=== PATIENT | male | born 1950 | race Caucasian/White ===

== ENCOUNTER → 2016-07-25 | Day surgery (SDC) | payer OTHER ==
[~2016-07-25] VITALS: Ht 167.6 cm; Wt 60.2 kg
[~2016-07-25] MED LIST: ALPR0.25 PO; AMOX250C CHEW; AMOX875T2 PO; AMOXSUS PO; AMPICILLIN-SULBACTAM INJ 3 GM VIAL ONE; AMPICILLIN/SULBAC 3 GM/NS 100 ML IV SCH; DEXA2TAB PO; DEXAMETHASONE SOD PHOS 4 MG/ML VIAL ONE; DO NOT ADM ANY ANTICOAGULANT DRUGS XX PRN; FLUC100T2 PO; HYDR-3534 PO; HYDR-3580 PO; HYDR2TAB PO; INSULIN HUMAN REGULAR 1,000 UNITS/10 ML VIAL SQ PRN; LACTATED RINGER'S 1000 ML INJ 1,000 ML IV SCH; LACTATED RINGER'S 1000 ML IV SCH; METOPROLOL TARTRATE 25 MG TAB PO PRN; MIDAZOLAM HCL 2 MG/2 ML VIAL ONE; MILKSUS PO; MISC-163; MORP15TA73 PO; MOTR200T4 PO; OMEP20TA PO; ONDANSETRON HCL 4 MG/2 ML VIAL IV PUSH ONE; PROPOFOL 200 MG/20 ML AMP IV ONE; SENO8.6T5 PO; SODIUM CHLORID 0.9% 500 ML IV SCH; SODIUM CHLORIDE 0.9% INJ 100 ML ONE; WALKER WHEELS/F1 MIS; WHEEMIS3; fentaNYL CITRATE 250 MCG/5 ML AMP ONE
[2016-07-25 08:37] VITALS: BP 163/83; PULSE 98; RESP 18; TEMP 98.1; O2SAT 99
[2016-07-25 11:59] VITALS: BP 147/76; PULSE 84; RESP 18; TEMP 97.5; O2SAT 96
--- NOTE | 2016-07-25 17:25 | EKG ---
Date Performed: 07/25/2016 Time Performed: 08:56:43 PTAGE: 65 years EKG: Sinus rhythm MARKED LEFT AXIS DEVIATION ABNORMAL ECG NO PREVIOUS TRACING DOCTOR: Carlos Spear Interpretating Date/Time 07/25/2016 17:23:47
--- NOTE | 2016-09-05 23:29 | MP ---
cc: MARSHALL MATTHEW M.D. DATE OF SURGERY: July 25, [address] Marshall Matthew PREOPERATIVE DIAGNOSIS Metastatic squamous cell carcinoma of unknown primary. Mass left lateral neck. POSTOPERATIVE DIAGNOSIS: Metastatic squamous cell carcinoma of unknown primary. Mass left lateral neck. OPERATION PERFORMED 1. Direct laryngoscopy. 2. Fine needle aspiration biopsy of left neck mass x2. INDICATIONS Documented in the history and physical. DESCRIPTION OF OPERATION The patient was taken to OR #6 and placed in the supine position following induction of general anesthesia and intubation. A shoulder roll and a Sarwat head drape were put in place. A McIvor mouth gag was put in place and the oral cavity was examined manually and physically. There was no evidence of any mucosal lesions throughout the oral cavity, floor of mouth or base of tongue. The McIvor mouth gag was removed and the anterior commissure scope was brought into the field. Hypopharynx and larynx were brought into view. Careful inspection of the hypopharynx and larynx showed no evidence of mucosal lesions. The scope was then removed. The left neck mass was then addressed. It was cleaned with alcohol wipes and two separate needle aspiration biopsies were obtained. The first showed numerous small fragments of tissue. The second showed some thin brown fluid. These were both prepared for histological examination. The procedure was terminated. The patient was reversed from anesthesia and taken to recovery in good condition. No complications or blood loss. MD YONG Winters/CORRY /2:19 PM /11:26 PM
== END | disposition home or self-care (01) ==
LOC: HSDC 07:33
PROVIDERS: ATTEND Otolaryngology
DX: C79.89 Secondary malignant neoplasm of other specified sites (principal); R49.0 Dysphonia; R05 Cough; F17.210 Nicotine dependence, cigarettes, uncomplicated; Z01.810 Encounter for preprocedural cardiovascular examination
CPT/HCPCS: 00300; 10021; 31525; 93005; J0295; J1100; J2250; J2405; J3010; J7120

== ENCOUNTER → 2016-08-22 | Day surgery (SDC) | payer OTHER ==
[~2016-08-22] VITALS: Ht 167.6 cm; Wt 53.1 kg
[~2016-08-22] MED LIST changes: -AMPICILLIN/SULBAC 3 GM/NS 100 ML IV SCH; -DEXAMETHASONE SOD PHOS 4 MG/ML VIAL ONE; -DO NOT ADM ANY ANTICOAGULANT DRUGS XX PRN; -HYDR-3534 PO; -INSULIN HUMAN REGULAR 1,000 UNITS/10 ML VIAL SQ PRN; +LABETALOL HCL 100 MG/20 ML VIAL ONE; -LACTATED RINGER'S 1000 ML INJ 1,000 ML IV SCH; +LACTATED RINGER'S 1000 ML INJ 1,000 ML ONE; -LACTATED RINGER'S 1000 ML IV SCH; -METOPROLOL TARTRATE 25 MG TAB PO PRN; +MORPHINE SULFATE 4 MG/ML INJ ONE; -MOTR200T4 PO; +OXYMETAZOLINE HCL 0.05% 15 ML NASAL SPRAY NASAL ONE; -PROPOFOL 200 MG/20 ML AMP IV ONE; -SODIUM CHLORID 0.9% 500 ML IV SCH; -fentaNYL CITRATE 250 MCG/5 ML AMP ONE
[2016-08-22 06:58] VITALS: BP 157/48; PULSE 88; RESP 20; TEMP 97.9; O2SAT 100
[2016-08-22 09:35] VITALS: TEMP 97.8
[2016-08-22 10:00] VITALS: BP 153/77; PULSE 66; RESP 16; O2SAT 99
--- NOTE | 2016-08-24 07:39 | MP ---
cc: MARSHALL LONDON M.D. DATE OF OPERATION August 22, [address] 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 OPERATION PERFORMED 1. Survey biopsies of bilateral nasopharynx in search of primary. 2. Tonsillectomy. 3. Bilateral base of tongue biopsies. 4. Bilateral floor of mouth biopsies. INDICATIONS Marshall Long is a 65-year-old man with biopsy proven squamous cell carcinoma metastases of the left neck. Previous attempts at biopsy of oropharynx had shown no evidence of primary. His oncologist has requested further survey biopsies to try and clarify the site of the primary lesion prior to beginning radiation and chemotherapy treatment. DESCRIPTION OF OPERATION The patient was taken to OR #2 and placed in the supine position. Following induction of general anesthesia and intubation, the nose was packed bilaterally with cotton pledgets saturated in 0.05% Oxymetazoline. These remained in place while a McIvor mouth gag was put in place. The packing was then removed and using nasopharyngeal mirror for visual guidance, biopsies were obtained from the bilateral fossa of Rosenm ller using a Blakesley forceps passed via the nasal cavity. These biopsies were separately labeled and passed off the field for histologic examination. When this was completed, examination of the nasopharynx showed there to be asymmetry of tonsils with the left side larger than the right. Palpation of tonsils showed a thickening of tissue but no discrete mass within the left tonsil. The left tonsil was removed as excisional biopsy using the coblator technique on the right. A biopsy was obtained using Blakesley forceps from the right tonsil tissue. Direct laryngoscope was then used to bring in the view of the hypopharynx and the base of tongue and biopsies were obtained from the bilateral base of tongue. These were also separately labeled and passed off the field for histological examination and finally biopsies were obtained from the bilateral anterior floor of mouth. These were separately labeled and passed off the field as specimens. The McIvor mouth gag was then removed and the procedure was terminated. The patient was reversed from anesthesia and taken to Recovery in good condition. There were no complications. Blood loss was less than 10 mL. MD YONG Winters/BURTON /2:16 PM /7:26 AM
== END | disposition home or self-care (01) ==
LOC: PHSDC 06:23
PROVIDERS: ATTEND Otolaryngology
DX: C77.0 Secondary and unspecified malignant neoplasm of lymph nodes of head, face and neck (principal); C80.1 Malignant (primary) neoplasm, unspecified; J03.90 Acute tonsillitis, unspecified
CPT/HCPCS: 00170; 31535; 42806; 42826; 88304; 88305; J0295; J2250; J2270; J2405; J3010; J7120

== ENCOUNTER 2016-09-28 08:01 | Day surgery (SDC) | payer OTHER ==
[~2016-09-28] VITALS: Ht 165.1 cm; Wt 46.4 kg
[~2016-09-28 08:01] MED LIST changes: -ALPR0.25 PO; -AMOX250C CHEW; -AMOX875T2 PO; -AMOXSUS PO; -AMPICILLIN-SULBACTAM INJ 3 GM VIAL ONE; -FLUC100T2 PO; -HYDR-3580 PO; -LABETALOL HCL 100 MG/20 ML VIAL ONE; -LACTATED RINGER'S 1000 ML INJ 1,000 ML ONE; -MIDAZOLAM HCL 2 MG/2 ML VIAL ONE; -MILKSUS PO; -MISC-163; -MORPHINE SULFATE 4 MG/ML INJ ONE; -OMEP20TA PO; -ONDANSETRON HCL 4 MG/2 ML VIAL IV PUSH ONE; -OXYMETAZOLINE HCL 0.05% 15 ML NASAL SPRAY NASAL ONE; -SENO8.6T5 PO; -SODIUM CHLORIDE 0.9% INJ 100 ML ONE; -WALKER WHEELS/F1 MIS; -WHEEMIS3
[2016-09-28 08:20] VITALS: BP 110/69; PULSE 95; RESP 20; TEMP 97.7; O2SAT 92
[2016-09-28] MEDS ORDERED: ceFAZolin 2 GM PREMIX 50 ML - gastrostomy and jejunostomy initial insertion IV SCH (08:30)
[2016-09-28] MEDS ORDERED: SODIUM CHLORIDE 0.9% 1000 ML IV SCH (08:30)
[2016-09-28] MEDS ORDERED: AMOX250C CHEW (08:32)
[2016-09-28] MEDS ORDERED: OMEP20TA PO (08:32)
[2016-09-28 09:02] LABS: APTT (PATIENT) 25.9 SEC (24.3-30.1); PROTHROMBIN TIME - PATIENT 10.9 SEC (9.8-11.6)
[2016-09-28] MEDS ORDERED: MIDAZOLAM HCL 5 MG/5 ML VIAL ONE (10:10)
[2016-09-28] MEDS ORDERED: fentaNYL CITRATE 250 MCG/5 ML AMP ONE (10:11)
[2016-09-28] MEDS ORDERED: GLUCAGON 1 MG/ML VIAL ONE (10:18)
[2016-09-28 10:50] VITALS: BP 107/59; PULSE 76; RESP 18; TEMP 98.1; O2SAT 97
[2016-09-28] MEDS ORDERED: IOHEXOL 350 MG/ML 50 ML BTL (for RAD DIAG) G-TUBE ONE (10:50)
--- NOTE | 2016-09-28 11:02 | PD.RAD ---
Post Procedure Progress Note Pre Procedure Diagnosis: (1) Mass of left side of neck Post Procedure Diagnosis: (1) Mass of left side of neck Procedure Date: Sep 28, 2016 Supervising Radiologist: Hugo Brandon JR Proceduralist/Assist: Magda Robles, RT(R), Yun Degroot RT(R)() Anesthesia: Conscious Sedation Plan of Activity Patient to Unit: ROPU Patient Condition: Good See PACS Report for procedural detail/treatment Feeding Tube Gastrostomy Placement Colombian: 18 Findings: G tube in good position. Plan T fasteners should fall off in approx 2-3 weeks Jr. Aleksandr,Huog Lindsey MD Sep 28, 2016 11:02
[2016-09-28 11:05] VITALS: BP 108/57; PULSE 75; RESP 18; O2SAT 96
--- NOTE | 2016-09-28 11:23 | RADRPT ---
EXAM DATE/TIME: 09/28/2016 08:43 [facility] COMPARISON: No previous studies available for comparison. INDICATIONS : Patient with history of squamous cell cancer of the neck in need of G-tube placement. MEDICAL HISTORY : Left neck mass, Gout SURGICAL HISTORY : Left ear surgery, Left neck mass biopsy ENCOUNTER: Initial ACUITY: 1 month PAIN SCORE: 0/10 FLUORO TIME: 4.4 minutes IMAGE SERIES: 1 SEDATION TIME: 30 minutes CONTRAST: 5 cc Omnipaque (iohexol) 350 MEDICATION(S): 1.) 2 mg midazolam (Versed) IV 2.) 100 mcg Fentanyl (Sublimaze) IV Prophylactic antibiotics were administered with appropriate pre-procedure timing. Vancomycin within 2 hours of procedure, Ancef (or alternative) within 1 hour of procedure. DEVICE(S): 1.) 18 Fr gastrostomy tube PROCEDURE : 1. Limited abdominal ultrasound. 2. Fluoroscopically guided gastrostomy tube placement. 3. Conscious sedation with continuous EKG and oximetry monitoring. The risks, benefits and alternatives to the procedure were explained and verbal and written consent w as obtained. The site was prepped in sterile fashion. Full sterile technique was used, including ca p, mask, sterile gloves and gown and a large sterile sheet. Hand hygiene and 2% chlorhexidine and/or betadine/alcohol prep was utilized per protocol for cutaneous antisepsis. The skin and subcutaneous tissues were infiltrated with local anesthetic solution. Ultrasound was used to nato the position of the liver. The stomach was insufflated with room air. Th ree percutaneous fasteners were placed to secure the anterior gastric wall. A small incision was made between the fasteners. The stomach was accessed with an 18 gauge needle. A n 0.035 wire was advanced into the small bowel. The tract was dilated. The gastrostomy tube was int roduced through a peel-away sheath. The position was confirmed with an injection of contrast. Conscious sedation was performed with the prescribed dosages and duration as above in the presence of an independent trained radiology nurse to assist in the monitoring of the patient. EKG and oximetry remained stable throughout the procedure. The patient tolerated the procedure well and there were n o complications. The patient was sent to post anesthesia recovery in stable condition. CONCLUSION: Uncomplicated gastrostomy tube placement as above. Hugo Brandon Jr., MD on September 28, 2016 at 11:17 Board Certified Radiologist. This report was verified electronically.
[2016-09-28 11:35] VITALS: BP 120/59; PULSE 66; RESP 16; O2SAT 92
[2016-09-28 12:05] VITALS: BP 119/60; PULSE 69; RESP 18; O2SAT 90
[2016-09-28 13:05] VITALS: BP 124/70; PULSE 72; RESP 18; O2SAT 94
== END 2016-09-28 13:25 | disposition home or self-care (01) ==
LOC: HROP 08:01 → HRIP 08:02 → HROP 13:25
PROVIDERS: ATTEND Internal Medicine
DX: R22.1 Localized swelling, mass and lump, neck (principal); Z85.828 Personal history of other malignant neoplasm of skin
CPT/HCPCS: 49440; 76942; 85610; 85730; 99152; 99153; C1769; C1887; J0690; J1610; J2250; J3010; J7030; Q9967

== ENCOUNTER 2016-10-02 08:33 | Day surgery (SDC) | payer OTHER ==
[~2016-10-02] VITALS: Ht 165.1 cm; Wt 45.9 kg
[~2016-10-02 08:33] MED LIST changes: +AMOX250C CHEW; +OMEP20TA PO
[2016-10-02] MEDS ORDERED: ceFAZolin 2 GM PREMIX 50 ML - gastrostomy and jejunostomy initial insertion IV SCH (10:00)
[2016-10-02] MEDS ORDERED: VANCOMYCIN 1000 MG/NS 250 ML - implanted port/tunneled catheter IV SCH ×2 (10:00)
[2016-10-02] MEDS ORDERED: POVIDONE IODINE 5% (ANTISEPSIS KIT) 4 APPLICATIONS EACH NARE SCH (10:00)
[2016-10-02] MEDS ORDERED: CHLORHEXIDINE GLUCONATE 2 % 1 PACK (2 CLOTHS) TOPICAL SCH (10:00)
[2016-10-02] MEDS ORDERED: fentaNYL CITRATE 250 MCG/5 ML AMP ONE (10:45)
[2016-10-02] MEDS ORDERED: MIDAZOLAM HCL 5 MG/5 ML VIAL ONE (10:45)
[2016-10-02] MEDS ORDERED: LIDOCAINE 1%/EPINEPHrine 1:100,000 SOLN 30 ML VIAL ONE (11:06)
[2016-10-02 12:15] VITALS: BP 128/68; PULSE 90; RESP 18; TEMP 98.4; O2SAT 98
[2016-10-02 12:30] VITALS: BP 131/66; PULSE 85; RESP 18; O2SAT 96
[2016-10-02 13:00] VITALS: BP 130/53; PULSE 86; RESP 16; O2SAT 92
[2016-10-02] MEDS ORDERED: SODIUM CHLORIDE 0.9% FLUSH 5 ML FLUSH IVF PRN (13:00)
--- NOTE | 2016-10-02 13:00 | PD.RAD ---
Post Procedure Progress Note Pre Procedure Diagnosis: (1) Head and neck cancer Post Procedure Diagnosis: (1) Head and neck cancer Procedure Date: Oct 02, 2016 Supervising Radiologist: Abe Jolly Proceduralist/Assist: RT Brannon(R)() Anesthesia: Local, Conscious Sedation Plan of Activity Patient to Unit: ROPU Patient Condition: Good See PACS Report for procedural detail/treatment Central Venous Access Device Procedure 1 Right Internal Jugular Infusaport Placement single lumen German: 8 Abe Jolly MD Oct 02, 2016 13:00
[2016-10-02 13:30] VITALS: BP 125/62; PULSE 86; RESP 16; O2SAT 97
--- NOTE | 2016-10-02 16:25 | RADRPT ---
EXAM DATE/TIME: 10/02/2016 10:59 [facility] COMPARISON: No previous studies available for comparison. INDICATIONS : Patient with a history of head and neck cancer. MEDICAL HISTORY : Head and neck cancer SURGICAL HISTORY : Left tonsillectomy biopsy ENCOUNTER: Subsequent ACUITY: 1 month PAIN SCORE: 0/10 FLUORO TIME: 0.9 minutes IMAGE SERIES: 0 SEDATION TIME: 30 minutes ACCESS: Right internal jugular vein SEDATION: 1.) 3 mg midazolam (Versed) IV 2.) 150 mcg fentanyl (Sublimaze) IV Prophylactic antibiotics were administered with appropriate pre-procedure timing. Vancomycin within 2 hours of procedure, Ancef (or alternative) within 1 hour of procedure. DEVICE: 1. 8 Qatari single lumen Bard Power Port PROCEDURE : 1. Continuous pulse oximetry and EKG monitoring. 2. Intravenous conscious sedation. 3. Ultrasound guidance for venous access. 4. Fluoroscopic guided implantable central venous port placement. The patient was placed supine. The neck was prepped in sterile fashion. Full sterile technique was u sed, including cap, mask, sterile gloves and gown, and a large sterile sheet. Hand hygiene and 2% ch lorhexidine Betadine was utilized per protocol for cutaneous antisepsis with appropriate dry time for site. The skin and subcutaneous tissues were infiltrated with local anesthetic solution. Under direct ultrasound guidance, central venous access was accomplished in the targeted vessel. The ultrasound images depicting access guidance were stored and saved to PACS for permanent record. A s ubcutaneous pocket was created using blunt dissection. The port was introduced to the pocket. The c atheter tubing was fed through a subcutaneous tunnel to the venotomy site. The catheter tubing was c ut to a suitable length and then was introduced through a valved Peel-Away sheath and positioned with catheter tubing tip at the cavo-atrial junction level. The pocket incision was closed with subcutic ular Vicryl suture. Steri-Strips were applied. The port was flushed and locked with heparin solutio n per protocol. Sterile dressing was applied to the site. The patient tolerated the procedure well. Conscious sedation was performed with the prescribed dosages and duration as above in the presence of an independent trained radiology nurse to assist in the monitoring of the patient. EKG and oximetry remained stable throughout the procedure. The patient tolerated the procedure well and there were no complications. The patient was sent to post anesthesia recovery in stable condition. CONCLUSION: Uncomplicated ultrasound and fluoroscopic guided implanted central venous port catheter placement as described in detail above. An 8 Qatari Power port was placed. Abe Jolly MD on October 02, 2016 at 16:22 Board Certified Radiologist. This report was verified electronically.
== END 2016-10-02 14:15 | disposition home or self-care (01) ==
LOC: HROP 08:33 → HRIP 08:37 → HROP 14:15
PROVIDERS: ATTEND Internal Medicine
DX: Z45.2 Encounter for adjustment and management of vascular access device (principal); C76.0 Malignant neoplasm of head, face and neck
CPT/HCPCS: 36561; 76937; 77001; 99152; 99153; C1788; J0690; J1642; J2250; J3010; J3370; J7050

== ENCOUNTER 2016-10-31 16:06 | Inpatient (IN) | payer OTHER, MEDICARE ==
[2016-10-31] VITALS (7 sets, daily range): BP systolic 90–118; BP diastolic 53–58; PULSE 69–86; RESP 16; O2SAT 93–98
[~2016-10-31] VITALS: Ht 170.2 cm; Wt 42.0 kg
[~2016-10-31 16:06] MED LIST changes: -AMOX250C CHEW
--- NOTE | 2016-10-31 16:21 | PD ---
Physical Exam Time Seen by Provider: 16:15 Narrative 66 year old male with history of neck cancer currently being treated with radiation and chemo is sent here by Dr. Guthrie for evaluation of AMS, and possible dehydration. Pt has been unable to eat or drink for a couple days. Does have a PEG tube but family has not started nutrition because the "wants a professional" to do it the first time. states the pt has been hallucinating. Pt has had decreased urinary output. No fever or chills. Data Data Last Documented VS Vital Signs Date Time Temp Pulse Resp B/P Pulse Ox O2 Delivery O2 Flow Rate FiO2 10/31/16 16:42 98 Room Air 10/31/16 16:24 86 16 91/54 Orders Complete Blood Count With Diff (10/31/16 16:32) Comprehensive Metabolic Panel (10/31/16 16:32) Prothrombin Time / Inr (Pt) (10/31/16 16:32) Act Partial Throm Time (Ptt) (10/31/16 16:32) Urinalysis - C+S If Indicated (10/31/16 16:32) Iv Access Insert/Monitor (10/31/16 16:32) Ecg Monitoring (10/31/16 16:32) Oximetry (10/31/16 16:32) Sodium Chlor 0.9% 1000 Ml Inj (Ns 1000 M (10/31/16 16:32) Electrocardiogram (10/31/16 16:32) Lactic Acid (10/31/16 16:32) Ct Brain W/O Iv Contrast(Rout) (10/31/16 ) Sodium Chlor 0.9% 1000 Ml Inj (Ns 1000 M (10/31/16 18:01) Admit Order (Ed Use Only) (10/31/16 18:08) Potassium Chloride Eff (K-Lyte Cl Eff) (10/31/16 18:15) Consult Radiation Oncology (10/31/16 ) Place In Observation (10/31/16 ) Vital Signs (Adult) Q4H (10/31/16 18:12) Activity Oob With Assistance (10/31/16 18:12) Intake + Output PRANAV.QSHIFT (10/31/16 18:12) Diet Npo (10/31/16 Dinner) Sodium Chlor 0.9% 1000 Ml Inj (Ns 1000 M (10/31/16 18:12) Sodium Chloride 0.9% Flush (Ns Flush) (10/31/16 18:15) Sodium Chloride 0.9% Flush (Ns Flush) (10/31/16 21:00) Acetaminophen (Tylenol) (10/31/16 18:15) Ondansetron Inj (Zofran Inj) (10/31/16 18:15) Magnesium Hydroxide Liq (Milk Of Magnesi (10/31/16 18:15) Temazepam (Restoril) (10/31/16 18:15) Basic Metabolic Panel (Bmp) (11/01/16 06:00) Comprehensive Metabolic Panel (11/01/16 06:00) Resp Oxygen Chito C Titrat 1-4 L (10/31/16 ) Pt Request For Service (10/31/16 18:12) Case Management Consult (10/31/16 18:12) Enoxaparin Inj (Lovenox Inj) (10/31/16 18:15) Scd Bilateral/Knee High PRANAV.BID (10/31/16 18:12) Cody Bilateral/Knee High PRANAV.QSHIFT (10/31/16 18:12) Labs Laboratory Tests Test 10/31/16 17:10 White Blood Count 4.5 TH/MM3 Red Blood Count 2.58 MIL/MM3 Hemoglobin 8.9 GM/DL Hematocrit 24.8 % Mean Corpuscular Volume 96.0 FL Mean Corpuscular Hemoglobin 34.3 PG Mean Corpuscular Hemoglobin 35.7 % Concent Red Cell Distribution Width 14.6 % Platelet Count 37 TH/MM3 Mean Platelet Volume 8.0 FL Neutrophils (%) (Auto) 84.8 % Lymphocytes (%) (Auto) 9.2 % Monocytes (%) (Auto) 5.1 % Eosinophils (%) (Auto) 0.3 % Basophils (%) (Auto) 0.6 % Neutrophils # (Auto) 3.8 TH/MM3 Lymphocytes # (Auto) 0.4 TH/MM3 Monocytes # (Auto) 0.2 TH/MM3 Eosinophils # (Auto) 0.0 TH/MM3 Basophils # (Auto) 0.0 TH/MM3 CBC Comment AUTO DIFF Differential Comment AUTO DIFF CONFIRMED Platelet Estimate LOW Platelet Morphology Comment NORMAL Prothrombin Time 11.5 SEC Prothromb Time International 1.0 RATIO Ratio Activated Partial 31.6 SEC Thromboplast Time Sodium Level 130 MEQ/L Potassium Level 3.2 MEQ/L Chloride Level 93 MEQ/L Carbon Dioxide Level 27.3 MEQ/L Anion Gap 10 MEQ/L Blood Urea Nitrogen 19 MG/DL Creatinine 1.05 MG/DL Estimat Glomerular Filtration 70 ML/MIN Rate Random Glucose 109 MG/DL Lactic Acid Level 0.6 mmol/L Calcium Level 8.6 MG/DL Total Bilirubin 0.7 MG/DL Aspartate Amino Transf 9 U/L (AST/SGOT) Alanine Aminotransferase 14 U/L (ALT/SGPT) Alkaline Phosphatase 94 U/L Total Protein 6.6 GM/DL Albumin 2.5 GM/DL [facility] Medical Record Reviewed: Yes Supervised Visit with SHONDA: No Narrative Course 66 year old male presents to ED for evaluation of AMS and possible dehydration. Appears ill. Mildly hypotensive, otherwise VSS. Condition: Stable Maite Erwin Oct 31, 2016 16:21
[2016-10-31] MEDS ORDERED: SODIUM CHLOR 0.9% 1000 ML INJ 1,000 ML IV SCH ×2 (16:32→18:01)
[2016-10-31] MEDS ORDERED: ALPR0.25 PO (17:11)
[2016-10-31] MEDS ORDERED: FLUC100T2 PO (17:11)
[2016-10-31 17:31] LABS: AUTOMATED NEUTROPHIL # 3.8 TH/MM3 (1.8-7.7); BASOPHIL % 0.6 % (0.0-2.0); EOSINOPHIL % 0.3 % (0.0-4.0); HEMATOCRIT 24.8 % (39.0-51.0); LYMPH % 9.2 % (9.0-44.0); LYMPHOCYTE # 0.4 TH/MM3 (1.0-4.8); MEAN CORPUSCULAR HEMOGLOBIN 34.3 PG (27.0-34.0); MEAN CORPUSCULAR HGB CONC 35.7 % (32.0-36.0); MONO % 5.1 % (0.0-8.0); NEUT % 84.8 % (16.0-70.0); PLATELET COUNT 37 TH/MM3 (150-450); RED BLOOD COUNT 2.58 MIL/MM3 (4.50-5.90); RED CELL DISTRIBUTION WIDTH 14.6 % (11.6-17.2); WHITE BLOOD COUNT 4.5 TH/MM3 (4.0-11.0)
[2016-10-31 17:36] LABS: HEMO FLAGS AUTO DIFF
[2016-10-31 17:41] LABS: APTT (PATIENT) 31.6 SEC (24.3-30.1); PROTHROMBIN TIME - PATIENT 11.5 SEC (9.8-11.6)
[2016-10-31 17:50] LABS: ALT (GPT) 14 U/L (12-78); ANION GAP 10 MEQ/L (5-15); AST (GOT) 9 U/L (15-37); BICARBONATE 27.3 MEQ/L (21.0-32.0); BLOOD UREA NITROGEN 19 MG/DL (7-18); CHLORIDE 93 MEQ/L (98-107); GLOMERULAR FILTRATION RATE 70 ML/MIN (>89); POTASSIUM 3.2 MEQ/L (3.5-5.1); SODIUM (NA) 130 MEQ/L (136-145)
[2016-10-31 17:52] LABS: ALKALINE PHOSPHATASE 94 U/L (45-117); TOTAL BILIRUBIN ADULT 0.7 MG/DL (0.2-1.0)
--- NOTE | 2016-10-31 17:56 | RADRPT ---
EXAM DATE/TIME: 10/31/2016 17:20 [facility] COMPARISON: CT SIMULATION, September 07, 2016, 10:55. INDICATIONS : Altered mental status with dehydration ,post fall. RADIATION DOSE: 38.14 CTDIvol (mGy) MEDICAL HISTORY : Malignancy. SURGICAL HISTORY : port placement for chemo ENCOUNTER: Initial ACUITY: 1 day PAIN SCALE: 7/10 LOCATION: cranial TECHNIQUE: Multiple contiguous axial images were obtained of the head. Using automated exposure control and adj ustment of the mA and/or kV according to patient size, radiation dose was kept as low as reasonably a chievable to obtain optimal diagnostic quality images. FINDINGS: CEREBRUM: The ventricles are symmetric in size. No evidence of midline shift. No evidence of acute blood prod ucts. There is a focal hypodensity in the high convexity right frontal region extending to the subco rtical region. A prior CT simulation scan in August 2016 had demonstrated a similar size hypodensi ty. No evidence of mass effect. No extra-axial fluid collections. POSTERIOR FOSSA: The cerebellum and brainstem are intact. The 4th ventricle is midline. The cerebellopontine angle i s unremarkable. EXTRACRANIAL: The visualized portion of the orbits is intact. SKULL: The calvaria is intact. No evidence of skull fracture. CONCLUSION: No acute findings. The patient has had radiation therapy to the brain and there is a stable hypodens ity in the right frontal region. Hugo Goodman MD on October 31, 2016 at 17:51 Board Certified Radiologist. This report was verified electronically.
[2016-10-31] MEDS ORDERED: ACETAMINOPHEN 325 MG TAB PO PRN (18:15)
[2016-10-31] MEDS ORDERED: SODIUM CHLORIDE 0.9% FLUSH 10 ML FLUSH IV FLUSH PRN (18:15)
[2016-10-31] MEDS ORDERED: POTASSIUM CHLORIDE 25 MEQ EFFERVESCENT TAB PO ONE (18:15)
[2016-10-31] MEDS ORDERED: TEMAZEPAM 15 MG CAP PO PRN (18:15)
[2016-10-31] MEDS ORDERED: ONDANSETRON HCL 4 MG/2 ML VIAL IVP PRN (18:15)
[2016-10-31] MEDS ORDERED: ENOXAPARIN SODIUM 40 MG/0.4 ML SYRINGE SQ SCH (18:15)
[2016-10-31] MEDS ORDERED: MAGNESIUM HYDROXIDE SUSP 30 ML CUP PO PRN (18:15)
[2016-10-31 18:16] LABS: SCAN/DIFF AUTO DIFF CONFIRMED
[2016-10-31 18:18] LABS: PLATELET ESTIMATE SMEAR LOW (NORMAL); PLATELET MORPHOLOGY NORMAL (NORMAL)
--- NOTE | 2016-10-31 18:18 | PD ---
HPI Chief Complaint: Altered Mental Status Time Seen by Provider: 18:12 Travel History International Travel<30 days: No Contact w/Intl Traveler<30days: No Traveled to known affect area: No History of Present Illness HPI 66-year-old male that presents to the ED for evaluation of altered mental status. Patient has a chronic history of neck cancer and gets radiation as well as chemotherapy. Patient follows with Dr. Fernandez for medical oncology as well as Dr. daniel for radiation oncology. Patient has been compliant with treatment but continues to smoke. Patient had a PEG tube placed about 3 weeks ago. has not used it because she doesn't feel comfortable using it for the first time. Patient has not been able to eat or drink for the past 2 days. His be more altered than his usual. Per family she is usually very sharp but they have noted a significant decline in his mental status in the past 2 days. No fevers chills or sweats. Patient last received his radiation this morning and was seen by Dr. daniel who recommended that he comes to the ED to get admitted for hydration as well as further evaluation. Patient denies any other symptom. No bowel movement issues. No nausea or vomiting. She denies taking any blood thinners. No allergies to medication. Denies any new pain other than her chronic neck pain. PFSH Past Medical History Cancer: Yes (neck) Cardiovascular Problems: No Diabetes: No Diminished Hearing: No Endocrine: No Genitourinary: No Hepatitis: No Hiatal Hernia: No Immune Disorder: No Musculoskeletal: No Neurologic: No Psychiatric: No Reproductive: No Respiratory: No Immunizations Current: Yes Thyroid Disease: No Past Surgical History Abdominal Surgery: No AICD: No Body Medical Devices: none per pt Cardiac Surgery: No Ear Surgery: Yes (left ear) Endocrine Surgery: No Eye Surgery: No Genitourinary Surgery: No Gynecologic Surgery: No Joint Replacement: No Oral Surgery: No Pacemaker: No Thoracic Surgery: No Other Surgery: Yes (LT THROAT FOR CANCER) Social History Alcohol Use: No Tobacco Use: Yes Substance Use: No Allergies-Medications (Allergen,Severity, Reaction): Coded Allergies: No Known Allergies (Unverified , 10/02/16) Reported Meds & Prescriptions Reported Meds & Active Scripts Active Reported Alprazolam 0.25 Mg Tab 0.25 Mg PO Q4H PRN Fluconazole 100 Mg Tab 100 Mg PO DAILY Omeprazole 20 Mg Tab 20 Mg PO DAILY Morphine Sulfate CR (Morphine Sulfate) 15 Mg Tab 30 Mg PO BID Dexamethasone 2 Mg Tab 2 Mg PO DAILY Hydromorphone (Hydromorphone HCl) 2 Mg Tab 2 Mg PO Q6H PRN Review of Systems Except as stated in HPI: all other systems reviewed are Neg Physical Exam Narrative GENERAL: SKIN: Warm and dry. HEAD: Atraumatic. Normocephalic. EYES: Pupils equal and round. No scleral icterus. No injection or drainage. ENT: No nasal bleeding or discharge. Mucous membranes pink and moist. Tongue is midline. No uvula deviation. NECK: Trachea midline. No JVD. CARDIOVASCULAR: Regular rate and rhythm. No murmurs, S3, S4. RESPIRATORY: No accessory muscle use. Clear to auscultation. Breath sounds equal bilaterally. GASTROINTESTINAL: Abdomen soft, non-tender, nondistended. Hepatic and splenic margins not palpable. Patient has a PEG tube in place with no sign of erythema or infection MUSCULOSKELETAL: Extremities without clubbing, cyanosis, or edema. No obvious deformities. Full range of motion of the upper and lower extremities bilaterally. 2+ pulses bilaterally. NEUROLOGICAL: Awake and alert. No obvious cranial nerve deficits. Motor grossly within normal limits. Five out of 5 muscle strength in the arms and legs. Normal speech. PSYCHIATRIC: Appropriate mood and affect; insight and judgment normal. Data Data Last Documented VS Vital Signs Date Time Temp Pulse Resp B/P Pulse Ox O2 Delivery O2 Flow Rate FiO2 10/31/16 16:42 98 Room Air 10/31/16 16:24 86 16 91/54 Orders Complete Blood Count With Diff (10/31/16 16:32) Comprehensive Metabolic Panel (10/31/16 16:32) Prothrombin Time / Inr (Pt) (10/31/16 16:32) Act Partial Throm Time (Ptt) (10/31/16 16:32) Urinalysis - C+S If Indicated (10/31/16 16:32) Iv Access Insert/Monitor (10/31/16 16:32) Ecg Monitoring (10/31/16 16:32) Oximetry (10/31/16 16:32) Sodium Chlor 0.9% 1000 Ml Inj (Ns 1000 M (10/31/16 16:32) Electrocardiogram (10/31/16 16:32) Lactic Acid (10/31/16 16:32) Ct Brain W/O Iv Contrast(Rout) (10/31/16 ) Sodium Chlor 0.9% 1000 Ml Inj (Ns 1000 M (10/31/16 18:01) Labs Laboratory Tests Test 10/31/16 17:10 White Blood Count 4.5 TH/MM3 Red Blood Count 2.58 MIL/MM3 Hemoglobin 8.9 GM/DL Hematocrit 24.8 % Mean Corpuscular Volume 96.0 FL Mean Corpuscular Hemoglobin 34.3 PG Mean Corpuscular Hemoglobin 35.7 % Concent Red Cell Distribution Width 14.6 % Platelet Count 37 TH/MM3 Mean Platelet Volume 8.0 FL Neutrophils (%) (Auto) 84.8 % Lymphocytes (%) (Auto) 9.2 % Monocytes (%) (Auto) 5.1 % Eosinophils (%) (Auto) 0.3 % Basophils (%) (Auto) 0.6 % Neutrophils # (Auto) 3.8 TH/MM3 Lymphocytes # (Auto) 0.4 TH/MM3 Monocytes # (Auto) 0.2 TH/MM3 Eosinophils # (Auto) 0.0 TH/MM3 Basophils # (Auto) 0.0 TH/MM3 CBC Comment AUTO DIFF Prothrombin Time 11.5 SEC Prothromb Time International 1.0 RATIO Ratio Activated Partial 31.6 SEC Thromboplast Time Sodium Level 130 MEQ/L Potassium Level 3.2 MEQ/L Chloride Level 93 MEQ/L Carbon Dioxide Level 27.3 MEQ/L Anion Gap 10 MEQ/L Blood Urea Nitrogen 19 MG/DL Creatinine 1.05 MG/DL Estimat Glomerular Filtration 70 ML/MIN Rate Random Glucose 109 MG/DL Lactic Acid Level 0.6 mmol/L Calcium Level 8.6 MG/DL Total Bilirubin 0.7 MG/DL Aspartate Amino Transf 9 U/L (AST/SGOT) Alanine Aminotransferase 14 U/L (ALT/SGPT) Alkaline Phosphatase 94 U/L Total Protein 6.6 GM/DL Albumin 2.5 GM/DL [facility] Medical Decision Making Medical Screen Exam Complete: Yes Emergency Medical Condition: Yes Medical Record Reviewed: Yes Interpretation(s) CBC & BMP Diagram 10/31/16 17:[address] 10/31/16 0000 Signed Impressions: Service Date/Time: Monday, October 31, 2016 17:20 - CONCLUSION: No acute findings. The patient has had radiation therapy to the brain and there is a stable hypodensity in the right frontal region. Hugo Goodman MD Differential Diagnosis Dehydration versus anorexia versus cancer versus medication side effect versus infection versus altered mental status versus CVA Narrative Course 66-year-old male that presents to the ED for evaluation of altered mental status. Patient was properly examined and was found to have signs and symptoms consistent appears to be slight altered mental status and dehydration. Patient is a cancer patient. Patient received radiation today and his radiologist oncologist want him to get evaluated for this as well as possible admitted. and patient agree with plan. At this time labs and imaging were ordered to eyes and of acute disease. Labs and imaging showed dehydration but no sign of acute ischemia. At this time I recommend admission. Patient was found to be slightly hypotensive as well as and imaging will low platelet count likely secondary to the chemotherapy. At this time I recommend IV fluids. Admission to medical team. Case was discussed with Dr. Bell who agrees to admission. My attending Dr. Montelongo agrees with plan. Diagnosis Primary Impression: Altered mental status Qualified Code: R41.82 - Altered mental status, unspecified altered mental status type Additional Impressions: Head and neck cancer Dehydration Admitting Information Admitting Physician Requests: Observation Paul Fernandez Oct 31, 2016 18:17
[2016-10-31] MEDS: SODIUM CHLOR 0.9% 1000 ML INJ 1,000 ML IV SCH (20:37)
[2016-10-31] MEDS: SODIUM CHLORIDE 0.9% FLUSH 10 ML FLUSH IV FLUSH SCH (21:00)
[2016-10-31] MEDS ORDERED: ALPRAZolam 0.25 MG TAB PO PRN (22:30)
--- NOTE | 2016-10-31 22:44 | HHI.HP ---
[facility] Jorge Gilbert MD Admission Diagnosis altered mental status, dehydration, inability to eat or drink Diagnoses: (1) Squamous cell carcinoma of head and neck (2) Altered mental status (3) Dehydration (4) Hypokalemia (5) Anemia (6) Hyponatremia (7) Acute renal insufficiency (8) Thrombocytopenia Chief Complaint: my brought me to hospital Travel History International Travel<30 Days: No Contact w/Intl Traveler <30 Da: No Traveled to Known Affected Are: No History of Present Illness Mr. 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 The patient is being treated by Dr. Sparkle Gilbert oncologist and Dr. Dominic Guthrie radiation oncologist. He has no primary care physician. A PEG tube was placed 3 weeks ago but this has not been used despite patients inability to eat or drink for the past few days. History was obtained from both a family friend at the bedside and from the patient. The patient frequently denies symptoms that the family friend reports he has been having. The patient has not been eating well and has not slept for 2 days. Since 10/28/2016, the patient has not been able to eat or drink well at all. He has had some nausea with a few episodes of vomiting according to the family friend. The family friend also reports that he has had some diarrhea but she is unable to tell us if the stools or black or bloody. The patient had impacted stool last week that was treated with a fleets enema ordered by Dr. Guthrie - which produced an unknown amount of stool but did produce some stool. The patient's family believes that he has been having decreased urinary output. They have also noted that he has been having a gurgling in his throat at the time he drinks liquids by mouth. The family reports that the patient has been dyspneic but the patient denies this. last dose chemo 10/24 hydration was 10/26 radiation every day sunday through sunday at 9a.m. Patient himself denies chest pain or shortness of breath. He reports significant pain at the left side of his neck where his cancer is located. . Review of Systems Except as stated in HPI: all other systems reviewed are Neg Past Family Social History Past Medical History Squamous cell carcinoma left neck discovered in June 2016 Likely undiagnosed COPD . Past Surgical History PEG tube Left neck tumor resection - 9 yrs ago . Reported Medications Reported Meds & Active Scripts Active Reported Alprazolam 0.25 Mg Tab 0.25 Mg PO Q4H PRN Fluconazole 100 Mg Tab 100 Mg PO DAILY Omeprazole 20 Mg Tab 20 Mg PO DAILY Morphine Sulfate CR (Morphine Sulfate) 15 Mg Tab 30 Mg PO BID Dexamethasone 2 Mg Tab 2 Mg PO DAILY Hydromorphone (Hydromorphone HCl) 2 Mg Tab 2 Mg PO Q6H PRN . Allergies: Coded Allergies: No Known Allergies (Unverified , 10/02/16) Active Ordered Medications Current Medications Sodium Chloride 1,000 ml @ 1,000 mls/hr Q1H IV Last administered on 10/31/16 17:07; Start 10/31/16 at 16:32; Stop 10/31/16 at 17:31; Status DC Sodium Chloride (NS 1000 ml Inj) 1,000 ml @ 1,000 mls/hr Q1H IV Last administered on 10/31/16 18:15; Start 10/31/16 at 18:01; Stop 10/31/16 at 19:00 ; Status DC Potassium Bicarb/ Potassium Chloride 25 meq 25 meq ONCE ONCE PO Last administered on 10/31/16 18:27; Start 10/31/16 at 18:15; Stop 10/31/16 at 18:16 ; Status DC Sodium Chloride (NS 1000 ml Inj) 1,000 ml @ 100 mls/hr Q10H IV Last administered on 10/31/16 20:37; Start 10/31/16 at 18:12 Sodium Chloride (NS Flush) 2 ml UNSCH PRN IV FLUSH FLUSH AFTER USING IV ACCESS ; Start 10/31/16 at 18:15 Sodium Chloride (NS Flush) 2 ml BID IV FLUSH ; Start 10/31/16 at 21:00 Acetaminophen (Tylenol) 650 mg Q4H PRN PO TEMP > 100.4; Start 10/31/16 at 18:15 Ondansetron HCl (Zofran Inj) 4 mg Q6H PRN IVP NAUSEA OR VOMITING; Start at 18:15 Magnesium Hydroxide (Milk Of Kory Liq) 30 ml Q12H PRN PO CONSTIPATION; Start 10/31/16 at 18:15 Temazepam (Restoril) 15 mg HS PRN PO INSOMNIA Last administered on 10/31/16t 22 :58; Start 10/31/16 at 18:15 Enoxaparin Sodium (Lovenox Inj) 40 mg Q24H SQ ; Start 10/31/16 at 18:15; Stop at 18:36; Status DC Alprazolam (Xanax) 0.25 mg Q4H PRN PO ANXIETY; Start 10/31/16 at 22:30 Dexamethasone (Decadron) 2 mg DAILY PO ; Start 11/01/16 at 09:00 Fluconazole (Diflucan) 100 mg DAILY PO ; Start 11/01/16 at 09:00 Hydromorphone HCl (Dilaudid) 2 mg Q6H PRN PO PAIN Last administered on t 22:58; Start 10/31/16 at 22:30 Morphine Sulfate (Oramorph Sr) 30 mg BID PO ; Start 11/01/16 at 09:00 Pantoprazole Sodium (Protonix) 20 mg DAILY PO ; Start 11/01/16 at 09:00 . Family History mom's family- heart attack cancer - in dad's family dad has lung cancer Social History smoked a whole pack of cigarrettes before coming here smoked since 19 yo or so, about a pack a day not drinking anymore, maybe 5 weeks ago no drug abuse Physical Exam Vital Signs Vital Signs Date Time Temp Pulse Resp B/P Pulse Ox O2 Delivery O2 Flow Rate FiO2 10/31/16 16:42 98 Room Air 10/31/16 16:24 86 16 91/54 93 Room Air Physical Exam GENERAL: This is a cachectic, chronically ill-appearing elderly male patient, in no apparent distress. SKIN: No rashes, ecchymoses or lesions. Cool and dry. HEAD: Atraumatic. Normocephalic. No temporal or scalp tenderness. EYES: No scleral icterus. No injection or drainage. ENT: Nose without bleeding, purulent drainage or septal hematoma. NECK: Trachea midline. No JVD . CARDIOVASCULAR: Regular rate and rhythm without murmurs, gallops, or rubs. RESPIRATORY: Bilateral inspiratory and expiratory rhonchi, respirations unlabored. GASTROINTESTINAL: Abdomen soft, non-tender, nondistended. Bowel sounds hypoactive No guarding. MUSCULOSKELETAL: Extremities without clubbing, cyanosis, or edema. No calf tenderness. NEUROLOGICAL: Awake and alert. Normal speech. . Laboratory Laboratory Tests Test 10/31/16 17:10 White Blood Count 4.5 Red Blood Count 2.58 Hemoglobin 8.9 Hematocrit 24.8 Mean Corpuscular Volume 96.0 Mean Corpuscular Hemoglobin 34.3 Mean Corpuscular Hemoglobin 35.7 Concent Red Cell Distribution Width 14.6 Platelet Count 37 Mean Platelet Volume 8.0 Neutrophils (%) (Auto) 84.8 Lymphocytes (%) (Auto) 9.2 Monocytes (%) (Auto) 5.1 Eosinophils (%) (Auto) 0.3 Basophils (%) (Auto) 0.6 Neutrophils # (Auto) 3.8 Lymphocytes # (Auto) 0.4 Monocytes # (Auto) 0.2 Eosinophils # (Auto) 0.0 Basophils # (Auto) 0.0 CBC Comment AUTO DIFF Differential Comment AUTO DIFF CONFIRMED Platelet Estimate LOW Platelet Morphology Comment NORMAL Prothrombin Time 11.5 Prothromb Time International 1.0 Ratio Activated Partial 31.6 Thromboplast Time Sodium Level 130 Potassium Level 3.2 Chloride Level 93 Carbon Dioxide Level 27.3 Anion Gap 10 Blood Urea Nitrogen 19 Creatinine 1.05 Estimat Glomerular Filtration 70 Rate Random Glucose 109 Lactic Acid Level 0.6 Calcium Level 8.6 Total Bilirubin 0.7 Aspartate Amino Transf 9 (AST/SGOT) Alanine Aminotransferase 14 (ALT/SGPT) Alkaline Phosphatase 94 Total Protein 6.6 Albumin 2.5 Result Diagram: 10/31/16 1710 10/31/16 1710 Imaging Last Impressions Head CT 10/31/16 0000 Signed Impressions: Service Date/Time: Monday, October 31, 2016 17:20 - CONCLUSION: No acute findings. The patient has had radiation therapy to the brain and there is a stable hypodensity in the right frontal region. Hugo Goodman MD Chest X-Ray 10/31/16 0000 Signed Impressions: Service Date/Time: Monday, October 31, 2016 23:04 - CONCLUSION: Faint nodular densities overlying each of the lungs. Noncontrast chest CT is recommended. Somewhat narrowed trachea. Myron Yuan MD Assessment and Plan Problem List: (1) Squamous cell carcinoma of head and neck ICD Code: C76.0 Status: Acute (2) Altered mental status ICD Code: R41.82 Status: Acute (3) Dehydration ICD Code: E86.0 Status: Acute (4) Hypokalemia ICD Code: E87.6 Status: Acute (5) Anemia ICD Code: D64.9 Status: Acute (6) Hyponatremia ICD Code: E87.1 Status: Acute (7) Acute renal insufficiency ICD Code: N28.9 Status: Acute (8) Thrombocytopenia ICD Code: D69.6 Status: Acute (9) Protein calorie malnutrition ICD Code: E46 Status: Chronic Assessment and Plan Mr. 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 The patient is being treated by Dr. Sparkle Gilbert oncologist and Dr. Dominic Guthrie radiation oncologist. He has no primary care physician. A PEG tube was placed 3 weeks ago but this has not been used despite patients inability to eat or drink for the past few days. Squamous cell carcinoma of the left neck with unknown primary - consult medical and radiation oncology - continue home analgesic regimen Altered mental status - Head CT with no acute findings; stable hypodensity in right frontal region noted - improving with fluid hydration Hypokalemia - Potassium 3.2 - replacement ordered and given - Recheck BMP in a.m. and follow potassium level results Mild acute renal insufficiency likely secondary to mild dehydration - BUN 19, creatinine 1.05, estimated GFR 70 - previously bun 15, creatinine 0.83 , estimated GFR 92 on 10/23/2016 - IV fluid hydration with normal saline at 100 cc per hour - Recheck BMP in a.m. and follow trends in renal indices Anemia - suspect secondary to chemotherapy - Hemoglobin 8.9 in hematocrit 24.8; was 10.6 and 29.5 on 10/23/2016 - Recheck CBC in a.m. and follow trends Thrombocytopenia - Platelet count 37,000 - DVT chemoprophylaxis contraindicated - Recheck CBC in a.m. and follow trends Hyponatremia, appears possibly chronic when compared to prior labs though results only available since October 03, 2016 - Sodium 130 - Replace with IV fluid hydration with normal saline at 100 cc per hour - BMP to be repeated in a.m. and will follow results and sodium level Protein calorie malnutrition - Albumin 2.5 - consult research physiologist for assistance with tube feeding recommendations DVT prophylaxis - SCDs Written by Mere Monahan, acting as scribe for Dr. Vazquez on 11/01/16 at 22:44. This note was transcribed by scribe [Mere Monahan]. I, Dr. Jitendra Vazquez personally performed the history, physical exam, and medical decision making; and confirmed the accuracy of the information in the transcribed note. Authenticated by Dr. Jitendra Vazquez on 11/01/16 at 22:44. . Discussed Condition With ER physician, RN, and patient and friend at bedside . Problem Qualifiers (1) Altered mental status: Qualified Code: R41.82 - Altered mental status, unspecified altered mental status type Mere Monahan Oct 31, 2016 22:44 Jitendra Vazquez MD Nov 01, 2016 08:44
[2016-10-31] MEDS: HYDROmorphone HCL 2 MG TAB PO PRN (22:58)
--- NOTE | 2016-10-31 23:12 | RADRPT ---
EXAM DATE/TIME: 10/31/2016 23:04 [facility] COMPARISON: No previous studies available for comparison. INDICATIONS : Congestion. MEDICAL HISTORY : Malignancy SURGICAL HISTORY : Infusaport ENCOUNTER: Initial ACUITY: 1 day PAIN SCORE: 07/25 LOCATION: Bilateral chest FINDINGS: A single view of the chest demonstrates a right IJ Akjhhs-a-Jdjd catheter. The cardiomediastinal con tours are unremarkable. Osseous structures are intact. 1 cm nodule left midlung zone. Questionable 1 .5 cm nodule right upper lobe CONCLUSION: Faint nodular densities overlying each of the lungs. Noncontrast chest CT is recommended. Somewhat na rrowed trachea. Myron Yuan MD on October 31, 2016 at 23:10 Board Certified Radiologist. This report was verified electronically.
--- NOTE | 2016-10-31 23:13 | EKG ---
Date Performed: 10/31/2016 Time Performed: 16:45:55 PTAGE: 66 years EKG: Sinus rhythm POSSIBLE RIGHT VENTRICULAR CONDUCTION DELAY BORDERLINE ECG PREVIOUS TRACING : 07/25/2016 08.56 Compared to prior tracing no significant change DOCTOR: Gabo Jeong Interpretating Date/Time 10/31/2016 23:12:33
[2016-11-01] VITALS (9 sets, daily range): BP systolic 84–119; BP diastolic 49–74; PULSE 58–80; RESP 16–18; TEMP 96.8–98.4; O2SAT 93–100
[2016-11-01] MEDS: SODIUM CHLOR 0.9% 1000 ML INJ 1,000 ML IV SCH ×2 (06:21→16:24)
[2016-11-01 06:26] LABS: ALKALINE PHOSPHATASE 81 U/L (45-117); ALT (GPT) 11 U/L (12-78); ANION GAP 8 MEQ/L (5-15); AST (GOT) 9 U/L (15-37); BICARBONATE 27.9 MEQ/L (21.0-32.0); BLOOD UREA NITROGEN 13 MG/DL (7-18); CHLORIDE 102 MEQ/L (98-107); GLOMERULAR FILTRATION RATE 116 ML/MIN (>89); POTASSIUM 3.5 MEQ/L (3.5-5.1); SODIUM (NA) 138 MEQ/L (136-145); TOTAL BILIRUBIN ADULT 0.4 MG/DL (0.2-1.0)
[2016-11-01] MEDS: SODIUM CHLORIDE 0.9% FLUSH 10 ML FLUSH IV FLUSH SCH ×2 (09:00→21:48)
[2016-11-01] MEDS: PANTOPRAZOLE SOD 20 MG DELAYED RELEASE TAB PO SCH (09:03)
[2016-11-01] MEDS: FLUCONAZOLE 100 MG TAB PO SCH (09:03)
[2016-11-01] MEDS: DEXAMETHASONE 4 MG TAB PO SCH (09:03)
[2016-11-01] MEDS: MORPHINE SULFATE 30 MG CONTROLLED RELEASE TAB PO SCH ×2 (09:03→21:50)
--- NOTE | 2016-11-01 13:13 | HHI.PR ---
Subjective Remarks Follow-up for altered mental status Patient is AAO 2. He is able to give me his full name and location. He wasn' t able to give me the date but he is able to answer all my questions appropriately. Patient has no complaints and asking to go home. When I asked if he was using his PEG he stated that he stated taking ensure does not need to use his PEG tube. Patient denies any pain, shortness of breathing, chest pain or any palpitation. He stated that sometimes he does have confusions at times. At the moment he denies any confusion. Patient stated that he was due for radiation today at 9 AM. Objective Vitals Vital Signs Date Time Temp Pulse Resp B/P Pulse Ox O2 Delivery O2 Flow Rate FiO2 11/01/16 11:35 97.8 681 17 118/66 99 Nasal Cannula 2 11/01/16 10:03 17 11/01/16 10:02 97.8 70 18 119/66 99 Nasal Cannula 2 11/01/16 07:30 18 97 Nasal Cannula 2 11/01/16 07:30 76 18 97 Nasal Cannula 2 11/01/16 07:30 97.8 74 18 111/67 98 Nasal Cannula 2 11/01/16 04:00 70 18 97/56 93 11/01/16 02:04 80 16 93/50 97 Room Air 11/01/16 01:00 68 16 84/49 100 Room Air 10/31/16 23:00 84 16 91/53 95 Room Air 10/31/16 22:00 69 16 98/54 98 Room Air 10/31/16 21:00 72 16 105/56 96 Room Air 10/31/16 20:00 72 16 90/53 98 Room Air 10/31/16 19:00 83 16 118/58 98 Room Air 10/31/16 16:42 98 Room Air 10/31/16 16:24 86 16 91/54 93 Room Air Result Diagram: 10/31/16 1710 11/01/16 0505 Objective Remarks GENERAL: This is a cachectic, chronically ill-appearing elderly male patient, in no apparent distress. SKIN: No rashes, ecchymoses or lesions. Cool and dry. HEAD: Atraumatic. Normocephalic. No temporal or scalp tenderness. EYES: No scleral icterus. No injection or drainage. ENT: Nose without bleeding, purulent drainage or septal hematoma. NECK: Trachea midline. No JVD . CARDIOVASCULAR: Regular rate and rhythm without murmurs, gallops, or rubs. RESPIRATORY: Bilateral inspiratory and expiratory rhonchi, respirations unlabored. GASTROINTESTINAL: Abdomen soft, non-tender, nondistended. Bowel sounds hypoactive No guarding. MUSCULOSKELETAL: Extremities without clubbing, cyanosis, or edema. No calf tenderness. NEUROLOGICAL: Awake and alert. Normal speech. Medications and IVs Current Medications Sodium Chloride 1,000 ml @ 1,000 mls/hr Q1H IV Last administered on 10/31/16 17:07; Start 10/31/16 at 16:32; Stop 10/31/16 at 17:31; Status DC Sodium Chloride (NS 1000 ml Inj) 1,000 ml @ 1,000 mls/hr Q1H IV Last administered on 10/31/16 18:15; Start 10/31/16 at 18:01; Stop 10/31/16 at 19:00 ; Status DC Potassium Bicarb/ Potassium Chloride 25 meq 25 meq ONCE ONCE PO Last administered on 10/31/16 18:27; Start 10/31/16 at 18:15; Stop 10/31/16 at 18:16 ; Status DC Sodium Chloride (NS 1000 ml Inj) 1,000 ml @ 100 mls/hr Q10H IV Last administered on 11/01/16 06:21; Start 10/31/16 at 18:12 Sodium Chloride (NS Flush) 2 ml UNSCH PRN IV FLUSH FLUSH AFTER USING IV ACCESS ; Start 10/31/16 at 18:15 Sodium Chloride (NS Flush) 2 ml BID IV FLUSH ; Start 10/31/16 at 21:00 Acetaminophen (Tylenol) 650 mg Q4H PRN PO TEMP > 100.4; Start 10/31/16 at 18:15 Ondansetron HCl (Zofran Inj) 4 mg Q6H PRN IVP NAUSEA OR VOMITING; Start at 18:15 Magnesium Hydroxide (Milk Of Magnesia Liq) 30 ml Q12H PRN PO CONSTIPATION; Start 10/31/16 at 18:15 Temazepam (Restoril) 15 mg HS PRN PO INSOMNIA Last administered on 10/31/16 22 :58; Start 10/31/16 at 18:15 Enoxaparin Sodium (Lovenox Inj) 40 mg Q24H SQ ; Start 10/31/16 at 18:15; Stop at 18:36; Status DC Alprazolam (Xanax) 0.25 mg Q4H PRN PO ANXIETY; Start 10/31/16 at 22:30 Dexamethasone (Decadron) 2 mg DAILY PO Last administered on 11/01/16 09:03; Start 11/01/16 at 09:00 Fluconazole (Diflucan) 100 mg DAILY PO Last administered on 11/01/16 09:03; Start 11/01/16 at 09:00 Hydromorphone HCl (Dilaudid) 2 mg Q6H PRN PO PAIN Last administered on 22:58; Start 10/31/16 at 22:30 Morphine Sulfate (Oramorph Sr) 30 mg BID PO Last administered on 11/01/16 09: 03; Start 11/01/16 at 09:00 Pantoprazole Sodium (Protonix) 20 mg DAILY PO Last administered on 11/01/16 09 :03; Start 11/01/16 at 09:00 Pneumococcal Polyvalent Vaccine (Pneumovax-23 Inj) 25 mcg ONCE ONCE IM ; Start 11/02/16 at 10:00; Stop 11/02/16 at 10:01 A/P Problem List: (1) Squamous cell carcinoma of head and neck ICD Code: C76.0 Status: Acute (2) Altered mental status ICD Code: R41.82 Status: Acute (3) Dehydration ICD Code: E86.0 Status: Acute (4) Hypokalemia ICD Code: E87.6 Status: Acute (5) Anemia ICD Code: D64.9 Status: Acute (6) Hyponatremia ICD Code: E87.1 Status: Acute (7) Acute renal insufficiency ICD Code: N28.9 Status: Acute (8) Thrombocytopenia ICD Code: D69.6 Status: Acute (9) Protein calorie malnutrition ICD Code: E46 Status: Chronic Assessment and Plan Mr. 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 The patient is being treated by Dr. Sparkle Gilbert oncologist and Dr. Dominic Guthrie radiation oncologist. He has no primary care physician. A PEG tube was placed 3 weeks ago but this has not been used despite patients inability to eat or drink for the past few days. Squamous cell carcinoma of the left neck with unknown primary - Pending recommendations from medical and radiation oncology - continue home analgesic regimen Altered mental status -Resolved quickly. Most likely due to dehydration since patient improved with IV fluids. - Head CT with no acute findings; stable hypodensity in right frontal region noted Hypokalemia -Replenish as needed. Mild acute renal insufficiency likely secondary to mild dehydration - BUN 19, creatinine 1.05, estimated GFR 70 - previously bun 15, creatinine 0.83 , estimated GFR 92 on 10/23/2016 - Resolved with IV fluids. Anemia - suspect secondary to chemotherapy - Hemoglobin 8.9 in hematocrit 24.8; was 10.6 and 29.5 on 10/23/2016 -No signs of active bleeding. Patient's oncologist already consulted. Thrombocytopenia - Platelet count decreased to 37,000 from 142,000. - No sign of bleeding. Continue to monitor. -Patient oncologist already consulted. Hyponatremia, appears possibly chronic when compared to prior labs though results only available since October 03, 2016 - Sodium 130 but is now 138. - Resolved after given IV fluids. Protein calorie malnutrition - Albumin 2.5 - consult cardiopulmonary supervisor for assistance with tube feeding recommendations DVT prophylaxis - SCDs Discharge Planning Patient is no longer altered and is to be discharged home. Pending recommendations from patient's oncologist due to thrombocytopenia and anemia before considering discharge. Problem Qualifiers (1) Altered mental status: Qualified Code: R41.82 - Altered mental status, unspecified altered mental status type Michelle Johnston MD Nov 01, 2016 13:13
[2016-11-01 18:48] LABS: BLOOD, URINE NEG (NEG); COMMENT (UR) CULT NOT INDICATED; CULTURE IF INDICATED CULT NOT INDICATED; GLUCOSE,URINE NEG (NEG); HYALINE CAST, URINE 2 /lpf (RARE); KETONE, URINE 10 mg/dL (NEG); NITRITE,URINE NEG (NEG); URINE COLOR YELLOW (YELLW/STRAW)
--- NOTE | 2016-11-01 18:53 | RADRPT ---
EXAM DATE/TIME: 11/01/2016 18:08 [facility] COMPARISON: CHEST SINGLE AP, October 31, 2016, 23:04. INDICATIONS : Neck cancer. Abnormal chest x-ray. RADIATION DOSE: 3.36 CTDIvol (mGy) MEDICAL HISTORY : Metastatic disease. Throat cancer SURGICAL HISTORY : Port placement ENCOUNTER: Initial ACUITY: 1 day PAIN SCALE: 0/10 LOCATION: Bilateral chest TECHNIQUE: Volumetric scanning of the chest was performed. Using automated exposure control and adjustment of t he mA and/or kV according to patient size, radiation dose was kept as low as reasonably achievable to obtain optimal diagnostic quality images. FINDINGS: LUNGS: There are multiple areas of nodular density throughout the lungs. Within the posterior aspects of the right lung apex this measures 2.6 x 1.6 cm, within the posterior aspects of the posterior segment of the right upper lobe this measures 2.1 x 1.6 cm, within the central aspects of the right upper lobe 1.2 x 0.8 cm, and the only cavitary nodule within the posterior aspect of the left upper lobe measuri ng 13 x 11 mm. A few tiny nodular densities are seen scattered throughout the remaining aspects of th e lungs. Mild chronic interstitial changes seen within the subpleural aspects of both upper lobes. PLEURAE: Small bilateral pleural effusions. MEDIASTINUM: There is a left neck mass measuring 5.9 x 5.0 cm. Tiny mediastinal lymph nodes observed. No bulky olvin nopathy. The heart is normal in size. A tiny pericardial effusion. Coronary artery and aortic atheros clerotic calcifications. AXILLAE: Within normal limits. No lymphadenopathy. MUSCULOSKELETAL: Within normal limits for patient age. MISCELLANEOUS: A right sided Port-A-Cath. A gastrostomy tube. CONCLUSION: 1. Multiple areas of nodularity scattered throughout both lungs. Within the left upper lobe there is a cavitary lesion as well. Differential diagnostic considerations would include metastatic disease ve rsus an infectious process. I tend to favor the former. 2. 5.9 x 5.0 cm left neck mass partially seen. 3. Small bilateral pleural effusions. Hugo Brandon Jr., MD on November 01, 2016 at 18:45 Board Certified Radiologist. This report was verified electronically.
[2016-11-02 00:11] VITALS: BP 103/52; PULSE 82; RESP 18; TEMP 98.5; O2SAT 100
[2016-11-02] MEDS ORDERED: LEVOFLOXACIN 500 MG PREMIX INJ 100 ML IV SCH (01:00)
[2016-11-02] MEDS: SODIUM CHLOR 0.9% 1000 ML INJ 1,000 ML IV SCH (01:09)
[2016-11-02 04:02] VITALS: BP 105/55; PULSE 66; RESP 20; TEMP 97.8; O2SAT 98
[2016-11-02 08:07] VITALS: BP 96/54; PULSE 83; RESP 18; TEMP 96.6; O2SAT 100
[2016-11-02 08:10] LABS: HEMATOCRIT 23.8 % (39.0-51.0); MEAN CELL VOLUME 98.6 FL (80.0-100.0); MEAN CORPUSCULAR HEMOGLOBIN 33.4 PG (27.0-34.0); MEAN CORPUSCULAR HGB CONC 33.9 % (32.0-36.0); PLATELET COUNT 27 TH/MM3 (150-450); RED BLOOD COUNT 2.42 MIL/MM3 (4.50-5.90); RED CELL DISTRIBUTION WIDTH 14.8 % (11.6-17.2); WHITE BLOOD COUNT 3.2 TH/MM3 (4.0-11.0)
[2016-11-02 08:18] LABS: REVIEW FLAG FINAL
[2016-11-02 08:29] LABS: BICARBONATE 24.2 MEQ/L (21.0-32.0); POTASSIUM 3.7 MEQ/L (3.5-5.1)
[2016-11-02] MEDS ORDERED: DEXTROSE 50% IN WATER 50 ML VIAL(D50) IV PUSH PRN (08:30)
[2016-11-02] MEDS ORDERED: GLUCAGON 1 MG/ML VIAL OTHER PRN (08:30)
--- NOTE | 2016-11-02 08:39 | MB ---
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 This is a TX, N2, MX cancer. The patient is being admitted with nausea, vomiting, dehydration, failure to thrive. CHIEF COMPLAINT Nausea, poor oral intake. HISTORY OF PRESENT ILLNESS Mr. 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 He developed left neck mass in June 2016. Biopsy confirmed squamous cell carcinoma with extensive necrosis. The patient is currently getting concurrent chemotherapy and radiation treatments. He is getting weekly carboplatin. The patient was sent to the emergency room with lethargy, failure to thrive/poor oral intake, dehydration, nausea, vomiting and altered mentation. The patient was admitted to the hospital. On admission, his hemoglobin was 8.9 and platelet count was 37,000. IV antiemetics have been given. The patient has been getting IV hydration. He is also on oral steroids. He had a CT of the head which did not show any acute findings. The patient has somewhat improved today with improvement in his alertness level. REVIEW OF SYSTEMS A comprehensive 14-point review of systems was completed and it is negative except as described in the HPI. PAST MEDICAL HISTORY 1. History of squamous cell carcinoma of the head and neck. 2. COPD 3. Tobacco abuse 4. Alcohol abuse 5. Gastroesophageal reflux disease PAST SURGICAL HISTORY 1. PEG placement 2. Left neck tumor biopsy MEDICATIONS Home medications include: 1. Alprazolam 0.25 mg tablet p.o. q4-6h p.r.n. 2. Fluconazole 100 mg tablet p.o. daily 3. Omeprazole 20 mg one tablet p.o. daily 4. Morphine sulfate 30 mg p.o. b.i.d. 5. Dexamethasone 2 mg p.o. daily 6. Dilaudid 2 mg tablet p.o. q6h p.r.n. ALLERGIES NO KNOWN DRUG ALLERGIES. FAMILY HISTORY Reviewed, noncontributory to this admission. SOCIAL HISTORY He has more than 50 pack-years of smoking history and continues to smoke. He has a history of alcohol abuse. No history of drug abuse. PHYSICAL FINDINGS VITAL SIGNS: Blood pressure is 114/68, pulse is in the 70s, temperature is 98, respiratory rate is 18, O2 sats are 97% on room air. GENERAL: A chronically ill-appearing male cachectic in no apparent distress. HEENT: Pupils are equal, round, reactive to light. EOMI. No oral thrush. No oral lesions. NECK: Supple. No JVD, no bruits. No lymphadenopathy. CHEST: Bilateral scattered wheezes. ABDOMEN: Soft, nontender, nondistended. Bowel sounds are decreased. EXTREMITIES: Without any edema, erythema or cyanosis. SKIN: Without any petechiae, lesion or bruises. NEUROLOGIC: No focal deficits. PSYCHIATRIC: Mood and affect is appropriate. LABORATORY DATA WBCs 4.5, hemoglobin 8.9, platelet count 37,000. Sodium is 138, potassium 3.5, chloride 102, CO2 27.9, anion gap is 8, BUN is 13, creatinine is 0.68, GFR is 116, calcium is 7.8, total bilirubin is 0.4, AST is 9, ALT is 11, alk phos is 81, total protein 5.7, albumin is 2.1. IMAGING Reviewed in the EMR, chest x-ray shows multiple areas of nodularity scattered throughout the lung. Within the left upper lung, there is a cavitary lesion. There is concern for an infection. Neck mass is seen which is 5.9 x 5 cm. 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 He is currently undergoing concurrent chemotherapy and radiation treatments. He presents to the emergency department with lethargy, failure to thrive, poor oral intake, nausea, vomiting and dehydration. 1. Nausea and vomiting secondary to chemotherapy. Continue IV Antiemetics. Continue IV hydration. 2. Lethargy. Chest x-ray is concerning for either infectious process or metastatic disease. We will proceed with getting a CT of the chest with contrast. We will start this patient on IV antibiotics, obtain blood cultures. He has been on steroids which will suppress any underlying fevers. 3. Anemia which is secondary to chemotherapy. He is symptomatic with fatigue and lethargy. We will transfuse him one unit of packed red blood cells. 4. Thrombocytopenia secondary to chemotherapy, platelet count is above 30,000. There is no evidence of bleeding. We will Continue to monitor. 5. Poor oral intake, malnutrition with albumin of 2.1 advanced Tube feeds, dietary consult. 6. Squamous cell carcinoma of the head and neck. Further treatment to be given outpatient. Thank you for allowing me to participate in the care of this patient. I will continue to follow this patient along. MD GLENN Rizo/NISHANT /12:04 AM /8:15 AM
[2016-11-02] MEDS: PANTOPRAZOLE SOD 20 MG DELAYED RELEASE TAB PO SCH (09:00)
[2016-11-02] MEDS: FLUCONAZOLE 100 MG TAB PO SCH (09:00)
[2016-11-02] MEDS: MORPHINE SULFATE 30 MG CONTROLLED RELEASE TAB PO SCH ×2 (09:00→21:14)
[2016-11-02] MEDS: DEXAMETHASONE 4 MG TAB PO SCH (09:00)
[2016-11-02] MEDS: D5-1/2 NS + KCL 20 MEQ INJ 1,000 ML IV SCH (09:20)
[2016-11-02] MEDS: SODIUM CHLORIDE 0.9% FLUSH 10 ML FLUSH IV FLUSH SCH ×2 (09:20→21:00)
--- NOTE | 2016-11-02 09:50 | HHI.PR ---
Subjective Remarks Follow-up for AMS, SCC, lung lesions. The patient is currently oriented to place, month, year, and self-pay. He does not recall feeling confused when he came to the hospital, but states his told him he was. He feels well this time and would like to go home. He doesn't feel like he has any problems swallowing. He denies any pain. He denies any chest pain or shortness of breath. He has a feeding tube, but has not started using it yet. Objective Vitals Vital Signs Date Time Temp Pulse Resp B/P Pulse Ox O2 Delivery O2 Flow Rate FiO2 11/02/16 08:07 96.6 83 18 96/54 100 11/02/16 04:02 97.8 66 20 105/55 98 11/02/16 03:16 Nasal Cannula 3.00 11/02/16 00:11 98.5 82 18 103/52 100 11/01/16 23:23 18 11/01/16 19:44 96.8 76 18 101/53 96 11/01/16 17:15 98.4 58 16 100/74 95 11/01/16 17:14 98.0 78 18 114/68 97 11/01/16 11:35 97.8 681 17 118/66 99 Nasal Cannula 2 11/01/16 10:02 97.8 70 18 119/66 99 Nasal Cannula 2 I/O 11/01/16 11/01/16 11/01/16 11/02/16 11/02/16 11/02/16 07:00 15:00 23:00 07:00 15:00 23:00 Intake Total 1340 ml Output Total 600 ml 125 ml Balance -600 ml 1340 ml -125 ml Intake Oral 240 ml IV Total 1100 ml Output Urine Total 600 ml 125 ml Result Diagram: 11/02/16 0702 11/02/16 0702 Imaging Last Impressions Chest CT 11/01/16 0000 Signed Impressions: Service Date/Time: Tuesday, November 01, 2016 18:08 - CONCLUSION: 1. Multiple areas of nodularity scattered throughout both lungs. Within the left upper lobe there is a cavitary lesion as well. Differential diagnostic considerations would include metastatic disease versus an infectious process. I tend to favor the former. 2. 5.9 x 5.0 cm left neck mass partially seen. 3. Small bilateral pleural effusions. Hugo Brandon Jr., MD Head CT 10/31/16 0000 Signed Impressions: Service Date/Time: Monday, October 31, 2016 17:20 - CONCLUSION: No acute findings. The patient has had radiation therapy to the brain and there is a stable hypodensity in the right frontal region. Hugo Goodman MD Chest X-Ray 10/31/16 0000 Signed Impressions: Service Date/Time: Monday, October 31, 2016 23:04 - CONCLUSION: Faint nodular densities overlying each of the lungs. Noncontrast chest CT is recommended. Somewhat narrowed trachea. Myron Yuan MD Objective Remarks GENERAL: Well-developed fair-nourished. In no acute distress. SKIN: Warm and dry. No lesions noted. HEENT: Normocephalic. Pupils equal and round. Mucous membranes pink and moist. Left neck swelling. CARDIOVASCULAR: Regular rate and rhythm. No murmur appreciated. RESPIRATORY: No accessory muscle use. Clear to auscultation. Breath sounds equal bilaterally. GASTROINTESTINAL: Abdomen soft, non-tender, nondistended. Bowel sounds x4. PEG tube in place. MUSCULOSKELETAL: No obvious deformities. No clubbing or cyanosis. No edema. NEUROLOGICAL: Awake and alert. No focal neurological deficits. Moves upper and lower extremities spontaneously. Normal speech. PSYCHIATRIC: Appropriate mood and affect; insight and judgment normal. A/P Problem List: (1) Squamous cell carcinoma of head and neck ICD Code: C76.0 Status: Acute (2) Altered mental status ICD Code: R41.82 Status: Acute (3) Dehydration ICD Code: E86.0 Status: Resolved (4) Hypokalemia ICD Code: E87.6 Status: Resolved (5) Anemia ICD Code: D64.9 Status: Acute (6) Hyponatremia ICD Code: E87.1 Status: Resolved (7) Acute renal insufficiency ICD Code: N28.9 Status: Resolved (8) Thrombocytopenia ICD Code: D69.6 Status: Acute (9) Protein calorie malnutrition ICD Code: E46 Status: Chronic Assessment and Plan Mr. 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 The patient is being treated by Dr. Jorge Gilbert oncologist and Dr. Dominic Guthrie radiation oncologist. He has no primary care physician. A PEG tube was placed 3 weeks ago but this has not been used despite patients inability to eat or drink for the past few days. Squamous cell carcinoma of the left neck with unknown primary - Consulted medical and radiation oncology - continue home analgesic regimen - Speech therapy consulted for swallow evaluation - Maintenance fluid with D5 and hypoglycemia protocol while nothing by mouth pending swallow eval Altered mental status Head CT with no acute findings; stable hypodensity in right frontal region noted - Improved. Most likely due to dehydration since patient improved with IV fluids. Pulmonary lesions Initial chest x-ray with a nodular densities overlying both lungs with chest CT recommended. Chest CT showed multiple areas of nodularity scattered through both lungs with a cavitary lesion in the left upper lobe as well; infection versus metastatic disease in the differential. - Continue on IV Levaquin, ID is consulted - Pulmonary consulted Hypokalemia -Replaced. Continue maintenance IVF with potassium. Mild AICHA to dehydration Creatinine 1.05 at admission, improved to 0.54 with IVF - Resolved with IV fluids. Anemia, normocytic - suspect secondary to chemotherapy. Symptomatic with fatigue. Hemoglobin 8.9 was 10.6 on 10/23/2016. - No signs of active bleeding. - Hemoglobin decreased to 8.1, possibly dilutional with IVF - Patient's oncologist already consulted, ordered transfusion 1 unit PRBC. Thrombocytopenia - Platelet count decreased to 37,27 from 142,000. - No sign of bleeding. Continue to monitor. - Patient's oncologist consulted. Hyponatremia - Sodium 130 improved to 138 with IVF. Moderate protein calorie malnutrition Albumin 2.5. Weight 42 kg. - consulted straight edger for assistance with tube feeding recommendations DVT prophylaxis - SCDs Discharge Planning With hypotension, hypoglycemia, confusion, pulmonary infection, will admit to inpatient for further treatment. Problem Qualifiers (1) Altered mental status: Qualified Code: R41.82 - Altered mental status, unspecified altered mental status type Clinton Guardado Nov 02, 2016 09:50
[2016-11-02] MEDS ORDERED: PNEUMOCOCCAL POLYVALENT INJ 25 MCG/0.5 ML SYR IM ONE (10:00)
--- NOTE | 2016-11-02 11:25 | RADRPT ---
EXAM DATE/TIME: 11/02/2016 00:00 [facility] COMPARISON: No previous studies available for comparison. INDICATIONS : Dysphagia, history of throat cancer with radiation therapy and chemo FLUORO TIME: 0.7 minutes IMAGE COUNT: 0 CONTRAST: Dose as prescribed by speech pathologist. MEDICAL HISTORY : throat ca SURGICAL HISTORY : infusaport ENCOUNTER: Initial ACUITY: 1 week PAIN SCORE: 0/10 LOCATION: Bilateral throat FINDINGS: A modified barium swallow was performed with speech pathology. Patient was given a variety of liquids to swallow. For a full detailed report, see report by the speech pathologist. CONCLUSION: Please refer to speech pathology report for complete discussion. Ambrosio Kuo MD on November 02, 2016 at 11:24 Board Certified Radiologist. This report was verified electronically.
[2016-11-02 13:22] VITALS: BP 91/52; PULSE 74; RESP 18; TEMP 96.6; O2SAT 99
--- NOTE | 2016-11-02 13:29 | MB ---
cc: Oracio COREAS M.D. DATE OF CONSULTATION: 11/02/2016 HISTORY OF PRESENT ILLNESS Mr. Long is a 66-year-old white male with a diagnosis of head and neck cancer diagnosed in June. He presented with a left neck mass squamous cell carcinoma, actually unclear as to the primary. He has been a heavy smoker and drinker all of his adult life, although he says he quit drinking 6 months ago and stopped smoking several weeks ago. He presented yesterday because his was concerned about confusion. He was re-hydrated and says he feels fine today and is asking to go home. His admission chest x-ray revealed some faint nodular densities so a CT was done and he has several nodular densities in the lung with a small cavity and a left mid lung lesion suspicious for either infection or metastatic malignancy. The patient has had some swallowing difficulty. He had a PEG tube placed but has not started using that yet. He denies known reflux with aspiration although that is certainly a possibility. PAST MEDICAL HISTORY Otherwise unremarkable. Not known to have COPD, although that is suspected. He had some type of tumor resected in the neck 9 years ago. He is followed here closely by Dr. Gilbert in oncology and Dr. Guthrie in radiation therapy. He has already begun therapy for this cancer in the neck. ALLERGIES None known. MEDICATIONS Reviewed and recorded in the EMR. REVIEW OF SYSTEMS He denies significant cough. He has had no hemoptysis. No purulent sputum. He has had no chest pain. He denies shortness of breath and uses no inhalers at home. No chronic edema. No pain. PHYSICAL EXAMINATION VITAL SIGNS: 97 degrees, 103/52, respirations 18, pulse is 70, O2 sat 100% on 2-3 liters. HEENT: Sclerae pale, anicteric. NECK: Large mass in the left neck with some scaling, probably due to radiation. CHEST: Chest is actually clear. No congestion or wheezing. HEART: Regular heart rhythm. No harsh murmur. EXTREMITIES: No edema. No clubbing or cyanosis. ASSESSMENT Mr. Long presented yesterday with some confusion according to his . He is actually quite clear today. From a pulmonary standpoint he is actually stable, although I suspect he does have metastatic disease to the chest and is followed carefully by radiation therapy and oncology. That can be followed up as an outpatient. Currently thrombocytopenic, would not be a candidate for a lung biopsy at this point in any event. It is also possible that he has had some intermittent aspiration. I would suggest giving him a course of antibiotics, maybe 10 days of Augmentin and I am sure they will do a follow-up scan within the next several weeks through oncology. If I can be of further assistance, I would be happy to see him back. R. MD ROSSANA Mckeon/KENDELL /1:09 PM /1:20 PM
[2016-11-02] MEDS: HYDROmorphone HCL 2 MG TAB PO PRN (14:34)
[2016-11-02 15:46] VITALS: BP 96/53; PULSE 81; RESP 18; TEMP 98; O2SAT 100
--- NOTE | 2016-11-02 17:11 | HHI.PR ---
Addendum to Inpatient Note Addendum Reason: Additional Documentation Additional Information Briefly discussed case with : likely aspiration pneumonia or mets to lung. Continue Augmentin for now. d/w unable to see patient today will see patient in am. Alyssa Ahumada MD Nov 02, 2016 17:10
[2016-11-02 20:00] VITALS: BP 97/54; PULSE 79; RESP 16; TEMP 96.7; O2SAT 100
[2016-11-02] MEDS: AMOXICILLIN/CLAVULANATE K 875 MG TAB PO SCH (21:14)
--- NOTE | 2016-11-02 22:59 | PD.ONC.PN ---
Subjective Subjective Remarks sitting up and being fed soft food weak no fever/cough/congestion overnight had barium swallow today study today d/w rn Objective Data Date Time Temp Pulse Resp B/P Pulse Ox O2 Delivery O2 Flow Rate FiO2 11/02/16 20:00 96.7 79 16 97/54 100 11/02/16 15:46 98.0 81 18 96/53 100 11/02/16 13:22 96.6 74 18 91/52 99 11/02/16 08:07 96.6 83 18 96/54 100 11/02/16 04:02 97.8 66 20 105/55 98 11/02/16 03:16 Nasal Cannula 3.00 11/02/16 00:11 98.5 82 18 103/52 100 11/01/16 23:23 18 11/02/16 11/02/16 11/02/16 07:00 15:00 23:00 Intake Total 1340 ml 529 ml Output Total 125 ml Balance 1340 ml -125 ml 529 ml Result Diagram: 11/02/16 0702 11/02/16 0702 Laboratory Results Laboratory Tests Test 11/02/16 11/02/16 01:40 07:02 Procalcitonin LESS THAN 0.05 ng/mL White Blood Count 3.2 TH/MM3 Red Blood Count 2.42 MIL/MM3 Hemoglobin 8.1 GM/DL Hematocrit 23.8 % Mean Corpuscular Volume 98.6 FL Mean Corpuscular Hemoglobin 33.4 PG Mean Corpuscular Hemoglobin 33.9 % Concent Red Cell Distribution Width 14.8 % Platelet Count 27 TH/MM3 Mean Platelet Volume 8.5 FL Sodium Level 138 MEQ/L Potassium Level 3.7 MEQ/L Chloride Level 104 MEQ/L Carbon Dioxide Level 24.2 MEQ/L Anion Gap 10 MEQ/L Blood Urea Nitrogen 12 MG/DL Creatinine 0.54 MG/DL Estimat Glomerular Filtration 152 ML/MIN Rate Random Glucose 57 MG/DL Calcium Level 7.8 MG/DL Culture Results Microbiology Date/Time Procedure Status Source Growth 11/02/16 01:35 Aerobic Blood Culture Received Blood Line Pending 11/02/16 01:35 Anaerobic Blood Culture Received Blood Line Pending 11/02/16 01:40 Aerobic Blood Culture Received Blood Line Pending 11/02/16 01:40 Anaerobic Blood Culture Received Blood Line Pending Imaging Studies Last 24 hours Impressions Modified Barium Swallow 11/02/16 0000 Signed Impressions: Service Date/Time: October 00:00 - CONCLUSION: Please refer to speech pathology report for complete discussion. Ambrosio Kuo MD Administered Medications Medications (Trade) Dose Ordered Sig/[place] Route PRN Reason Start Time Stop Time Status Last Admin Dose Admin Temazepam (Restoril) 15 mg HS PRN PO INSOMNIA 10/31/16 18:15 10/31/16 22:58 Dexamethasone (Decadron) 2 mg DAILY PO 11/01/16 09:00 11/01/16 09:03 Fluconazole (Diflucan) 100 mg DAILY PO 11/01/16 09:00 11/01/16 09:03 Hydromorphone HCl (Dilaudid) 2 mg Q6H PRN PO PAIN 10/31/16 22:30 11/02/16 14:34 Morphine Sulfate (Oramorph Sr) 30 mg BID PO 11/01/16 09:00 11/02/16 21:14 Pantoprazole Sodium (Protonix) 20 mg DAILY PO 11/01/16 09:00 11/01/16 09:03 Dextrose 25 ml 25 ml UNSCH PRN IV PUSH HYPOGLYCEMIA-SEE COMMENTS 11/02/16 08:30 11/02/16 08:46 Potassium Chloride/Dextrose/ Sod Cl (D5-1/2 NS + KCl 20 Meq Inj) 1,000 ml @ 50 mls/hr Q20H IV 11/02/16 10:00 11/02/16 09:20 Amoxicillin/ Clavulanate Potassium (Augmentin) 875 mg Q12HR PO 11/02/16 21:00 11/02/16 21:14 Objective Remarks GENERAL: ill apearing, cachectic. SKIN: Warm and dry. NECK: Supple, trachea midline. No JVD or lymphadenopathy. LYMPHATIC: No adenopathy. CARDIOVASCULAR: Regular rate and rhythm without murmurs. RESPIRATORY: Breath sounds equal bilaterally. No accessory muscle use. GASTROINTESTINAL: Abdomen soft, non-tender, nondistended. EXTREMITIES: No cyanosis, or edema. . 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 He is currently undergoing concurrent chemotherapy and radiation treatments. He presents to the emergency department with lethargy, failure to thrive, poor oral intake, nausea, vomiting and dehydration. 1. Nodular lung lesions difficult to tell whether these are metastatic lesions- - patient was being treated with concurrent chemotherapy and radiation for curative intent for his head and neck cancer - will discuss with Dr. Cuevas for possible bronchoscopy and cytology to asses - PET ct scan outpatient - Treat as pneumonia at this time per pulm and ID 2. Nausea and vomiting secondary to chemotherapy. Continue IV Antiemetics. Continue IV hydration. 2. Lethargy. combination of chemotherapy effect and disease//? pneumonia 3. Anemia which is secondary to chemotherapy. symptomatic. Transfuse 1 unit of pRBC. premedicate with Tylenol and Benadryl 4. Thrombocytopenia secondary to chemotherapy. There is no evidence of bleeding. Can be transfused platelets to bring platelet count above 50,00 for bronchoscopy 5. Poor oral intake, malnutrition with albumin of 2.1 advanced barium swallo and speech assessment done..puree diet with thin liquids 6. Squamous cell carcinoma of the head and neck. Further treatment to be given outpatient. Problem Qualifiers (1) Altered mental status: Qualified Code: R41.82 - Altered mental status, unspecified altered mental status type Jorge Gilbert MD Nov 02, 2016 22:59
[2016-11-03] VITALS (9 sets, daily range): BP systolic 105–119; BP diastolic 51–60; PULSE 69–93; RESP 16–18; TEMP 96.1–98.3; O2SAT 95–100
[2016-11-03] MEDS ORDERED: diphenhydrAMINE HCL 25 MG CAP PO SCH ×2 (00:45→03:45)
[2016-11-03] MEDS ORDERED: ACETAMINOPHEN 325 MG TAB PO SCH ×2 (00:45→04:00)
[2016-11-03] MEDS ORDERED: ACETAMINOPHEN 325 MG TAB PO PRN (01:00)
[2016-11-03] MEDS ORDERED: diphenhydrAMINE HCL 25 MG CAP PO PRN (01:00)
[2016-11-03 02:18] LABS: AUTOMATED NEUTROPHIL # 1.9 TH/MM3 (1.8-7.7); BASOPHIL % 0.3 % (0.0-2.0); EOSINOPHIL % 0.6 % (0.0-4.0); HEMATOCRIT 21.7 % (39.0-51.0); LYMPH % 17.8 % (9.0-44.0); LYMPHOCYTE # 0.4 TH/MM3 (1.0-4.8); MEAN CELL VOLUME 97.2 FL (80.0-100.0); MEAN CORPUSCULAR HEMOGLOBIN 33.3 PG (27.0-34.0); MEAN CORPUSCULAR HGB CONC 34.2 % (32.0-36.0); MONO % 4.8 % (0.0-8.0); NEUT % 76.5 % (16.0-70.0); PLATELET COUNT 20 TH/MM3 (150-450); RED BLOOD COUNT 2.24 MIL/MM3 (4.50-5.90); RED CELL DISTRIBUTION WIDTH 14.7 % (11.6-17.2); WHITE BLOOD COUNT 2.5 TH/MM3 (4.0-11.0)
[2016-11-03 02:19] LABS: HEMO FLAGS AUTO DIFF
[2016-11-03 02:47] LABS: PLATELET ESTIMATE SMEAR RARE (NORMAL); PLATELET MORPHOLOGY NORMAL (NORMAL); SCAN/DIFF AUTO DIFF CONFIRMED
[2016-11-03] MEDS: D5-1/2 NS + KCL 20 MEQ INJ 1,000 ML IV SCH (03:42)
[2016-11-03 08:02] LABS: HEMATOCRIT 26.6 % (39.0-51.0)
[2016-11-03 08:04] LABS: REVIEW FLAG FINAL
--- NOTE | 2016-11-03 08:58 | PD.ID.CON ---
History of Present Illness Service ID Consult Requested By Dr.Awais Gilbert Reason for Consult Evaluation and Mment of Possible aspiration pneumonia, cavitation in IC pt Primary Care Physician Jorge Gilbert MD Diagnoses: History of Present Illness Mr. 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 The patient is being treated by Dr. Jorge Gilbert oncologist and Dr. Dominic Guthrie radiation oncologist. A PEG tube was placed 3 weeks ago but this has not been used despite patients inability to eat or drink for the past few days. This was placed as patient has lost weight upto 30 lbs per the healthcare financial analyst who lives with them. Patients also has advanced cancer and is seen at [facility]. Reportedly, patient has not been using the PEG tube. Per discussion with the healthcare financial analyst the patient has been coughing while eating and also has continued to drink heavily and smoke heavily. He has not been seen by a psychiatrist but demonstrates signs of depression and irritability, anxiety. started him on Xanax with not much relief. The patient undergoes chemotherapy using a port in right chest wall. He undergoes radiation therapy with 5 days of the week and undergoes chemotherapy (carboplatin per notes) on every Sunday (last chemotherapy 10/24/16). The patients healthcare financial analyst would like or member of palliative care team help address goals of therapy and provide support to the family of two both of whom have advanced cancer. The patient frequently denies symptoms that the family friend reports he has been having. The patient has not been eating well and has not slept for 2 days. Since 10/28/2016, the patient has not been able to eat or drink well at all. He has had some nausea with a few episodes of vomiting according to the family friend. The family friend also reports that he has had some diarrhea but she is unable to tell us if the stools or black or bloody. The patient had impacted stool last week that was treated with a fleets enema ordered by Dr. Guthrie - which produced an unknown amount of stool but did produce some stool. The patient's family believes that he has been having decreased urinary output. They have also noted that he has been having a gurgling in his throat at the time he drinks liquids by mouth. The family reports that the patient has been dyspneic but the patient denies this. Patient himself denies chest pain or shortness of breath. He reports significant pain at the left side of his neck where his cancer is located. ID is consulted for evaluation and Mment of Review of Systems ROS Limitations: Poor Historian Constitutional: COMPLAINS OF: Fatigue, Weight loss, Change in appetite, DENIES : Diaphoretic episodes, Fever, Weight gain, Chills, Dizziness, Night Sweats Endocrine: DENIES: Heat/cold intolerance, Polydipsia, Polyuria, Polyphagia Eyes: DENIES: Blurred vision, Diplopia, Eye inflammation, Eye pain, Vision loss , Photosensitivity, Double Vision Ears, nose, mouth, throat: COMPLAINS OF: Throat pain, Odynophagia, DENIES: Tinnitus, Hearing loss, Vertigo, Nasal discharge, Oral lesions, Hoarseness, Ear Pain, Running Nose, Epistaxis, Sinus Pain, Toothache Respiratory: COMPLAINS OF: Cough, DENIES: Apneas, Snoring, Wheezing, Hemoptysis, Sputum production, Shortness of breath Cardiovascular: DENIES: Chest pain, Palpitations, Syncope, Dyspnea on Exertion , PND, Lower Extremity Edema, Orthopnea, Claudication Gastrointestinal: COMPLAINS OF: Constipation, Diarrhea, Nausea, Vomiting, Anorexia, DENIES: Abdominal pain, Black stools, Bloody stools, Difficulty Swallowing Genitourinary: DENIES: Sexual dysfunction, Urinary frequency, Urinary incontinence, Urgency, Hematuria, Dysuria, Nocturia, Penile Discharge, Testicular Pain, Testicular Swelling Musculoskeletal: DENIES: Joint pain, Muscle aches, Stiffness, Joint Swelling, Back pain, Neck pain Integumentary: DENIES: Abnormal pigmentation, Nail changes, Pruritus, Rash Hematologic/lymphatic: DENIES: Bruising, Lymphadenopathy Immunologic/allergic: DENIES: Eczema, Urticaria Neurologic: DENIES: Abnormal gait, Headache, Localized weakness, Paresthesias, Seizures, Speech Problems, Tremor, Poor Balance Psychiatric: COMPLAINS OF: Anxiety, Depression, DENIES: Confusion, Mood changes, Hallucinations, Agitation, Suicidal Ideation, Homicidal Ideation, Delusions Except as stated in HPI: all other systems reviewed are Neg Past Family Social History Allergies: Coded Allergies: No Known Allergies (Unverified , 10/02/16) Past Medical History Squamous cell carcinoma left neck discovered in June 2016 Likely undiagnosed COPD Past Surgical History PEG tube Left neck tumor resection - 9 yrs ago Reported Medications Reported Meds & Active Scripts Active Reported Alprazolam 0.25 Mg Tab 0.25 Mg PO Q4H PRN Fluconazole 100 Mg Tab 100 Mg PO DAILY Omeprazole 20 Mg Tab 20 Mg PO DAILY Morphine Sulfate CR (Morphine Sulfate) 15 Mg Tab 30 Mg PO BID Dexamethasone 2 Mg Tab 2 Mg PO DAILY Hydromorphone (Hydromorphone HCl) 2 Mg Tab 2 Mg PO Q6H PRN Active Ordered Medications Current Medications Medications (Trade) Dose Ordered Sig/[place] Route Start Time Stop Time Status Last Admin (NS Flush) 2 ml UNSCH PRN IV FLUSH 10/31/16 18:15 (NS Flush) 2 ml BID IV FLUSH 10/31/16 21:00 (Tylenol) 650 mg Q4H PRN PO 10/31/16 18:15 (Zofran Inj) 4 mg Q6H PRN IVP 10/31/16 18:15 (Milk Of Magnjeannette Liq) 30 ml Q12H PRN PO 10/31/16 18:15 (Restoril) 15 mg HS PRN PO 10/31/16 18:15 10/31/16 22:58 (Xanax) 0.25 mg Q4H PRN PO 10/31/16 22:30 (Decadron) 2 mg DAILY PO 11/01/16 09:00 11/01/16 09:03 (Diflucan) 100 mg DAILY PO 11/01/16 09:00 11/01/16 09:03 (Dilaudid) 2 mg Q6H PRN PO 10/31/16 22:30 11/02/16 14:34 (Oramorph Sr) 30 mg BID PO 11/01/16 09:00 11/02/16 21:14 (Protonix) 20 mg DAILY PO 11/01/16 09:00 11/01/16 09:03 (D50w (Vial) Inj) 25 ml UNSCH PRN IV PUSH 11/02/16 08:30 11/02/16 08:46 Glucagon 1 mg 1 mg UNSCH PRN OTHER 11/02/16 08:30 (D5-1/2 NS + KCl 20 Meq Inj) 1,000 ml @ 50 mls/hr Q20H IV 11/02/16 10:00 11/03/16 03:42 (Augmentin) 875 mg Q12HR PO 11/02/16 21:00 11/02/16 21:14 Family History mom's family- heart attack cancer - in dad's family dad lung cancer Social History smoked a whole pack of cigarettes even before coming to hospital. smoked since 20 yrs or or so, about a pack a day date night caregiver reports patient drinks heavily. Patient denies alcohol. no drug abuse Physical Exam Vital Signs Vital Signs Date Time Temp Pulse Resp B/P Pulse Ox O2 Delivery O2 Flow Rate FiO2 11/03/16 08:43 98 Nasal Cannula 3.00 11/03/16 07:45 98.3 69 18 119/59 100 11/03/16 04:36 96.4 76 16 105/51 100 11/03/16 04:30 96.5 71 16 114/55 99 11/03/16 04:15 96.4 76 16 111/58 100 11/03/16 00:00 96.1 70 16 109/55 99 11/02/16 20:00 96.7 79 16 97/54 100 11/02/16 15:46 98.0 81 18 96/53 100 11/02/16 13:22 96.6 74 18 91/52 99 Physical Exam GENERAL: Thin built cachectic appearing male patient, in no apparent distress. SKIN: No rashes. Bruising noted. HEAD: Atraumatic. Normocephalic. No temporal or scalp tenderness. EYES: Pupils equal round and reactive. Extraocular motions intact. No scleral icterus. No injection or drainage. ENT: Nose without bleeding, purulent drainage or septal hematoma. Throat without erythema, tonsillar hypertrophy or exudate. Uvula midline. Airway patent. NECK: Left side mass with areas of blackening noted ? post radiation. Warmth and tenderness. Patient defers detailed exam. Chest wall with nato on chest for radiation. CARDIOVASCULAR: RRR RESPIRATORY: Clear to auscultation. Breath sounds equal bilaterally. Occ wheezes. GASTROINTESTINAL: Abdomen soft, non-tender, nondistended. PEG tube site ok. MUSCULOSKELETAL: Extremities without clubbing, cyanosis, or edema. No joint tenderness, effusion, or edema noted. No calf tenderness. Negative Homans sign bilaterally. NEUROLOGICAL: Awake and alert. Grossly nonfocal Psych: cooperative, flat affect, anxious. Port site with no e.o infection. Laboratory Laboratory Tests Test 11/03/16 11/03/16 11/03/16 01:20 01:25 07:50 Blood Type O POSITIVE O POSITIVE Antibody Screen NEGATIVE Crossmatch Leukocyte-Reduced Red Blood Cells Blood Bank Comment White Blood Count 2.5 Red Blood Count 2.24 Hemoglobin 7.4 9.0 Hematocrit 21.7 26.6 Mean Corpuscular Volume 97.2 Mean Corpuscular Hemoglobin 33.3 Mean Corpuscular Hemoglobin 34.2 Concent Red Cell Distribution Width 14.7 Platelet Count 20 Mean Platelet Volume 7.6 Neutrophils (%) (Auto) 76.5 Lymphocytes (%) (Auto) 17.8 Monocytes (%) (Auto) 4.8 Eosinophils (%) (Auto) 0.6 Basophils (%) (Auto) 0.3 Neutrophils # (Auto) 1.9 Lymphocytes # (Auto) 0.4 Monocytes # (Auto) 0.1 Eosinophils # (Auto) 0.0 Basophils # (Auto) 0.0 CBC Comment AUTO DIFF Differential Comment AUTO DIFF CONFIRMED Platelet Estimate RARE Platelet Morphology Comment NORMAL Date/Time Procedure Status Source Growth 11/02/16 01:40 Aerobic Blood Culture Received Blood Line Pending 11/02/16 01:40 Anaerobic Blood Culture Received Blood Line Pending Result Diagram: 11/03/16 0750 11/02/16 0702 Imaging Last Impressions Modified Barium Swallow 11/02/16 0000 Signed Impressions: Service Date/Time: October 00:00 - CONCLUSION: Please refer to speech pathology report for complete discussion. Ambrosio Kuo MD Chest CT 11/01/16 0000 Signed Impressions: Service Date/Time: Tuesday, November 01, 2016 18:08 - CONCLUSION: 1. Multiple areas of nodularity scattered throughout both lungs. Within the left upper lobe there is a cavitary lesion as well. Differential diagnostic considerations would include metastatic disease versus an infectious process. I tend to favor the former. 2. 5.9 x 5.0 cm left neck mass partially seen. 3. Small bilateral pleural effusions. Hugo Brandon Jr., MD Head CT 10/31/16 0000 Signed Impressions: Service Date/Time: Monday, October 31, 2016 17:20 - CONCLUSION: No acute findings. The patient has had radiation therapy to the brain and there is a stable hypodensity in the right frontal region. Hugo Goodman MD Chest X-Ray 10/31/16 0000 Signed Impressions: Service Date/Time: Monday, October 31, 2016 23:04 - CONCLUSION: Faint nodular densities overlying each of the lungs. Noncontrast chest CT is recommended. Somewhat narrowed trachea. Myron Yuan MD Assessment and Plan Assessment and Plan Aspiration pneumonia/CAP present on admission. Cavitatory lung lesion DDx: Aspiration PNA chronically, mets related. Aspiration risk Squamous cell carcinoma of left neck with unknown primary (diagnosed in Jun 2016 ) Cachexia, weight loss. Depression, anxiety Recs Continue oral augmentin for now. With normal procalcitonin I am concerned this could be non infectious process such as mets. Discussed with patient options for proceeding Option no 1: Empiric treatment with augmentin, follow up with Pulm and ID in 10 days, repeat imaging at that time. If persistent lung infection bronchoscopy followed by IR guided if bronch negative. Option no 2: Bronchoscopy now (after platelet transfusion per ), if cultures and path inconclusive proceed with IR guided biopsy of peripheral lung lesions. Attempted to contact both Dr.Awais Gilbert and : patient would like to proceed with bronchoscopy followed by IR guided lung biopsy if bronch negative.Will let other MDs decide with patient which route to proceed. D/w Anushka CHAVEZ, Clinton CHAVEZ, . D.w patients healthcare financial analyst Donna. Palliative care consult for goals of therapy and supportive care per family request. Consult Dietary to help with tube feeding goals etc d/w : if patient is discharged over the weekend ok to DC on oral augmentin for 14 days, with follow up outpatient with Dr.Reba Lebron, Pulm and Dr.Awais Gilbert. to cover for me from 11/04/16 to 11/06/16. I will be back 11/07/16. Alyssa Ahumada MD Nov 03, 2016 08:58
[2016-11-03] MEDS: SODIUM CHLORIDE 0.9% FLUSH 10 ML FLUSH IV FLUSH SCH (09:00)
--- NOTE | 2016-11-03 09:46 | PD.ONC.PN ---
Subjective Subjective Remarks Afebrile overnight. Patient eager to know when he can go home. + cough. Denies further nausea and vomiting. Is currently NPO. Objective Data Date Time Temp Pulse Resp B/P Pulse Ox O2 Delivery O2 Flow Rate FiO2 11/03/16 08:43 98 Nasal Cannula 3.00 11/03/16 07:45 98.3 69 18 119/59 100 11/03/16 04:36 96.4 76 16 105/51 100 11/03/16 04:30 96.5 71 16 114/55 99 11/03/16 04:15 96.4 76 16 111/58 100 11/03/16 00:00 96.1 70 16 109/55 99 11/02/16 20:00 96.7 79 16 97/54 100 11/02/16 15:46 98.0 81 18 96/53 100 11/02/16 13:22 96.6 74 18 91/52 99 Result Diagram: 11/03/16 0750 11/02/16 0702 Laboratory Results Laboratory Tests Test 11/03/16 11/03/16 11/03/16 01:20 01:25 07:50 Blood Type O POSITIVE O POSITIVE Antibody Screen NEGATIVE Crossmatch Leukocyte-Reduced Red Blood Cells Blood Bank Comment White Blood Count 2.5 TH/MM3 Red Blood Count 2.24 MIL/MM3 Hemoglobin 7.4 GM/DL 9.0 GM/DL Hematocrit 21.7 % 26.6 % Mean Corpuscular Volume 97.2 FL Mean Corpuscular Hemoglobin 33.3 PG Mean Corpuscular Hemoglobin 34.2 % Concent Red Cell Distribution Width 14.7 % Platelet Count 20 TH/MM3 Mean Platelet Volume 7.6 FL Neutrophils (%) (Auto) 76.5 % Lymphocytes (%) (Auto) 17.8 % Monocytes (%) (Auto) 4.8 % Eosinophils (%) (Auto) 0.6 % Basophils (%) (Auto) 0.3 % Neutrophils # (Auto) 1.9 TH/MM3 Lymphocytes # (Auto) 0.4 TH/MM3 Monocytes # (Auto) 0.1 TH/MM3 Eosinophils # (Auto) 0.0 TH/MM3 Basophils # (Auto) 0.0 TH/MM3 CBC Comment AUTO DIFF Differential Comment AUTO DIFF CONFIRMED Platelet Estimate RARE Platelet Morphology Comment NORMAL Culture Results Microbiology Date/Time Procedure Status Source Growth 11/02/16 01:35 Aerobic Blood Culture Received Blood Line Pending 11/02/16 01:35 Anaerobic Blood Culture Received Blood Line Pending 11/02/16 01:40 Aerobic Blood Culture Received Blood Line Pending 11/02/16 01:40 Anaerobic Blood Culture Received Blood Line Pending Administered Medications Medications (Trade) Dose Ordered Sig/[place] Route PRN Reason Start Time Stop Time Status Last Admin Dose Admin Temazepam (Restoril) 15 mg HS PRN PO INSOMNIA 10/31/16 18:15 10/31/16 22:58 Dexamethasone (Decadron) 2 mg DAILY PO 11/01/16 09:00 11/01/16 09:03 Fluconazole (Diflucan) 100 mg DAILY PO 11/01/16 09:00 11/01/16 09:03 Hydromorphone HCl (Dilaudid) 2 mg Q6H PRN PO PAIN 10/31/16 22:30 11/02/16 14:34 Morphine Sulfate (Oramorph Sr) 30 mg BID PO 11/01/16 09:00 11/02/16 21:14 Pantoprazole Sodium (Protonix) 20 mg DAILY PO 11/01/16 09:00 11/01/16 09:03 Dextrose 25 ml 25 ml UNSCH PRN IV PUSH HYPOGLYCEMIA-SEE COMMENTS 11/02/16 08:30 11/02/16 08:46 Potassium Chloride/Dextrose/ Sod Cl (D5-1/2 NS + KCl 20 Meq Inj) 1,000 ml @ 50 mls/hr Q20H IV 11/02/16 10:00 11/03/16 03:42 Amoxicillin/ Clavulanate Potassium (Augmentin) 875 mg Q12HR PO 11/02/16 21:00 11/02/16 21:14 Objective Remarks GENERAL: Chronically ill appearing middle aged male, sitting up in bed in [facility]. SKIN: Warm and dry. HEAD: Normocephalic. EYES: No injection or drainage. NECK: Supple, trachea midline. CARDIOVASCULAR: Regular rate and rhythm RESPIRATORY: Breath sounds equal bilaterally. No accessory muscle use. GASTROINTESTINAL: Abdomen soft, non-tender, nondistended. EXTREMITIES: No cyanosis NEUROLOGICAL: awake and alert, normal speech. Assessment/Plan Problem List: (1) lung lesions Status: Acute Plan: --difficult to tell whether these are metastatic lesions-- patient was being treated with concurrent chemotherapy and radiation for curative intent for his head and neck cancer - will discuss with Dr. Cuevas for possible bronchoscopy and cytology to asses - PET ct scan outpatient - Treat as pneumonia at this time per pulm and ID (2) Nausea & vomiting Status: Acute Plan: --secondary to chemotherapy. --improved (3) Thrombocytopenia Status: Acute Plan: --secondary to chemotherapy. --no evidence of bleeding. --Can be transfused platelets to bring platelet count above 50,00 for bronchoscopy (4) Protein calorie malnutrition Status: Chronic Plan: --digital sales director consulted and patient started on tube feeds --patient NPO digital sales director recommends: Recommend pureed diet with supplements during the day. Recommend nocturnal TF (7pm-7am) of Jevity 1.5 with goal rate of 50ml/hr. (5) Squamous cell carcinoma of head and neck Status: Chronic Plan: --was undergoing chemo/radiation --further treatment to be given outpatient. (6) Anemia due to antineoplastic chemotherapy Status: Acute Plan: --transfuse to keep hgb>7 Assessment 56-year-old male with a diagnosis of squamous cell carcinoma of the neck with unknown primary. He is currently undergoing concurrent chemotherapy and radiation treatments. He presented to the emergency department with lethargy, failure to thrive, poor oral intake, nausea, vomiting and dehydration. Plan 1. monitor CBC 2. continue IVF 3. start tube feeds 4. patient is ok to go home when cleared by other specialties. Attending Statement The exam, history, and the medical decision-making described in the above note were completed with the assistance of the mid-level provider. I reviewed and agree with the findings presented. I attest that I had a [id number] encounter with the patient on the same day, and personally performed and documented my assessment and findings in the medical record. Amalia Gomez Nov 03, 2016 09:46 Jorge Gilbert MD Nov 03, 2016 23:05 Amalia Gomez Nov 03, 2016 09:46
[2016-11-03] MEDS: DEXAMETHASONE 4 MG TAB PO SCH (09:53)
[2016-11-03] MEDS: PANTOPRAZOLE SOD 20 MG DELAYED RELEASE TAB PO SCH (09:54)
[2016-11-03] MEDS: MORPHINE SULFATE 30 MG CONTROLLED RELEASE TAB PO SCH (09:54)
[2016-11-03] MEDS: FLUCONAZOLE 100 MG TAB PO SCH (09:54)
--- NOTE | 2016-11-03 10:47 | PD.CONS ---
Consult Service Palliative Care . Consult Requested By Dr. Carlos Ahumada . Primary Care Physician Jorge Gilbert MD . Reason for Consultation a. To assist with evaluation and management of symptoms including: weakness , dysphagia. b. To assist medical decision maker(s) with: better understanding of current medical conditions; weighing benefits/burdens of medical treatment options; making medical treatment decisions. . HPI History of Present Illness Mr. 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 He developed a left neck mass in June 2016, biopsy confirmed squamous cell carcinoma with extensive necrosis. Has been getting concurrent radiation and chemotherapy (carboplatin) . Patient had a PEG tube placed approximate 3 weeks ago notes indicate he has not been using his PEG tube for artificial nutrition. Patient presented to [facility] emergency department on 10/31/[address] Guthrie for evaluation of altered mental status, dehydration, decreased urine output. Notes indicate he was unable to eat or drink for a few days, has not been using PEG tube. He was reportedly hallucinating. * VS - pulse 86, resp 16, B/P 91/54, oxygen sat 98% room air. * WBC 4.5, hemoglobin 8.9, hematocrit 24.8, platelet count 37, neutrophils 84.8% * PT 11.5, INR 1.0, PTT 31.6 * sodium 130, potassium 3.2, chloride 93, carbon monoxide 27.3, BUN 19, creatinine 1.05, GFR 70, glucose 109 * lactic acid 0.6 * total bilirubin 0.7, AST 9, ALT 14, alkaline phosphatase 94 * total protein 6.6, albumin 2.5 * CT head no acute findings, prior radiation to the brain, stable hypodensity in the right frontal region. * Chest x-ray faint nodular densities overlying each of the lungs Patient was admitted with altered mental status, dehydration, inability to eat or drink. Additional test results since admission include: * 11/01/16 CT chest multiple areas of nodularity scattered throughout both lungs, left upper lobe with cavitary lesion differential diagnoses metastatic lesion versus infectious process, 5.9 x 5.0 cm left neck mass partially seen, small bilateral pleural effusions. * 11/02/16 - Modified barium swallow - recommendation for pured diet with thin liquids, patient unable to masticate soft food secondary to lack of dentition. Medical oncology, Dr. Gilbert was consulted. Thrombocytopenia secondary to chemotherapy. Tube feedings started for malnutrition. Pulmonology, Dr. Cuevas was consulted for evaluation of lesion on the lung, suspect metastatic disease and lung. Initially unable to consider lung biopsy given thrombocytopenia. Dr. Barbara Ahumada, infectious disease was also consulted for management of possible aspiration pneumonia/cavitary lesion in lung. It appears like to proceed with bronchoscopy and biopsy. Will need platelet transfusion for consideration of biopsy. Palliative care is consulted for further clarification of treatment goals, supportive care and family request. . 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 He has been unable to work, losing weight and fatigued since then. . Review of Systems Constitutional: COMPLAINS OF: Fatigue, Weight loss, Change in appetite ( decreased), Generalized weakness Respiratory: COMPLAINS OF: Cough, Sputum production Gastrointestinal: COMPLAINS OF: Nausea, Vomiting, Difficulty Swallowing, Anorexia Musculoskeletal: COMPLAINS OF: Neck pain (intermittent, sharp left neck pain, relief with PRN pain meds. ) Hematologic/Lymphatics: COMPLAINS OF: Bruising Neurologic: COMPLAINS OF: Speech Problems Psychiatric: COMPLAINS OF: Hallucinations (resolved) Past Family Social History Coded Allergies: No Known Allergies (Unverified , 10/02/16) Past Medical History Squamous cell carcinoma left neck discovered in June 2016 Likely undiagnosed COPD . Past Surgical History PEG tube Left neck tumor resection - 9 yrs ago . Reported Medications Reported Medications Reported Meds & Active Scripts Active Reported Alprazolam 0.25 Mg Tab 0.25 Mg PO Q4H PRN Fluconazole 100 Mg Tab 100 Mg PO DAILY Omeprazole 20 Mg Tab 20 Mg PO DAILY Morphine Sulfate CR (Morphine Sulfate) 15 Mg Tab 30 Mg PO BID Dexamethasone 2 Mg Tab 2 Mg PO DAILY Hydromorphone (Hydromorphone HCl) 2 Mg Tab 2 Mg PO Q6H PRN . Current Medications Medications (Trade) Dose Ordered Sig/[place] Route Start Time Stop Time Status Last Admin (NS Flush) 2 ml UNSCH PRN IV FLUSH 10/31/16 18:15 (NS Flush) 2 ml BID IV FLUSH 10/31/16 21:00 (Tylenol) 650 mg Q4H PRN PO 10/31/16 18:15 (Zofran Inj) 4 mg Q6H PRN IVP 10/31/16 18:15 (Milk Of Magnesia Liq) 30 ml Q12H PRN PO 10/31/16 18:15 (Restoril) 15 mg HS PRN PO 10/31/16 18:15 10/31/16 22:58 (Xanax) 0.25 mg Q4H PRN PO 10/31/16 22:30 (Decadron) 2 mg DAILY PO 11/01/16 09:00 11/03/16 09:53 (Diflucan) 100 mg DAILY PO 11/01/16 09:00 11/03/16 09:54 (Dilaudid) 2 mg Q6H PRN PO 10/31/16 22:30 11/02/16 14:34 (Oramorph Sr) 30 mg BID PO 11/01/16 09:00 11/03/16 09:54 (Protonix) 20 mg DAILY PO 11/01/16 09:00 11/03/16 09:54 (D50w (Vial) Inj) 25 ml UNSCH PRN IV PUSH 11/02/16 08:30 11/02/16 08:46 Glucagon 1 mg 1 mg UNSCH PRN OTHER 11/02/16 08:30 (D5-1/2 NS + KCl 20 Meq Inj) 1,000 ml @ 50 mls/hr Q20H IV 11/02/16 10:00 11/03/16 03:42 (Augmentin) 875 mg Q12HR PO 11/02/16 21:00 11/02/16 21:14 . Family History Mom's family- heart attack cancer - in dad's family dad has lung cancer . Substance Use Tobacco: Alcohol: Prescription med abuse: Illicits: Psychosocial History Born and raised in [place]. He has lived in [place] for 38 years. He has been to [place] for 26 years. No children. 4 brothers live in [place]. No experience. 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 Lives in [place]. . Spiritual/Cultural Factors Baptist religious . Living Will: Never completed Health Care Surrogate: Never completed Durable Power of Can Striper: Never completed Health Care Surrogate(s): Patient is currently incapacitated to make his own health care decisions. He does not have written advance directives. Indicates should he lose capacity he would want his Prabha Long to serve as healthcare proxy decision maker. . Ethical and Legal Issues Patient is currently incapacitated to make his own health care decisions. He does not have written advance directives. Indicates should he lose capacity he would want his Prabha Long to serve as healthcare proxy decision maker. . Physical Exam Vital Signs Date Time Temp Pulse Resp B/P Pulse Ox O2 Delivery O2 Flow Rate FiO2 11/03/16 08:43 98 Nasal Cannula 3.00 11/03/16 07:45 98.3 69 18 119/59 100 11/03/16 04:36 96.4 76 16 105/51 100 11/03/16 04:30 96.5 71 16 114/55 99 11/03/16 04:15 96.4 76 16 111/58 100 11/03/16 00:00 96.1 70 16 109/55 99 11/02/16 20:00 96.7 79 16 97/54 100 11/02/16 15:46 98.0 81 18 96/53 100 11/02/16 13:22 96.6 74 18 91/52 99 11/02/16 11/03/16 19:00 07:00 Intake Total 1326 ml Output Total 125 ml 800 ml Balance -125 ml 526 ml Intake Oral 120 ml IV Total 876 ml Packed Cells 330 ml Output Urine Total 125 ml 800 ml # Bowel Movements 0 Exam CONSTITUTIONAL/GENERAL: This is an thin, cachectic, frail appearing man, in no apparent distress. TUBES/LINES/DRAINS: Oxygen NC, right port, PIV, SCDs. SKIN: No jaundice, rashes, or lesions. Ecchymoses on upper extremities. No wounds seen anteriorly. Skin temperature appropriate. Not diaphoretic. HEAD: Atraumatic. Normocephalic. EYES: Pupils equal and round and reactive. ENT: Hearing grossly normal. No teeth, does not wear his dentures. Nose without bleeding or purulent drainage. Left neck with large, firm mass, warm, radiation skin changes noted. NECK: Trachea midline. CARDIOVASCULAR: Right chest port. Regular rate and rhythm without murmurs, gallops, or rubs. No JVD. Peripheral pulses symmetric. RESPIRATORY/CHEST: Symmetric, unlabored respirations. Clear to auscultation. Occasional wheeze. GASTROINTESTINAL: PEG tube clamped. Abdomen soft, non-tender, nondistended. Bowel sounds present. GENITOURINARY: Without palpable bladder distension. MUSCULOSKELETAL: Extremities without clubbing, cyanosis, or edema. No joint tenderness or effusion noted. No calf tenderness. No mottling or clubbing. LYMPHATICS: Large left neck mass. NEUROLOGICAL: Awake and alert. ambulated in herrera with PT. Follows commands. Cognitively sharp. Moves all extremities. PSYCHIATRIC: Cooperative, denies anxiety/depression. no hallucinations or other psychotic thought process. . Diagnostic Tests Laboratory Laboratory Tests Test 10/31/16 11/01/16 11/01/16 11/02/16 17:10 05:05 15:40 01:40 White Blood Count 4.5 TH/MM3 (4.0-11.0) Red Blood Count 2.58 MIL/MM3 (4.50-5.90) Hemoglobin 8.9 GM/DL (13.0-17.0) Hematocrit 24.8 % (39.0-51.0) Mean Corpuscular Volume 96.0 FL (80.0-100.0) Mean Corpuscular Hemoglobin 34.3 PG (27.0-34.0) Mean Corpuscular Hemoglobin 35.7 % Concent (32.0-36.0) Red Cell Distribution Width 14.6 % (11.6-17.2) Platelet Count 37 TH/MM3 (150-450) Mean Platelet Volume 8.0 FL (7.0-11.0) Neutrophils (%) (Auto) 84.8 % (16.0-70.0) Lymphocytes (%) (Auto) 9.2 % (9.0-44.0) Monocytes (%) (Auto) 5.1 % (0.0-8.0) Eosinophils (%) (Auto) 0.3 % (0.0-4.0) Basophils (%) (Auto) 0.6 % (0.0-2.0) Neutrophils # (Auto) 3.8 TH/MM3 (1.8-7.7) Lymphocytes # (Auto) 0.4 TH/MM3 (1.0-4.8) Monocytes # (Auto) 0.2 TH/MM3 (0-0.9) Eosinophils # (Auto) 0.0 TH/MM3 (0-0.4) Basophils # (Auto) 0.0 TH/MM3 (0-0.2) CBC Comment AUTO DIFF Differential Comment AUTO DIFF CONFIRMED Platelet Estimate LOW (NORMAL) Platelet Morphology Comment NORMAL (NORMAL) Prothrombin Time 11.5 SEC (9.8-11.6) Prothromb Time International 1.0 RATIO Ratio Activated Partial 31.6 SEC Thromboplast Time (24.3-30.1) Sodium Level 130 MEQ/L 138 MEQ/L (136-145) (136-145) Potassium Level 3.2 MEQ/L 3.5 MEQ/L (3.5-5.1) (3.5-5.1) Chloride Level 93 MEQ/L 102 MEQ/L (98-107) (98-107) Carbon Dioxide Level 27.3 MEQ/L 27.9 MEQ/L (21.0-32.0) (21.0-32.0) Anion Gap 10 MEQ/L (5-15) 8 MEQ/L (5-15) Blood Urea Nitrogen 19 MG/DL (7-18) 13 MG/DL (7-18) Creatinine 1.05 MG/DL 0.68 MG/DL (0.60-1.30) (0.60-1.30) Estimat Glomerular Filtration 70 ML/MIN (>89) 116 ML/MIN Rate (>89) Random Glucose 109 MG/DL 70 MG/DL (74-106) (74-106) Lactic Acid Level 0.6 mmol/L (0.4-2.0) Calcium Level 8.6 MG/DL 7.8 MG/DL (8.5-10.1) (8.5-10.1) Total Bilirubin 0.7 MG/DL 0.4 MG/DL (0.2-1.0) (0.2-1.0) Aspartate Amino Transf 9 U/L (15-37) 9 U/L (15-37) (AST/SGOT) Alanine Aminotransferase 14 U/L (12-78) 11 U/L (12-78) (ALT/SGPT) Alkaline Phosphatase 94 U/L (45-117) 81 U/L (45-117) Total Protein 6.6 GM/DL 5.7 GM/DL (6.4-8.2) (6.4-8.2) Albumin 2.5 GM/DL 2.1 GM/DL (3.4-5.0) (3.4-5.0) Urine Color YELLOW (YELLW/STRAW) Urine Turbidity CLEAR (CLEAR) Urine pH 6.0 (5.0-8.5) Urine Specific [place] 1.012 (1.002-1.035) Urine Protein TRACE mg/dL (NEG-TRACE) Urine Glucose (UA) NEG mg/dL (NEG) Urine Ketones 10 mg/dL (NEG) Urine Occult Blood NEG (NEG) Urine Nitrite NEG (NEG) Urine Bilirubin NEG (NEG) Urine Urobilinogen LESS THAN 2.0 MG/DL (LESS THAN 2.0) Urine Leukocyte Esterase NEG (NEG) Urine RBC LESS THAN 1 /hpf (0-3) Urine WBC 2 /hpf (0-5) Urine Hyaline Casts 2 /lpf (RARE) Microscopic Urinalysis Comment CULT NOT INDICATED Procalcitonin LESS THAN 0.05 ng/mL (0.00-0.50) Test 11/02/16 11/03/16 11/03/16 11/03/16 07:02 01:20 01:25 07:50 White Blood Count 3.2 TH/MM3 2.5 TH/MM3 (4.0-11.0) (4.0-11.0) Red Blood Count 2.42 MIL/MM3 2.24 MIL/MM3 (4.50-5.90) (4.50-5.90) Hemoglobin 8.1 GM/DL 7.4 GM/DL 9.0 GM/DL (13.0-17.0) (13.0-17.0) (13.0-17.0) Hematocrit 23.8 % 21.7 % 26.6 % (39.0-51.0) (39.0-51.0) (39.0-51.0) Mean Corpuscular Volume 98.6 FL 97.2 FL (80.0-100.0) (80.0-100.0) Mean Corpuscular Hemoglobin 33.4 PG 33.3 PG (27.0-34.0) (27.0-34.0) Mean Corpuscular Hemoglobin 33.9 % 34.2 % Concent (32.0-36.0) (32.0-36.0) Red Cell Distribution Width 14.8 % 14.7 % (11.6-17.2) (11.6-17.2) Platelet Count 27 TH/MM3 20 TH/MM3 (150-450) (150-450) Mean Platelet Volume 8.5 FL 7.6 FL (7.0-11.0) (7.0-11.0) Sodium Level 138 MEQ/L (136-145) Potassium Level 3.7 MEQ/L (3.5-5.1) Chloride Level 104 MEQ/L (98-107) Carbon Dioxide Level 24.2 MEQ/L (21.0-32.0) Anion Gap 10 MEQ/L (5-15) Blood Urea Nitrogen 12 MG/DL (7-18) Creatinine 0.54 MG/DL (0.60-1.30) Estimat Glomerular Filtration 152 ML/MIN Rate (>89) Random Glucose 57 MG/DL (74-106) Calcium Level 7.8 MG/DL (8.5-10.1) Blood Type O POSITIVE O POSITIVE Antibody Screen NEGATIVE Crossmatch Leukocyte-Reduced Red Blood Cells Blood Bank Comment Neutrophils (%) (Auto) 76.5 % (16.0-70.0) Lymphocytes (%) (Auto) 17.8 % (9.0-44.0) Monocytes (%) (Auto) 4.8 % (0.0-8.0) Eosinophils (%) (Auto) 0.6 % (0.0-4.0) Basophils (%) (Auto) 0.3 % (0.0-2.0) Neutrophils # (Auto) 1.9 TH/MM3 (1.8-7.7) Lymphocytes # (Auto) 0.4 TH/MM3 (1.0-4.8) Monocytes # (Auto) 0.1 TH/MM3 (0-0.9) Eosinophils # (Auto) 0.0 TH/MM3 (0-0.4) Basophils # (Auto) 0.0 TH/MM3 (0-0.2) CBC Comment AUTO DIFF Differential Comment AUTO DIFF CONFIRMED Platelet Estimate RARE (NORMAL) Platelet Morphology Comment NORMAL (NORMAL) Result Diagram: 11/03/16 0750 11/02/16 0702 Microbiology Microbiology Date/Time Procedure Status Source Growth 11/02/16 01:35 Aerobic Blood Culture Received Blood Line Pending 11/02/16 01:35 Anaerobic Blood Culture Received Blood Line Pending 11/02/16 01:40 Aerobic Blood Culture Received Blood Line Pending 11/02/16 01:40 Anaerobic Blood Culture Received Blood Line Pending . Imaging Last Impressions Modified Barium Swallow 11/02/16 0000 Signed Impressions: Service Date/Time: October 00:00 - CONCLUSION: Please refer to speech pathology report for complete discussion. Ambrosio Kuo MD Chest CT 11/01/16 0000 Signed Impressions: Service Date/Time: Tuesday, November 01, 2016 18:08 - CONCLUSION: 1. Multiple areas of nodularity scattered throughout both lungs. Within the left upper lobe there is a cavitary lesion as well. Differential diagnostic considerations would include metastatic disease versus an infectious process. I tend to favor the former. 2. 5.9 x 5.0 cm left neck mass partially seen. 3. Small bilateral pleural effusions. Hugo Brandon Jr., MD Head CT 10/31/16 0000 Signed Impressions: Service Date/Time: Monday, October 31, 2016 17:20 - CONCLUSION: No acute findings. The patient has had radiation therapy to the brain and there is a stable hypodensity in the right frontal region. Hugo Goodman MD Chest X-Ray 10/31/16 0000 Signed Impressions: Service Date/Time: Monday, October 31, 2016 23:04 - CONCLUSION: Faint nodular densities overlying each of the lungs. Noncontrast chest CT is recommended. Somewhat narrowed trachea. Myron Yuan MD . Patient/Family Conference Present at Family Conference: Met with patient at bedside. Later spoke with senior logistics manager Donna Bonner, reviewed conversation with patient. She will speak to provide update. . Family Conference Time (mins): 45 Family Conference Location: Bedside Issues Discussed: * Palliative care role, purpose, approach * Additional medical, psychosocial, and spiritual history * Patients general health, functional status, and cognitive changes in the months leading up to the current hospitalization * Patient/family understanding of the current medical problems * Patient/family understanding of prognosis * Patients goals of care as best understood from advance directives and/or conversations and/or values * Current medical treatment options and benefits/burdens of those options * Likely scenarios comparing ongoing aggressive care with a transition to comfort measures only * Questions answered to the best of my ability * Palliative care contact information provided Assessment and Plan Disease Oriented Problem List: (1) Thrombocytopenia Comment: secondary to chemo, no active bleeding. (2) Protein calorie malnutrition (3) Dehydration (4) Squamous cell carcinoma of head and neck (5) Anemia (6) Nausea & vomiting (7) Cavitary lesion of lung Symptom Scale: (1) Pain 0-10 Scale: 0 Comment: intermittent left neck, sharp pains, relieved with current meds. . (2) Weakness 0-10 Scale: Unable to quantify (3) Dyspnea 0-10 Scale: 0 (4) Decreased appetite 0-10 Scale: Unable to quantify Comment: dietary consulted for PEG tube recommendations. . Pertinent Non-Medical Issues Psychosocial: . No children. Spiritual: [employer] religious. Legal:Patient is currently incapacitated to make his own health care decisions. He does not have written advance directives. Indicates should he lose capacity he would want his Prabha Long to serve as healthcare proxy decision maker. Ethical issues impacting care: no known concerns at this time. . Important Contacts * Prabha Long, spouse: [phone] Prognosis Will need to await biopsy results and speak with oncology for further prognostication. . Code Status: No Code ([place] do not resuscitate order signed by patient, original on chart, scanned into EMR.) Plan * Patient is currently incapacitated to make his own health care decisions. He does not have written advance directives. Indicates should he lose capacity he would want his Prabha Long to serve as healthcare proxy decision maker. * NO CODE [place] do not resuscitate order signed by patient, original placed on chart to go home with patient, sent to HIM to be scanned into EMR. * Palliative care met to further clarify treatment goals. Patient desires to proceed with bronchoscopy/ biopsy to determine whether or not cavitary lesion of lung is malignant versus infectious. He elects NO CODE and understands this would be void during procedure. * SYMPTOMS: Pain: intermittent, sharp pain in left neck, relieved with meds. On Oramorph 30mg PO every 12 hours. Dilaudid 2mg PO every 6 hours PRN BTP. He feels current meds are adequately controlling pain. Weakness: due to cancer, malnutrition and radiation and chemotherapy. No new medication recommendations at this time. * Palliative care number provided. * Palliative care will continue to follow throughout hospital course to assist with symptom management and clarification of goals as needed. . Thank you for the opportunity to participate in the care of Mr. Long. Attestation To help prompt me to consider important information that might be impacting today's encounter and assessment, information from prior notes written by myself or my colleagues may have been "brought forward" into today's note. My signature on this note, however, is an attestation that I personally performed the exam, history, and/or decision-making noted today, and, unless otherwise indicated, the interactions with patient, family, and staff as well as the review of records all occurred today. I also attest that the listed assessment and stated plan reflect my best clinical judgment today based on the combination of historical information, prior notes, and today's exam/ interactions. When time spent is documented, it refers only to time spent today by the signer, or if indicated, combined time spent today by collaborating physician/nurse practitioner. CHRISTIAN SUÁREZ Nov 03, 2016 10:47
--- NOTE | 2016-11-03 10:51 | HHI.PR ---
Subjective Remarks Follow-up for neck cancer and lung lesions. The patient feels well currently. He reports some slight pain in his throat. He denies any problems swallowing or throat numbness. He denies any cough or shortness of breath. He wants to have bronchoscopy done so that he can go home. Objective Vitals Vital Signs Date Time Temp Pulse Resp B/P Pulse Ox O2 Delivery O2 Flow Rate FiO2 11/03/16 08:43 98 Nasal Cannula 3.00 11/03/16 07:45 98.3 69 18 119/59 100 11/03/16 04:36 96.4 76 16 105/51 100 11/03/16 04:30 96.5 71 16 114/55 99 11/03/16 04:15 96.4 76 16 111/58 100 11/03/16 00:00 96.1 70 16 109/55 99 11/02/16 20:00 96.7 79 16 97/54 100 11/02/16 15:46 98.0 81 18 96/53 100 11/02/16 13:22 96.6 74 18 91/52 99 I/O 11/02/16 11/02/16 11/02/16 11/03/16 11/03/16 11/03/16 07:00 15:00 23:00 07:00 15:00 23:00 Intake Total 1340 ml 649 ml 677 ml Output Total 125 ml 350 ml 450 ml Balance 1340 ml -125 ml 299 ml 227 ml Intake Oral 240 ml 120 ml IV Total 1100 ml 529 ml 347 ml Packed Cells 330 ml Output Urine Total 125 ml 350 ml 450 ml # Bowel Movements 0 0 Result Diagram: 11/03/16 0750 11/02/16 0702 Imaging Last Impressions Modified Barium Swallow 11/02/16 0000 Signed Impressions: Service Date/Time: October 00:00 - CONCLUSION: Please refer to speech pathology report for complete discussion. Ambrosio Kuo MD Chest CT 11/01/16 0000 Signed Impressions: Service Date/Time: Tuesday, November 01, 2016 18:08 - CONCLUSION: 1. Multiple areas of nodularity scattered throughout both lungs. Within the left upper lobe there is a cavitary lesion as well. Differential diagnostic considerations would include metastatic disease versus an infectious process. I tend to favor the former. 2. 5.9 x 5.0 cm left neck mass partially seen. 3. Small bilateral pleural effusions. Hugo Brandon Jr., MD Head CT 10/31/16 0000 Signed Impressions: Service Date/Time: Monday, October 31, 2016 17:20 - CONCLUSION: No acute findings. The patient has had radiation therapy to the brain and there is a stable hypodensity in the right frontal region. Hugo Goodman MD Chest X-Ray 10/31/16 0000 Signed Impressions: Service Date/Time: Monday, October 31, 2016 23:04 - CONCLUSION: Faint nodular densities overlying each of the lungs. Noncontrast chest CT is recommended. Somewhat narrowed trachea. Myron Yuan MD Objective Remarks GENERAL: Well-developed fair-nourished. In no acute distress. SKIN: Warm and dry. No lesions noted. HEENT: Normocephalic. Pupils equal and round. Mucous membranes pink and moist. Left neck swelling. CARDIOVASCULAR: Regular rate and rhythm. No murmur appreciated. RESPIRATORY: No accessory muscle use. Clear to auscultation. Breath sounds equal bilaterally. GASTROINTESTINAL: Abdomen soft, non-tender, nondistended. Bowel sounds x4. PEG tube in place. MUSCULOSKELETAL: No obvious deformities. No clubbing or cyanosis. No edema. NEUROLOGICAL: Awake and alert. No focal neurological deficits. Moves upper and lower extremities spontaneously. Normal speech. PSYCHIATRIC: Appropriate mood and affect; insight and judgment normal. 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 The patient is being treated by Dr. Jorge Gilbert oncologist and Dr. Dominic Guthrie radiation oncologist. He has no primary care physician. A PEG tube was placed 3 weeks ago but this has not been used despite patients inability to eat or drink for the past few days. Squamous cell carcinoma of the left neck with unknown primary - Consulted medical and radiation oncology - continue home analgesic regimen - Speech therapy consulted for swallow evaluation - Maintenance fluid with D5 and hypoglycemia protocol while nothing by mouth pending swallow eval Altered mental status Head CT with no acute findings; stable hypodensity in right frontal region noted - Improved. Most likely due to dehydration since patient improved with IV fluids. Pulmonary lesions Initial chest x-ray with a nodular densities overlying both lungs with chest CT recommended. Chest CT showed multiple areas of nodularity scattered through both lungs with a cavitary lesion in the left upper lobe as well; infection versus metastatic disease in the differential. - Continue on Augmentin, ID is consulted - Pulmonary consulted, ID and onc would prefer bronchoscopy, NPO for now Hypokalemia -Replaced. Continue maintenance IVF with potassium. Mild AICHA to dehydration Creatinine 1.05 at admission, improved to 0.54 with IVF - Resolved with IV fluids. Anemia, normocytic - suspect secondary to chemotherapy. Symptomatic with fatigue. Hemoglobin 8.9 was 10.6 on 10/23/2016. - No signs of active bleeding. - Hemoglobin decreased to 8.1, possibly dilutional with IVF - Patient's oncologist already consulted, ordered transfusion 1 unit PRBC. - Hgb improved after transfusion Thrombocytopenia - Platelet count decreased to 20 from 142,000. Likely due to XRT. - No sign of bleeding. Continue to monitor. - Patient's oncologist consulted. - Will transfuse platelets if patient goes for bronchoscopy. Hyponatremia - Sodium 130 improved to 138 with IVF. Moderate protein calorie malnutrition Albumin 2.5. Weight 42 kg. - consulted stage director for assistance with tube feeding recommendations DVT prophylaxis - SCDs Problem Qualifiers (1) Altered mental status: Qualified Code: R41.82 - Altered mental status, unspecified altered mental status type Clinton Guardado Nov 03, 2016 10:51
[2016-11-03] MEDS: AMOXICILLIN/CLAVULANATE K 875 MG TAB PO SCH (13:59)
[2016-11-03] MEDS ORDERED: AMOX875T2 PO (15:07)
--- NOTE | 2016-11-03 15:18 | HHI.FF ---
Face to Face Verification Diagnosis: (1) Squamous cell carcinoma of head and neck (2) Cavitary lesion of lung (3) lung lesions (4) Anemia due to antineoplastic chemotherapy Physical Therapy Order: Evaluate and Treat Home Health Nursing Order: Medical education Signs/symptoms of disease process Medication education-adverse effect Nursing assessment with vital signs Instructions: Tube feeding administration I have seen patient Josue Long on 11/03/16. My clinical findings support the need for the requested home health care services because: Med compliance is questionable Limited ability to care for self Need for psychosocial assistance Infection w/ risk of complications Injectable med education/admin I certify that my clinical findings support that this patient is homebound because: Need for psychosocial assistance Clinton Guardado Nov 03, 2016 15:18
--- NOTE | 2016-11-03 15:23 | HHI.DS ---
Discharge Summary Admission Date Nov 02, 2016 at 09:41 Discharge Date: Nov 03, 2016 Admitting Diagnosis altered mental status, dehydration, inability to eat or drink (1) Squamous cell carcinoma of head and neck ICD Code: C76.0 Diagnosis: Principal (2) Altered mental status ICD Code: R41.82 Diagnosis: Principal (3) Dehydration ICD Code: E86.0 Diagnosis: Principal (4) Hypokalemia ICD Code: E87.6 Diagnosis: Secondary (5) Anemia ICD Code: D64.9 Diagnosis: Secondary (6) Hyponatremia ICD Code: E87.1 Diagnosis: Secondary (7) Acute renal insufficiency ICD Code: N28.9 Diagnosis: Secondary (8) Thrombocytopenia ICD Code: D69.6 Diagnosis: Secondary (9) Protein calorie malnutrition ICD Code: E46 Diagnosis: Secondary Procedures None Brief History - From Admission Mr. 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 The patient is being treated by Dr. Sparkle Gilbert oncologist and Dr. Dominic Guthrie radiation oncologist. He has no primary care physician. A PEG tube was placed 3 weeks ago but this has not been used despite patients inability to eat or drink for the past few days. History was obtained from both a family friend at the bedside and from the patient. The patient frequently denies symptoms that the family friend reports he has been having. The patient has not been eating well and has not slept for 2 days. Since 10/28/2016, the patient has not been able to eat or drink well at all. He has had some nausea with a few episodes of vomiting according to the family friend. The family friend also reports that he has had some diarrhea but she is unable to tell us if the stools or black or bloody. The patient had impacted stool last week that was treated with a fleets enema ordered by Dr. Guthrie - which produced an unknown amount of stool but did produce some stool. The patient's family believes that he has been having decreased urinary output. They have also noted that he has been having a gurgling in his throat at the time he drinks liquids by mouth. The family reports that the patient has been dyspneic but the patient denies this. last dose chemo 10/24 hydration was 10/26 radiation every day sunday through sunday at 9a.m. Patient himself denies chest pain or shortness of breath. He reports significant pain at the left side of his neck where his cancer is located. . CBC/BMP: 11/03/16 0750 11/02/16 0702 Significant Findings Laboratory Tests Test 10/31/16 11/01/16 11/01/16 11/02/16 17:10 05:05 15:40 07:02 Red Blood Count 2.58 MIL/MM3 2.42 MIL/MM3 (4.50-5.90) (4.50-5.90) Hemoglobin 8.9 GM/DL 8.1 GM/DL (13.0-17.0) (13.0-17.0) Hematocrit 24.8 % 23.8 % (39.0-51.0) (39.0-51.0) Mean Corpuscular Hemoglobin 34.3 PG (27.0-34.0) Platelet Count 37 TH/MM3 27 TH/MM3 (150-450) (150-450) Neutrophils (%) (Auto) 84.8 % (16.0-70.0) Lymphocytes # (Auto) 0.4 TH/MM3 (1.0-4.8) Platelet Estimate LOW (NORMAL) Activated Partial 31.6 SEC Thromboplast Time (24.3-30.1) Sodium Level 130 MEQ/L (136-145) Potassium Level 3.2 MEQ/L (3.5-5.1) Chloride Level 93 MEQ/L (98-107) Blood Urea Nitrogen 19 MG/DL (7-18) Estimat Glomerular Filtration 70 ML/MIN (>89) Rate Random Glucose 109 MG/DL 70 MG/DL 57 MG/DL (74-106) (74-106) (74-106) Aspartate Amino Transf 9 U/L (15-37) 9 U/L (15-37) (AST/SGOT) Albumin 2.5 GM/DL 2.1 GM/DL (3.4-5.0) (3.4-5.0) Calcium Level 7.8 MG/DL 7.8 MG/DL (8.5-10.1) (8.5-10.1) Alanine Aminotransferase 11 U/L (12-78) (ALT/SGPT) Total Protein 5.7 GM/DL (6.4-8.2) Urine Ketones 10 mg/dL (NEG) White Blood Count 3.2 TH/MM3 (4.0-11.0) Creatinine 0.54 MG/DL (0.60-1.30) Test 11/03/16 11/03/16 01:25 07:50 White Blood Count 2.5 TH/MM3 (4.0-11.0) Red Blood Count 2.24 MIL/MM3 (4.50-5.90) Hemoglobin 7.4 GM/DL 9.0 GM/DL (13.0-17.0) (13.0-17.0) Hematocrit 21.7 % 26.6 % (39.0-51.0) (39.0-51.0) Platelet Count 20 TH/MM3 (150-450) Neutrophils (%) (Auto) 76.5 % (16.0-70.0) Lymphocytes # (Auto) 0.4 TH/MM3 (1.0-4.8) Platelet Estimate RARE (NORMAL) Imaging Last Impressions Modified Barium Swallow 11/02/16 0000 Signed Impressions: Service Date/Time: October 00:00 - CONCLUSION: Please refer to speech pathology report for complete discussion. Ambrosio Kuo MD Chest CT 11/01/16 0000 Signed Impressions: Service Date/Time: Tuesday, November 01, 2016 18:08 - CONCLUSION: 1. Multiple areas of nodularity scattered throughout both lungs. Within the left upper lobe there is a cavitary lesion as well. Differential diagnostic considerations would include metastatic disease versus an infectious process. I tend to favor the former. 2. 5.9 x 5.0 cm left neck mass partially seen. 3. Small bilateral pleural effusions. Hugo Brandon Jr., MD Head CT 10/31/16 0000 Signed Impressions: Service Date/Time: Monday, October 31, 2016 17:20 - CONCLUSION: No acute findings. The patient has had radiation therapy to the brain and there is a stable hypodensity in the right frontal region. Hugo Goodman MD Chest X-Ray 10/31/16 0000 Signed Impressions: Service Date/Time: Monday, October 31, 2016 23:04 - CONCLUSION: Faint nodular densities overlying each of the lungs. Noncontrast chest CT is recommended. Somewhat narrowed trachea. Myron Yuan MD PE at Discharge GENERAL: Well-developed fair-nourished. In no acute distress. SKIN: Warm and dry. No lesions noted. HEENT: Normocephalic. Pupils equal and round. Mucous membranes pink and moist. Left neck swelling. CARDIOVASCULAR: Regular rate and rhythm. No murmur appreciated. RESPIRATORY: No accessory muscle use. Clear to auscultation. Breath sounds equal bilaterally. GASTROINTESTINAL: Abdomen soft, non-tender, nondistended. Bowel sounds x4. PEG tube in place. MUSCULOSKELETAL: No obvious deformities. No clubbing or cyanosis. No edema. NEUROLOGICAL: Awake and alert. No focal neurological deficits. Moves upper and lower extremities spontaneously. Normal speech. PSYCHIATRIC: Appropriate mood and affect; insight and judgment normal. Pt update on day of discharge Discussed with ID and hematology who contacted pulmonology. Pulmonology wants to hold off on bronchoscopy at this time and complete course of antibiotics and have follow-up imaging done as outpatient. Discussed with the patient who is agreeable for this plan and wants to go home today. Discussed with case management to arrange for home health for tube feedings. Hospital Course Mr. 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 The patient is being treated by Dr. Jorge Gilbert oncologist and Dr. Dominic Guthrie radiation oncologist. He has no primary care physician. A PEG tube was placed 3 weeks ago but this has not been used despite patients inability to eat or drink for the past few days. Squamous cell carcinoma of the left neck with unknown primary - Consulted medical and radiation oncology - continue home analgesic regimen - Evaluated by speech therapy with modified barium swallow, cleared for pured diet. Altered mental status Head CT with no acute findings; stable hypodensity in right frontal region noted - Improved. Most likely due to dehydration since patient improved with IV fluids. Pulmonary lesions Initial chest x-ray with a nodular densities overlying both lungs with chest CT recommended. Chest CT showed multiple areas of nodularity scattered through both lungs with a cavitary lesion in the left upper lobe as well; infection versus metastatic disease in the differential. - Continue on Augmentin, ID is consulted - Pulmonary consulted, reportedly recommends continuing antibiotics and follow- up chest imaging as outpatient. ID and hematology on board with the plan. - Results of imaging and plan discussed with the patient. Anemia, normocytic - suspect secondary to chemotherapy. Symptomatic with fatigue. Hemoglobin decreased to 7.4 was 10.6 on 10/23/2016. - No signs of active bleeding. - Patient's oncologist consulted, ordered transfusion 1 unit PRBC. - Hgb improved after transfusion Thrombocytopenia - Platelet count decreased to 20 from 142,000. Likely due to XRT. - No sign of bleeding. Continue to monitor. - Patient's oncologist consulted. Severe protein calorie malnutrition Albumin 2.5. Weight 42 kg. BMI 14. - consulted immigration guard for assistance with tube feeding recommendations - Case management to arrange for tube feeding at home Pt Condition on Discharge: Stable Discharge Disposition: Disch w/ Home Health Serv Discharge Time: > 30 minutes Discharge Instructions DIET: Follow Instructions for: On Tube Feeding, Pureed Diet Speech Therapy-Diet Recommends: Pureed, [place] Thickened Liquids Additional Diet Instructions: Jevity 1.5 at 60 miles per hour Activities you can perform: Regular-No Restrictions Follow up Referrals: Infectious Disease - 10 Days with Elmira Lebron MD Oncology - 1 Week with Jorge Gilbert MD Pulmonology - 10 Days with Oracio Cuevas MD New Medications: Amoxicillin-Clavulanate (Amoxicillin-Clavulanate) 875-125 mg Tab 875 MG PO Q12HR Infection #12 TAB Continued Medications: Alprazolam (Alprazolam) 0.25 Mg Tab 0.25 MG PO Q4H PRN ANXIETY Ref 0 TAB Dexamethasone (Dexamethasone) 2 Mg Tab 2 MG PO DAILY #30 Ref 0 TAB Fluconazole (Fluconazole) 100 Mg Tab 100 MG PO DAILY Infection Ref 0 TAB Hydromorphone (Hydromorphone) 2 Mg Tab 2 MG PO Q6H PRN PAIN Ref 0 TAB Morphine Sulfate CR (Morphine Sulfate CR) 15 Mg Tab 30 MG PO BID Omeprazole (Omeprazole) 20 Mg Tab 20 MG PO DAILY #30 Ref 0 TAB Additional Information Discussed with Dr. Spangler. Clinton Guardado Nov 03, 2016 15:23
--- NOTE | 2016-11-08 09:52 | MD ---
cc: Oracio COREAS ADMISSION DATE: 11/02/2016 DISCHARGE DATE: 11/03/2016 BRIEF HISTORY AND HOSPITAL COURSE Mr. Long is a 66-year-old white male recently diagnosed with head and neck squamous cell cancer, primary not clear, who presented with confusion. He has been a heavy smoker and also a heavy drinker most of his adult life, but has quit both of those within the last year. He presented with confusion that cleared completely during the hospital stay. As part of his evaluation a chest x-ray revealed some new abnormalities and a CT scan was done which confirmed the presence of multiple areas of irregular nodular densities with one slightly cavitary lesion in the left upper lobe. The patient has had some swallowing difficulty. The question was whether or not he was aspirating, whether or not he developed metastatic disease. Lab was remarkable for a low platelet counts in the 20,000 range. The patient is clinically stable. No respiratory difficulty and therefore being considered for discharge. I spoke to both Infectious Disease and oncology. It is not clear based on the CT scan alone whether or not he has an infection but is certainly suspicious for that and possibly aspiration. After thoroughly reviewing the options with Mr. Long we are going to send him home on Augmentin for the next 14 days and then I will see him back in the office and will do a follow-up scan. If these areas are clearing this is probably an infection, probably aspiration. He does have a PEG tube in place. However, if the nodularity is not improving he certainly could have metastatic disease and will have to consider some type of a biopsy, but hopefully his platelet counts would be better at that point as well. Dr. Gilbert is in agreement with this plan as is Dr. Ahumada and the patient understands that he must see Dr. Gilbert and I back in follow-up over the next several weeks for further review. MD ROSSANA Wei/GRAHAM /2:51 PM /9:42 AM
== END 2016-11-03 16:37 | disposition home health service (06) | DRG 682 ==
LOC: NEPC 16:06 → NEDA 18:13 → NEDH 22:51 → NEPHCDU 11-01 11:54 → OBSVTOIN 11-02 09:41
PROVIDERS: ADMIT Family Medicine; ATTEND Family Medicine
PROC: 30233N1 Transfusion of Nonautologous Red Blood Cells into Peripheral Vein, Percutaneous Approach (ICD-10-PCS; principal; 2016-11-02)
DX: N17.9 Acute kidney failure, unspecified (principal); J69.0 Pneumonitis due to inhalation of food and vomit; R41.82 Altered mental status, unspecified; C78.02 Secondary malignant neoplasm of left lung; C78.01 Secondary malignant neoplasm of right lung; C79.89 Secondary malignant neoplasm of other specified sites; D69.59 Other secondary thrombocytopenia; R62.7 Adult failure to thrive; E44.0 Moderate protein-calorie malnutrition; Z68.1 Body mass index [BMI] 19.9 or less, adult; E87.1 Hypo-osmolality and hyponatremia; E86.0 Dehydration; C80.1 Malignant (primary) neoplasm, unspecified; J44.9 Chronic obstructive pulmonary disease, unspecified; D64.81 Anemia due to antineoplastic chemotherapy; Z93.1 Gastrostomy status; E87.6 Hypokalemia; F17.200 Nicotine dependence, unspecified, uncomplicated; G89.29 Other chronic pain; M54.2 Cervicalgia; R19.7 Diarrhea, unspecified; T45.1X5A Adverse effect of antineoplastic and immunosuppressive drugs, initial encounter; R13.10 Dysphagia, unspecified; F32.9 Major depressive disorder, single episode, unspecified; F41.9 Anxiety disorder, unspecified; Z80.1 Family history of malignant neoplasm of trachea, bronchus and lung; Z82.49 Family history of ischemic heart disease and other diseases of the circulatory system; Z51.5 Encounter for palliative care; Z66 Do not resuscitate; Y84.2 Radiological procedure and radiotherapy as the cause of abnormal reaction of the patient, or of later complication, without mention of misadventure at the time of the procedure
CPT/HCPCS: 36430; 70450; 71010; 71250; 74230; 80048; 80053; 81001; 82948; 83605; 84145; 85014; 85018; 85025; 85027; 85610; 85730; 86850; 86900; 86901; 86920; 87040; 93005; 96360; G0378; G8987-GP; G8988-GP; G8996-GN; G8997-GN; G8998-GN; J1642; J1956; J3480; J7030; J8540; P9016

== ENCOUNTER 2016-11-21 12:07 | Inpatient (IN) | payer OTHER ==
[~2016-11-21] VITALS: Ht 162.6 cm; Wt 44.2 kg
[2016-11-21] VITALS (7 sets, daily range): BP systolic 87–110; BP diastolic 45–56; PULSE 84–97; RESP 14–23; TEMP 96.6–97.6; O2SAT 94–100
[~2016-11-21 12:07] MED LIST changes: +ALPR0.25 PO; +AMOX875T2 PO; +FLUC100T2 PO
--- NOTE | 2016-11-21 12:14 | PD ---
Physical Exam Time Seen by Provider: 12:09 Narrative 66yo M presents w/ fusion operator c/o fall at home yesterday. Officer Lieutenant found him on floor at home. Currently on radiation on chemo for thyroid cancer. Denies anticoagulants. Says he's been acting "loopy." Wound to top of head and is only known injury. Denies vomiting. VS reviewed. Patient seen in triage. Awaiting bed placement. [facility] Supervised Visit with SHONDA: Hannah Chau November 21, 2016 12:14
[2016-11-21] MEDS ORDERED: SODIUM CHLOR 0.9% 1000 ML INJ 1,000 ML IV ONE ×2 (12:27→17:00)
--- NOTE | 2016-11-21 12:35 | PD ---
HPI Chief Complaint: Fall Time Seen by Provider: 12:35 Travel History International Travel<30 days: No Contact w/Intl Traveler<30days: No Traveled to known affect area: No History of Present Illness HPI Patient is a 66-year-old male brought in by caregiver for evaluation after fall that he sustained yesterday. Fall was unwitnessed, patient was found on the floor with a head contusion. Caregiver denies any behavioral changes. Patient is currently being treated for thyroid cancer undergoing chemotherapy and radiation. Patient denies any complaints today but had a headache yesterday and reported neck pain. Per caregivers report patient was not on the floor for very long and when she found him he was on his knees. Patient is very much against being in the hospital and caregiver feels as if he may be denying complaints because of this. Caregiver reports that patient's blood pressure normally runs low. Past medical history significant for thyroid cancer, GERD. Patient is on several pain medications. He is followed by Dr. daniel his oncologist. He also has an appointment with Dr. Jasvir Cuevas on . PFSH Past Medical History Asthma: No Blood Disorders: No Heart Rhythm Problems: No Cancer: Yes (NECK CANCER, HX OF THROAT CANCER) Cardiovascular Problems: No High Cholesterol: No Chemotherapy: Yes Chest Pain: No Congestive Heart Failure: No COPD: No Diabetes: No Diminished Hearing: No Endocrine: No GERD: Yes Genitourinary: No Hepatitis: No Hiatal Hernia: No Immune Disorder: No Musculoskeletal: No Neurologic: No Psychiatric: No Reproductive: No Respiratory: No Immunizations Current: Yes Radiation Therapy: Yes Sleep Apnea: No Thyroid Disease: No ?: Not Past Surgical History Abdominal Surgery: No AICD: No Body Medical Devices: none per pt Cardiac Surgery: No Ear Surgery: Yes (left ear) Endocrine Surgery: No Eye Surgery: No Genitourinary Surgery: No Gynecologic Surgery: No Joint Replacement: No Oral Surgery: No Pacemaker: No Thoracic Surgery: No Other Surgery: Yes (LT THROAT FOR CANCER) Social History Alcohol Use: No Tobacco Use: Yes Substance Use: No Allergies-Medications (Allergen,Severity, Reaction): Coded Allergies: No Known Allergies (Unverified , 10/02/16) Reported Meds & Prescriptions Reported Meds & Active Scripts Active Reported Hydrocodone-Acetaminophen 7.5-325 mg Tab 1 Tab PO Q4H PRN Senokot (Sennosides) 8.6 Mg Tab 8.6 Mg PO DAILY Alprazolam 0.25 Mg Tab 0.25 Mg PO Q4H PRN Omeprazole 20 Mg Tab 20 Mg PO DAILY Morphine Sulfate CR (Morphine Sulfate) 15 Mg Tab 60 Mg PO BID Hydromorphone (Hydromorphone HCl) 2 Mg Tab 2 Mg PO Q6H PRN Review of Systems Except as stated in HPI: all other systems reviewed are Neg General / Constitutional: No: Fever, Chills HENT: Positive: Headaches, Neck Pain Cardiovascular: No: Chest Pain or Discomfort Gastrointestinal: Positive: Loss of Appetite, No: Nausea, Vomiting, Abdominal Pain Genitourinary: No: Dysuria Musculoskeletal: No: Myalgias Neurologic: Positive: Weakness, Syncope (uncertain), Headache, No: Change in Mentation, Slurred Speech Physical Exam Narrative GENERAL: Cachectic male. Appears older than stated age. SKIN: Focused skin assessment warm/dry. Abrasion to anterior scalp HEAD: Atraumatic. Normocephalic. EYES: Pupils equal and round. No scleral icterus. No injection or drainage. ENT: No nasal bleeding or discharge. Mucous membranes pink and moist. NECK: Trachea midline. No JVD. CARDIOVASCULAR: Regular rate and rhythm. No murmur appreciated. RESPIRATORY: No accessory muscle use. Diminished in bases with coarse breath sounds. GASTROINTESTINAL: Abdomen soft, non-tender, nondistended. Hepatic and splenic margins not palpable. Feeding tube in place. Positive bowel sounds. MUSCULOSKELETAL: No obvious deformities. No clubbing. No cyanosis. No edema. NEUROLOGICAL: Awake and alert. No obvious cranial nerve deficits. Motor grossly within normal limits. Normal speech. PSYCHIATRIC: Appropriate mood and flat affect; insight and judgment normal. Data Data Last Documented VS Vital Signs Date Time Temp Pulse Resp B/P Pulse Ox O2 Delivery O2 Flow Rate FiO2 11/21/16 16:28 84 22 98/48 96 Nasal Cannula 2 11/21/16 13:57 85 11/21/16 12:11 97.6 Orders Electrocardiogram (11/21/16 12:27) Complete Blood Count With Diff (11/21/16 12:27) Comprehensive Metabolic Panel (11/21/16 12:27) Prothrombin Time / Inr (Pt) (11/21/16 12:27) Act Partial Throm Time (Ptt) (11/21/16 12:27) Lactic Acid Sepsis Protocol (11/21/16 12:27) Magnesium (Mg) (11/21/16 12:27) Ckmb (Isoenzyme) Profile (11/21/16 12:) Troponin I (11/21/16 12:) Urinalysis - C+S If Indicated (11/21/16 12:27) Blood Culture (11/21/16 12:27) Chest, Single Ap (11/21/16 12:) Blood Glucose (11/21/16 12:) Ecg Monitoring (11/21/16 12:) Iv Access Insert/Monitor (11/21/16 12:) Oximetry (11/21/16 12:) Oxygen Administration (11/21/16 12:) Ct Brain W/O Iv Contrast(Rout) (11/21/16 12:27) Sodium Chlor 0.9% 1000 Ml Inj (Ns 1000 M (11/21/16 12:27) Ct Cerv Spine W/O Contrast (11/21/16 ) Ct Thorax/ Chest W Iv Contrast (11/21/16 ) Ct Abd/Pel W Iv Contrast(Rout) (11/21/16 ) Magnesium Sulfate 1 Gm Premix (Magnesium (11/21/16 14:30) Vancomycin Inj (Vancomycin Inj) (11/21/16 14:52) Piperacil-Tazo 4.5 Gm Premix (Zosyn 4.5 (11/21/16 14:52) Urine Culture (11/21/16 14:42) Iohexol 350 Inj (Omnipaque 350 Inj) (11/21/16 15:37) Admit Order (Ed Use Only) (11/21/16 16:50) Labs Laboratory Tests Test 11/21/16 11/21/16 13:20 14:42 White Blood Count 35.2 TH/MM3 Red Blood Count 2.66 MIL/MM3 Hemoglobin 8.5 GM/DL Hematocrit 25.0 % Mean Corpuscular Volume 93.9 FL Mean Corpuscular Hemoglobin 31.8 PG Mean Corpuscular Hemoglobin 33.9 % Concent Red Cell Distribution Width 27.6 % Platelet Count 228 TH/MM3 Mean Platelet Volume 7.6 FL Neutrophils (%) (Auto) 85.6 % Lymphocytes (%) (Auto) 3.9 % Monocytes (%) (Auto) 10.0 % Eosinophils (%) (Auto) 0.2 % Basophils (%) (Auto) 0.3 % Neutrophils # (Auto) 30.1 TH/MM3 Lymphocytes # (Auto) 1.4 TH/MM3 Monocytes # (Auto) 3.5 TH/MM3 Eosinophils # (Auto) 0.1 TH/MM3 Basophils # (Auto) 0.1 TH/MM3 CBC Comment AUTO DIFF Differential Total Cells 100 Counted Neutrophils % (Manual) 44 % Band Neutrophils % 40 % Lymphocytes % 3 % Monocytes % 5 % Basophils % 1 % Neutrophils # (Manual) 32.0 TH/MM3 Metamyelocytes 2 % Myelocytes 5 % Nucleated Red Blood Cells 1 /100 WBC Differential Comment FINAL DIFF MANUAL Toxic Granulation 2+ Platelet Estimate NORMAL Platelet Morphology Comment NORMAL Sodium Level 134 MEQ/L Potassium Level 3.9 MEQ/L Chloride Level 96 MEQ/L Carbon Dioxide Level 32.4 MEQ/L Anion Gap 6 MEQ/L Blood Urea Nitrogen 15 MG/DL Creatinine 0.74 MG/DL Estimat Glomerular Filtration 106 ML/MIN Rate Random Glucose 83 MG/DL Lactic Acid Level 1.3 mmol/L Calcium Level 9.2 MG/DL Magnesium Level 1.4 MG/DL Total Bilirubin 0.3 MG/DL Aspartate Amino Transf 21 U/L (AST/SGOT) Alanine Aminotransferase 14 U/L (ALT/SGPT) Alkaline Phosphatase 136 U/L Total Creatine Kinase 43 U/L Troponin I LESS THAN 0.02 NG/ML Total Protein 6.2 GM/DL Albumin 2.3 GM/DL Urine Color YELLOW Urine Turbidity CLEAR Urine pH 7.0 Urine Specific [place] 1.019 Urine Protein 30 mg/dL Urine Glucose (UA) NEG mg/dL Urine Ketones NEG mg/dL Urine Occult Blood NEG Urine Nitrite NEG Urine Bilirubin NEG Urine Urobilinogen 2.0 MG/DL Urine Leukocyte Esterase NEG Urine RBC 19 /hpf Urine WBC 4 /hpf Urine Bacteria RARE /hpf Urine Hyaline Casts 3 /lpf Urine Mucus FEW /lpf Microscopic Urinalysis Comment CATH-CULTURE IND MDM Medical Decision Making Medical Screen Exam Complete: Yes Emergency Medical Condition: Yes Interpretation(s) Vital Signs Date Time Temp Pulse Resp B/P Pulse Ox O2 Delivery O2 Flow Rate FiO2 11/21/16 12:11 97.6 97 14 89/55 95 Differential Diagnosis Electrolyte abnormality versus cardiac arrhythmia versus UTI versus sepsis versus syncope hypotension versus medication side effects versus hemorrhage versus other Narrative Course Patient is a 66-year-old male brought in by caregiver for evaluation after fall yesterday. Patient has an abrasion to his anterior scalp, he appears chronically ill. Patient's BP is low and per caregivers report this is normal for him likely secondary to narcotic pain medications however infectious etiology cannot be excluded. Patient does not want to be in the hospital and is denying any complaints at this time. Labs and imaging ordered and pending. IV access established, patient placed on telemetry monitoring and continuous pulse oximetry. Caregivers at bedside. CBC with a white count of 35.2 with a left shift of 85.6, 40% bands Patient started on Zosyn and vancomycin empirically. Chemistry sodium 134, carbon dioxide 32.4, mag 1.4, troponin less than 0.02. Lactic acid 1.3 Patient was unable to urinate, a 14 [place] coud catheter was placed, approximately 100 cc of urine was drained. UA sent. Patient's O2 sats on room air within the upper 80s, patient is on O2 at 2 L with sats in the mid 90s. CT scan of the chest, abdomen, pelvis ordered and pending. CT scan of the chest shows a cavitary lesion that is 11 mm in size in the left upper lobe, there is scattered parenchymal densities in the right upper, middle , and lower lobes. Infection versus neoplasm? CT scan of the abdomen and pelvis shows a low density lesion in the small bowel in the left mid abdomen, could represent a new mass. Urinalysis with 19 red blood cells, rare bacteria, mucus, reflex culture pending. Sepsis Criteria SIRS Criteria (2 or more): Heart rate over 90, WBC > 46623, < 4000 or > 10% bands Sepsis Criteria (SIRS+source): Infect source susp/known Severe Sepsis (+one): Hypotension Criteria Outcome: Meets severe sepsis criteria Diagnosis Primary Impression: Sepsis Qualified Code: A41.9 - Sepsis, due to unspecified organism Additional Impression: Cavitary lesion of lung Admitting Information Admitting Physician Requests: Admit Condition: Chantal Scott November 21, 2016 12:35
[2016-11-21] MEDS ORDERED: SENO8.6T5 PO (13:02)
[2016-11-21] MEDS ORDERED: HYDR-3580 PO (13:02)
--- NOTE | 2016-11-21 13:13 | RADRPT ---
EXAM DATE/TIME: 11/21/2016 12:51 [facility] COMPARISON: CT BRAIN W/O CONTRAST, October 31, 2016, 17:20. INDICATIONS : Fell at home yesterday change in mental status the last three weeks. RADIATION DOSE: 56.37 CTDIvol (mGy) MEDICAL HISTORY : Neck cancer SURGICAL HISTORY : Gastric tube ENCOUNTER: Initial ACUITY: 1 day PAIN SCALE: 0/10 LOCATION: cranial TECHNIQUE: Multiple contiguous axial images were obtained of the head. Using automated exposure control and adj ustment of the mA and/or kV according to patient size, radiation dose was kept as low as reasonably a chievable to obtain optimal diagnostic quality images. FINDINGS: CEREBRUM: Stable low density region in the right frontoparietal lobe. The ventricles are normal for age. No ev idence of midline shift, mass lesion, hemorrhage or acute infarction. No extra-axial fluid collectio ns are seen. POSTERIOR FOSSA: The cerebellum and brainstem are intact. The 4th ventricle is midline. The cerebellopontine angle i s unremarkable. EXTRACRANIAL: The visualized portion of the orbits is intact. SKULL: The calvaria is intact. No evidence of skull fracture. CONCLUSION: 1. Stable low-density region in the right frontoparietal lobe. 2. No significant change. 3. No hemorrhage. Raza Valdovinos MD on November 21, 2016 at 13:08 Board Certified Radiologist. This report was verified electronically.
--- NOTE | 2016-11-21 13:27 | RADRPT ---
EXAM DATE/TIME: 11/21/2016 13:00 [facility] COMPARISON: CHEST SINGLE AP, October 31, 2016, 23:04. INDICATIONS : Weakness, short of breath. MEDICAL HISTORY : Carcinoma, esophageal. SURGICAL HISTORY : Infusaport placement ENCOUNTER: Initial ACUITY: 1 day PAIN SCORE: 0/10 LOCATION: Bilateral chest FINDINGS: Single AP view of the chest. Right-sided [id number] remains in place. Nodular density is in the up per lungs bilaterally are unchanged. No evidence of pulmonary consolidation. No pleural effusion or p neumothorax. CONCLUSION: Bilateral upper lung nodular densities grossly unchanged. Reg Perez MD on November 21, 2016 at 13:18 Board Certified Radiologist. This report was verified electronically.
[2016-11-21 13:45] LABS: AUTOMATED NEUTROPHIL # 30.1 TH/MM3 (1.8-7.7); BASOPHIL # 0.1 TH/MM3 (0-0.2); BASOPHIL % 0.3 % (0.0-2.0); EOSINOPHIL # 0.1 TH/MM3 (0-0.4); EOSINOPHIL % 0.2 % (0.0-4.0); LYMPH % 3.9 % (9.0-44.0); LYMPHOCYTE # 1.4 TH/MM3 (1.0-4.8); MEAN CELL VOLUME 93.9 FL (80.0-100.0); MEAN CORPUSCULAR HEMOGLOBIN 31.8 PG (27.0-34.0); MEAN CORPUSCULAR HGB CONC 33.9 % (32.0-36.0); NEUT % 85.6 % (16.0-70.0); PLATELET COUNT 228 TH/MM3 (150-450); RED BLOOD COUNT 2.66 MIL/MM3 (4.50-5.90); RED CELL DISTRIBUTION WIDTH 27.6 % (11.6-17.2); WHITE BLOOD COUNT 35.2 TH/MM3 (4.0-11.0)
--- NOTE | 2016-11-21 13:47 | RADRPT ---
EXAM DATE/TIME: 11/21/2016 12:53 [facility] COMPARISON: No previous studies available for comparison. INDICATIONS : Fell yesterday change in mental status for the last three weeks RADIATION DOSE: 30.05 CTDIvol (mGy) MEDICAL HISTORY : Neck canceer SURGICAL HISTORY : Gastric tube ENCOUNTER: Initial ACUITY: 1 day PAIN SCALE: 0/10 LOCATION: neck TECHNIQUE: Volumetric scanning of the cervical spine was performed. Multiplanar reconstructions in the sagittal, coronal and oblique axial planes were performed. Using automated exposure control and adjustment o f the mA and/or kV according to patient size, radiation dose was kept as low as reasonably achievable to obtain optimal diagnostic quality images. FINDINGS: VERTEBRAE: Normal vertebral body height. ALIGNMENT: Minimal retrolisthesis C3 on C4 and minimal anterolisthesis C4 on C5. Prominent degenerative disc dis ease at C3-4, C5-6 and C6-7 levels. C2-C3: The bony spinal canal is normal in size. No evidence of disc bulge or herniation. The neural forami na are bilaterally patent. C3-C4: Broad-based protrusion abuts the thecal sac without canal stenosis. Moderate bilateral neural frontal narrowing greater on the left. C4-C5: Mild generalized posterior disc osteophyte complex. Hypertrophic facet of the left. Moderate narrowin g of the left neuroforamen and mild right-sided neural foraminal narrowing. No canal stenosis. C5-C6: Mild broad-based protrusion and moderate bilateral neural foraminal narrowing. No canal stenosis. Th e neural foramina are bilaterally patent. C6-C7: The bony spinal canal is normal in size. No evidence of disc bulge or herniation. The neural forami na are bilaterally patent. C7-T1: The bony spinal canal is normal in size. No evidence of disc bulge or herniation. The neural forami na are bilaterally patent. CONCLUSION: 1. Large cystic and solid mass in the left neck could be parotid in origin. 2. Multilevel degenerative changes and degenerative subluxations as described above. 3. No fracture. Raza Valdovinos MD on November 21, 2016 at 13:41 Board Certified Radiologist. This report was verified electronically.
[2016-11-21 13:48] LABS: HEMO FLAGS AUTO DIFF
[2016-11-21 14:11] LABS: ALT (GPT) 14 U/L (12-78); ANION GAP 6 MEQ/L (5-15); AST (GOT) 21 U/L (15-37); BICARBONATE 32.4 MEQ/L (21.0-32.0); BLOOD UREA NITROGEN 15 MG/DL (7-18); CHLORIDE 96 MEQ/L (98-107); GLOMERULAR FILTRATION RATE 106 ML/MIN (>89); MAGNESIUM 1.4 MG/DL (1.5-2.5); POTASSIUM 3.9 MEQ/L (3.5-5.1); SODIUM (NA) 134 MEQ/L (136-145)
[2016-11-21 14:14] LABS: ALKALINE PHOSPHATASE 136 U/L (45-117); TOTAL BILIRUBIN ADULT 0.3 MG/DL (0.2-1.0)
[2016-11-21 14:15] LABS: CREATINE KINASE 43 U/L (39-308)
[2016-11-21 14:16] LABS: BANDS 40 % (0-6); BASOPHILS 1 % (0-2); CORRECTED NUCLEATED RBC 1 /100 WBC (0-0); METAMYELOCYTES 2 % (0-1); MYELOCYTES 5 % (0-0); PLATELET ESTIMATE SMEAR NORMAL (NORMAL); PLATELET MORPHOLOGY NORMAL (NORMAL); POLYS (SEG NEUTROPHILS) 44 % (16-70); SCAN/DIFF FINAL DIFF MANUAL; TOXIC GRANULATION 2+ (NORMAL); WBC DIFF SAMPLE 100
[2016-11-21] MEDS ORDERED: MAGNESIUM SULFATE 1 GM PREMIX 100 ML IV ONE (14:30)
[2016-11-21] MEDS ORDERED: PIPERACIL-TAZO 4.5 GM PREMIX 100 ML IV STA (14:52)
[2016-11-21] MEDS ORDERED: VANCOMYCIN INJ 1,000 MG in SODIUM CHLOR 0.9% 250 ML INJ 250 ML IV STA (14:52)
[2016-11-21 15:09] LABS: BACTERIA, URINE RARE /hpf; BLOOD, URINE NEG (NEG); GLUCOSE,URINE NEG (NEG); HYALINE CAST, URINE 3 /lpf (RARE); KETONE, URINE NEG (NEG); MUCUS URINE FEW /lpf (OCC); NITRITE,URINE NEG (NEG); URINE COLOR YELLOW (YELLW/STRAW)
[2016-11-21 15:13] LABS: COMMENT (UR) CATH-CULTURE IND; CULTURE IF INDICATED CATH CULTURE IND
[2016-11-21] MEDS ORDERED: IOHEXOL 350 MG/ML 10 ML VIAL (for RAD DIAG) IV ONE (15:37)
--- NOTE | 2016-11-21 16:09 | RADRPT ---
EXAM DATE/TIME: 11/21/2016 15:24 [facility] COMPARISON: No previous studies available for comparison. INDICATIONS : Fever; abdomen pain. IV CONTRAST: 95 cc Omnipaque 350 (iohexol) IV ; Cumulative dose for multiple exams. ORAL CONTRAST: No oral contrast ingested. RADIATION DOSE: 5.6 CTDIvol (mGy) ; Combined studies - Thorax/Abdomen/Pelvis MEDICAL HISTORY : Carcinoma, thyroid. Gastroesophageal reflux disease. SURGICAL HISTORY : None. ENCOUNTER: Initial ACUITY: 1 day PAIN SCALE: 5/10 LOCATION: Bilateral abdomen TECHNIQUE: Volumetric scanning of the abdomen and pelvis was performed. Using automated exposure control and ad justment of the mA and/or kV according to patient size, radiation dose was kept as low as reasonably achievable to obtain optimal diagnostic quality images. FINDINGS: LOWER LUNGS: The visualized lower lungs are clear. LIVER: Homogeneous density without lesion. There is no dilation of the biliary tree. No calcified gallston es. SPLEEN: Normal size without lesion. PANCREAS: Within normal limits. KIDNEYS: Normal in size and shape. There is no mass, stone or hydronephrosis. Left renal cyst. ADRENAL GLANDS: Within normal limits. VASCULAR: There is no aortic aneurysm. Diffuse atherosclerotic changes. BOWEL/MESENTERY: The stomach and colon demonstrate no acute abnormality. There is a low-density intraluminal lesion in the small bowel the left midabdomen as marked on images. Percutaneous gastrostomy tube. There is no free intraperitoneal air or fluid. ABDOMINAL WALL: Within normal limits. RETROPERITONEUM: There is no lymphadenopathy. BLADDER: No wall thickening or mass. Ruano catheter. There is minimal air, likely iatrogenic. REPRODUCTIVE: Within normal limits. INGUINAL: There is no lymphadenopathy or hernia. MUSCULOSKELETAL: Within normal limits for patient age. CONCLUSION: 1. Percutaneous gastrostomy tube. 2. Left sided renal cyst. 3. Intraluminal low density lesion in the small bowel in the left midabdomen could be a small mass. Raza Valdovinos MD on November 21, 2016 at 16:02 Board Certified Radiologist. This report was verified electronically.
--- NOTE | 2016-11-21 16:13 | RADRPT ---
EXAM DATE/TIME: 11/21/2016 15:24 [facility] COMPARISON: CT THORAX W/O CONTRAST, November 01, 2016, 18:08. INDICATIONS : Fever; chest pain. IV CONTRAST: 95 cc Omnipaque 350 (iohexol) IV ; Cumulative dose for multiple exams. RADIATION DOSE: 5.6 CTDIvol (mGy) ; Combined studies - Thorax/Abdomen/Pelvis MEDICAL HISTORY : Carcinoma, thyroid. Gastroesophageal reflux disease. SURGICAL HISTORY : None. ENCOUNTER: Initial ACUITY: 1 day PAIN SCALE: 4/10 LOCATION: Bilateral chest TECHNIQUE: Volumetric scanning of the chest was performed. Using automated exposure control and adjustment of t he mA and/or kV according to patient size, radiation dose was kept as low as reasonably achievable to obtain optimal diagnostic quality images. FINDINGS: LUNGS: There is paraseptal emphysema. Scattered parenchymal densities are seen within the posterior right up per lobe and right upper lobe laterally. Cavitary lesion in the left upper lobe measures 11 mm. A few other scattered parenchymal densities are seen within the lower lobes. Some small scattered nodular densities are seen in the right middle lobe. PLEURA: There is no pleural thickening or pleural effusion. MEDIASTINUM: The heart and great vessels demonstrate no acute abnormality. There is no mediastinal or hilar lymph adenopathy. AXILLAE: Within normal limits. No lymphadenopathy. SKELETAL: Within normal limits for patient age. MISCELLANEOUS: The visualized upper abdominal organs demonstrate no acute abnormality. Right-sided [id number] cat heter with tip in the cavoatrial junction. Left neck mass not well-seen. CONCLUSION: 1. 11 mm cavitary lesion left upper lobe. 2. Scattered parenchymal densities throughout the right upper lobe, right middle and to lesser degree the lower lobes, could be infectious or neoplastic. 3. Left neck mass not well seen. 1. Raza Valdovinos MD on November 21, 2016 at 16:07 Board Certified Radiologist. This report was verified electronically.
--- NOTE | 2016-11-21 18:13 | HHI.HP ---
HPI Service [facility] Primary Care Physician No Primary Care Physician Admission Diagnosis lung mass, sepsis Diagnoses: Chief Complaint: Status post fall, generalized weakness Travel History International Travel<30 Days: No Contact w/Intl Traveler <30 Da: No Traveled to Known Affected Are: No Sepsis Criteria SIRS Criteria (2 or more): Heart rate over 90, WBC > 76476, < 4000 or > 10% bands Sepsis Criteria (SIRS+source): Infect source susp/known Severe Sepsis (+one): Hypotension Criteria Outcome: Meets SIRS criteria, Meets sepsis criteria, Meets severe sepsis criteria History of Present Illness Patient is a 66-year-old old with primary medical history of 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 As per records, fall was unwitnessed, patient was found on the floor with a head contusion. Patient is currently being treated for thyroid cancer undergoing chemotherapy and radiation. Patient seen and examined. Requesting to go home. Poor historian but states that he remembered he had a fall yesterday denies any pain or discomfort. Denies SOB/ dyspnea. Denies chest pain, palpitations, headaches, dizziness. Denies fevers, chills, n/ v/d. Denies hematuria, dysuria. Patient states he has urged urinate since the Ruano catheter has been placed. Discussed with patient importance of staying at the hospital for further treatment. Patient was recently hospitalized 10/31/16, for altered mental status, dehydration, hypokalemia. He was discharged 11/03/16. He has been following with his oncologist Dr. Guthrie and he is also due to be seen by Dr. Cuevas. Review of Systems ROS Limitations: Poor Historian Except as stated in HPI: all other systems reviewed are Neg Past Family Social History Past Medical History Squamous cell carcinoma left neck discovered in June 2016 Undiagnosed COPD Past Surgical History PEG tube Left neck tumor resection - 9 yrs ago Reported Medications Reported Meds & Active Scripts Active Reported Hydrocodone-Acetaminophen 7.5-325 mg Tab 1 Tab PO Q4H PRN Senokot (Sennosides) 8.6 Mg Tab 8.6 Mg PO DAILY Alprazolam 0.25 Mg Tab 0.25 Mg PO Q4H PRN Omeprazole 20 Mg Tab 20 Mg PO DAILY Morphine Sulfate CR (Morphine Sulfate) 15 Mg Tab 60 Mg PO BID Hydromorphone (Hydromorphone HCl) 2 Mg Tab 2 Mg PO Q6H PRN Allergies: Coded Allergies: No Known Allergies (Unverified , 10/02/16) Active Ordered Medications Current Medications Medications (Trade) Dose Ordered Sig/[place] Route Start Time Stop Time Status Last Admin (NS 1000 ml Inj) 1,000 ml @ 999 mls/hr BOLUS ONCE IV 11/21/16 17:00 11/21/16 18:00 11/21/16 17:07 Family History mom's family- heart attack cancer - in dad's family dad has lung cance Social History Patient lives with his . Reports occasional alcohol use Denies illicit drug use Current smoker, smokes since he is 19 years old, about a pack a day Physical Exam Vital Signs Vital Signs Date Time Temp Pulse Resp B/P Pulse Ox O2 Delivery O2 Flow Rate FiO2 11/21/16 16:28 84 22 98/48 96 Nasal Cannula 2 11/21/16 15:38 90 18 92/54 98 Nasal Cannula 2 11/21/16 15:00 86 20 87/45 98 Nasal Cannula 2 11/21/16 14:45 88 20 103/51 94 Nasal Cannula 2 11/21/16 13:57 93 Nasal Cannula 2 85 11/21/16 12:11 97.6 97 14 89/55 95 Physical Exam GENERAL: This is a thin -appearing, older than stated age, mildly ill appearing SKIN: Warm and dry. Temporal area with abrasion. HEAD: Normocephalic. EYES: Pupils equal round and reactive. No scleral icterus. No injection or drainage. ENT: Nose without bleeding. Throat without erythema. Uvula midline. Airway patent. NECK: Trachea midline. Neck area with erythema/discoloration. Notable mass left neck area. CARDIOVASCULAR: Regular rate and rhythm without murmurs, gallops, or rubs. RESPIRATORY: Diminished bases No wheezes, rales, or rhonchi. GASTROINTESTINAL: Abdomen soft, non-tender, nondistended. PEG in place. : Ruano catheter draining clear, frances urine MUSCULOSKELETAL: Extremities without clubbing, cyanosis, or edema. NEUROLOGICAL: Awake and alert. Oriented to self, place. Moves all extremities weakly. Speech is hoarse. Laboratory Laboratory Tests Test 11/21/16 11/21/16 13:20 14:42 White Blood Count 35.2 Red Blood Count 2.66 Hemoglobin 8.5 Hematocrit 25.0 Mean Corpuscular Volume 93.9 Mean Corpuscular Hemoglobin 31.8 Mean Corpuscular Hemoglobin 33.9 Concent Red Cell Distribution Width 27.6 Platelet Count 228 Mean Platelet Volume 7.6 Neutrophils (%) (Auto) 85.6 Lymphocytes (%) (Auto) 3.9 Monocytes (%) (Auto) 10.0 Eosinophils (%) (Auto) 0.2 Basophils (%) (Auto) 0.3 Neutrophils # (Auto) 30.1 Lymphocytes # (Auto) 1.4 Monocytes # (Auto) 3.5 Eosinophils # (Auto) 0.1 Basophils # (Auto) 0.1 CBC Comment AUTO DIFF Differential Total Cells 100 Counted Neutrophils % (Manual) 44 Band Neutrophils % 40 Lymphocytes % 3 Monocytes % 5 Basophils % 1 Neutrophils # (Manual) 32.0 Metamyelocytes 2 Myelocytes 5 Nucleated Red Blood Cells 1 Differential Comment FINAL DIFF MANUAL Toxic Granulation 2+ Platelet Estimate NORMAL Platelet Morphology Comment NORMAL Sodium Level 134 Potassium Level 3.9 Chloride Level 96 Carbon Dioxide Level 32.4 Anion Gap 6 Blood Urea Nitrogen 15 Creatinine 0.74 Estimat Glomerular Filtration 106 Rate Random Glucose 83 Lactic Acid Level 1.3 Calcium Level 9.2 Magnesium Level 1.4 Total Bilirubin 0.3 Aspartate Amino Transf 21 (AST/SGOT) Alanine Aminotransferase 14 (ALT/SGPT) Alkaline Phosphatase 136 Total Creatine Kinase 43 Troponin I LESS THAN 0.02 Total Protein 6.2 Albumin 2.3 Urine Color YELLOW Urine Turbidity CLEAR Urine pH 7.0 Urine Specific [place] 1.019 Urine Protein 30 Urine Glucose (UA) NEG Urine Ketones NEG Urine Occult Blood NEG Urine Nitrite NEG Urine Bilirubin NEG Urine Urobilinogen 2.0 Urine Leukocyte Esterase NEG Urine RBC 19 Urine WBC 4 Urine Bacteria RARE Urine Hyaline Casts 3 Urine Mucus FEW Microscopic Urinalysis Comment CATH-CULTURE IND Date/Time Procedure Status Source Growth 11/21/16 14:42 Urine Culture Received Urine Catheterized Urine Pending 11/21/16 13:20 Aerobic Blood Culture Received Blood Peripheral Pending 11/21/16 13:20 Anaerobic Blood Culture Received Blood Peripheral Pending Result Diagram: 11/21/16 1320 11/21/16 1320 Imaging Last Impressions Head CT 11/21/16 1227 Signed Impressions: Service Date/Time: Monday, November 21, 2016 12:51 - CONCLUSION: 1. Stable low-density region in the right frontoparietal lobe. 2. No significant change. 3. No hemorrhage. Raza Valdovinos MD Chest X-Ray 11/21/167 Signed Impressions: Service Date/Time: Monday, November 21, 2016 13:00 - CONCLUSION: Bilateral upper lung nodular densities grossly unchanged. Reg Perez MD Chest CT 11/21/16 0000 Signed Impressions: Service Date/Time: Monday, November 21, 2016 15:24 - CONCLUSION: 1. 11 mm cavitary lesion left upper lobe. 2. Scattered parenchymal densities throughout the right upper lobe, right middle and to lesser degree the lower lobes, could be infectious or neoplastic. 3. Left neck mass not well seen. 1. Raza Valdovinos MD Cervical Spine CT 11/21/16 0000 Signed Impressions: Service Date/Time: Monday, November 21, 2016 12:53 - CONCLUSION: 1. Large cystic and solid mass in the left neck could be parotid in origin. 2. Multilevel degenerative changes and degenerative subluxations as described above. 3. No fracture. Raza Valdovinos MD Abdomen/Pelvis CT 11/21/16 0000 Signed Impressions: Service Date/Time: Monday, November 21, 2016 15:24 - CONCLUSION: 1. Percutaneous gastrostomy tube. 2. Left sided renal cyst. 3. Intraluminal low density lesion in the small bowel in the left midabdomen could be a small mass. 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 As per records, fall was unwitnessed, patient was found on the floor with a head contusion. Patient is currently being treated for thyroid cancer undergoing chemotherapy and radiation. Severe sepsis - hypotensive,HR> 90, WBC 35.2 Pulmonary lesions Infectious versus neoplastic - cavitary lesion, suspect Mycobacterium, lung abscess, septic emboli vs malignancy - Chest x-ray showed bilateral upper lung nodular densities grossly unchanged - CT of the chest showed 1. 11 mm cavitary lesion left upper lobe. 2. Scattered parenchymal densities throughout the right upper lobe, right middle and to a lesser degree the lower lobes, could be infectious or neoplastic. 3. Left neck mass not well seen. - CT of the cervical spine showed 1. Large cystic and solid mass in the left neck could be parotid in origin. 2. Multilevel degenerative changes and degenerative subluxations as described above. 3. No fracture. - Patient was given IV vancomycin and Zosyn in the ED. Will start IV antibiotics. - Previously discharged on Augmentin secondary to lung lesions that was found , questionable infectious versus neoplastic. - Consult ID input appreciated - Consult pulmonology input appreciated - Follow up Blood cultures - Follow-up CBC, CMP tomorrow Squamous cell carcinoma of the left neck with unknown primary - Consult oncology. Patient is undergoing radiation chemotherapy. - continue home analgesic regimen Anemia, normocytic normochromic - Maybe secondary to chemotherapy - Hemoglobin 8.5 in hematocrit 25 - Recheck CBC in a.m. and follow trends Hypomagnesemia - Replace magnesium - Check mag levels tomorrow Generalized weakness, status post fall - Physical therapy/ occupational therapy eval and treat DVT prop SCDs Written by Zac Escobar, acting as scribe for Dr. Langley on 11/21/16 at 18:11. This note was transcribed by [email or web address] []. I, Dr. Raza Langley personally performed the history, physical exam, and medical decision making; and confirmed the accuracy of the information in the transcribed note. Authenticated by Dr. Raza Langley on 11/21/16 at 18:21. Code Status Full code Discussed Condition With Patient, nursing, ED attending Physician Certification 2 Midnight Certification Type: Admission for Inpatient Services Order for Inpatient Services The services are ordered in accordance with Medicare regulations or non- Medicare payer requirements, as applicable. In the case of services not specified as inpatient-only, they are appropriately provided as inpatient services in accordance with the 2-midnight benchmark. Estimated LOS (days): 2 days is the estimated time the patient will need to remain in the hospital, assuming treatment plan goals are met and no additional complications. Post-Hospital Plan: Home Health Problem Qualifiers (1) Sepsis: Qualified Code: A41.9 - Sepsis, due to unspecified organism Zac Lock November 21, 2016 18:13 Raza Langley MD November 21, 2016 21:13
[2016-11-21] MEDS ORDERED: ONDANSETRON HCL 4 MG/2 ML VIAL IVP PRN (18:30)
[2016-11-21] MEDS ORDERED: ACETAMINOPHEN 325 MG TAB PO PRN (18:30)
[2016-11-21] MEDS ORDERED: NALOXONE HCL 0.4 MG/ML AMP IV PRN (18:30)
[2016-11-21] MEDS ORDERED: MAGNESIUM HYDROXIDE SUSP 30 ML CUP PO PRN (18:30)
[2016-11-21] MEDS: SODIUM CHLORIDE 0.9% FLUSH 10 ML FLUSH IV FLUSH SCH (20:05)
[2016-11-21] MEDS ORDERED: HYDROmorphone HCL 2 MG TAB PO PRN (21:30)
[2016-11-21] MEDS ORDERED: ALPRAZolam 0.25 MG TAB PO PRN (21:30)
[2016-11-22] VITALS: BP 96/54; PULSE 82; RESP 18; TEMP 97.7; O2SAT 96
[2016-11-22 04:00] VITALS: BP 98/54; PULSE 80; RESP 18; TEMP 97.2; O2SAT 98
--- NOTE | 2016-11-22 06:11 | EKG ---
Date Performed: 11/21/2016 Time Performed: 13:33:23 PTAGE: 66 years EKG: Sinus rhythm LOW QRS VOLTAGE IN EXTREMITY LEADS SEPTAL Q WAVES ABNORMAL ECG PREVIOUS TRACING : 10/31/2016 16.45 Compared to prior tracing no significant change DOCTOR: Du Rivas Interpretating Date/Time 11/22/2016 06:09:28
[2016-11-22 06:59] LABS: AUTOMATED NEUTROPHIL # 24.7 TH/MM3 (1.8-7.7); BASOPHIL # 0.1 TH/MM3 (0-0.2); BASOPHIL % 0.2 % (0.0-2.0); EOSINOPHIL % 0.1 % (0.0-4.0); HEMATOCRIT 25.2 % (39.0-51.0); LYMPH % 2.4 % (9.0-44.0); LYMPHOCYTE # 0.7 TH/MM3 (1.0-4.8); MEAN CELL VOLUME 95.7 FL (80.0-100.0); MEAN CORPUSCULAR HEMOGLOBIN 31.4 PG (27.0-34.0); MEAN CORPUSCULAR HGB CONC 32.8 % (32.0-36.0); MONO % 8.4 % (0.0-8.0); NEUT % 88.9 % (16.0-70.0); PLATELET COUNT 178 TH/MM3 (150-450); RED BLOOD COUNT 2.63 MIL/MM3 (4.50-5.90); RED CELL DISTRIBUTION WIDTH 27.8 % (11.6-17.2); WHITE BLOOD COUNT 27.8 TH/MM3 (4.0-11.0)
[2016-11-22 07:01] LABS: HEMO FLAGS AUTO DIFF
[2016-11-22 07:08] LABS: APTT (PATIENT) 31.7 SEC (24.3-30.1); PROTHROMBIN TIME - PATIENT 11.3 SEC (9.8-11.6)
[2016-11-22 07:10] LABS: BICARBONATE 30.7 MEQ/L (21.0-32.0); MAGNESIUM 1.5 MG/DL (1.5-2.5); POTASSIUM 3.9 MEQ/L (3.5-5.1)
[2016-11-22 08:00] VITALS: BP 108/53; PULSE 77; RESP 16; TEMP 97; O2SAT 99
[2016-11-22] MEDS: PANTOPRAZOLE SOD 20 MG DELAYED RELEASE TAB PO SCH (08:29)
[2016-11-22] MEDS: SENNOSIDES 8.6 MG TAB PO SCH (08:30)
[2016-11-22] MEDS: SODIUM CHLORIDE 0.9% FLUSH 10 ML FLUSH IV FLUSH SCH ×2 (08:30→21:18)
[2016-11-22] MEDS: MORPHINE SULFATE 60 MG CONTROLLED RELEASE TAB PO SCH ×2 (08:30→21:18)
[2016-11-22] MEDS ORDERED: NON-FORMULARY DRUG (Omeprazole 20 MG) PO SCH (09:00)
[2016-11-22 09:28] LABS: BANDS 37 % (0-6); METAMYELOCYTES 3 % (0-1); MYELOCYTES 7 % (0-0); NEUTROPHIL # MANUAL DIFF 25.3 TH/MM3 (1.8-7.7); PLATELET ESTIMATE SMEAR NORMAL (NORMAL); PLATELET MORPHOLOGY NORMAL (NORMAL); POLYS (SEG NEUTROPHILS) 42 % (16-70); PROMYELOCYTES 2 % (0-0); SCAN/DIFF FINAL DIFF MANUAL; WBC DIFF SAMPLE 100
[2016-11-22 09:42] LABS: OVALOCYTES 1+ (NORMAL)
[2016-11-22 12:00] VITALS: BP 100/56; PULSE 81; RESP 16; TEMP 97.8; O2SAT 94
[2016-11-22] MEDS: PIPERACIL-TAZO 3.375 GM PREMIX 50 ML IV SCH ×2 (12:47→18:18)
--- NOTE | 2016-11-22 12:53 | HHI.PR ---
Subjective Remarks Follow-up sepsis 11/22/16-patient seen and examined, currently afebrile in no acute event overnight. States he would like to be discharged home Objective Vitals Vital Signs Date Time Temp Pulse Resp B/P Pulse Ox O2 Delivery O2 Flow Rate FiO2 11/22/16 12:00 97.8 81 16 100/56 94 11/22/16 09:30 18 11/22/16 08:00 97.0 77 16 108/53 99 11/22/16 04:00 97.2 80 18 98/54 98 11/22/16 00:00 97.7 82 18 96/54 96 11/21/16 20:00 96.6 84 18 110/56 98 11/21/16 19:18 88 23 95/54 100 Nasal Cannula 2.5 11/21/16 16:28 84 22 98/48 96 Nasal Cannula 2 11/21/16 15:38 90 18 92/54 98 Nasal Cannula 2 11/21/16 15:00 86 20 87/45 98 Nasal Cannula 2 11/21/16 14:45 88 20 103/51 94 Nasal Cannula 2 11/21/16 13:57 93 Nasal Cannula 2 85 I/O 11/21/16 11/21/16 11/21/16 11/22/16 11/22/16 11/22/16 07:00 15:00 23:00 07:00 15:00 23:00 Intake Total 120 ml 60 ml Output Total 575 ml 500 ml Balance -455 ml -440 ml Intake Oral 120 ml 60 ml Output Urine Total 575 ml 500 ml # Voids 0 # Bowel Movements 0 0 Result Diagram: 11/22/16 0625 11/22/16 0625 Imaging Last Impressions Head CT 11/21/167 Signed Impressions: Service Date/Time: Monday, November 21, 2016 12:51 - CONCLUSION: 1. Stable low-density region in the right frontoparietal lobe. 2. No significant change. 3. No hemorrhage. Raza Valdovinos MD Chest X-Ray 11/21/167 Signed Impressions: Service Date/Time: Monday, November 21, 2016 13:00 - CONCLUSION: Bilateral upper lung nodular densities grossly unchanged. Reg Perez MD Chest CT 11/21/16 0000 Signed Impressions: Service Date/Time: Monday, November 21, 2016 15:24 - CONCLUSION: 1. 11 mm cavitary lesion left upper lobe. 2. Scattered parenchymal densities throughout the right upper lobe, right middle and to lesser degree the lower lobes, could be infectious or neoplastic. 3. Left neck mass not well seen. 1. Raza Valdovinos MD Cervical Spine CT 11/21/16 Signed Impressions: Service Date/Time: Monday, November 21, 2016 12:53 - CONCLUSION: 1. Large cystic and solid mass in the left neck could be parotid in origin. 2. Multilevel degenerative changes and degenerative subluxations as described above. 3. No fracture. Raza Valdovinos MD Abdomen/Pelvis CT 11/21/16 Signed Impressions: Service Date/Time: Monday, November 21, 2016 15:24 - CONCLUSION: 1. Percutaneous gastrostomy tube. 2. Left sided renal cyst. 3. Intraluminal low density lesion in the small bowel in the left midabdomen could be a small mass. Raza Valdovinos MD Objective Remarks GENERAL: NAD SKIN: Warm and dry. HEAD: Normocephalic. EYES: No scleral icterus. No injection or drainage. NECK: Supple, trachea midline. No JVD or lymphadenopathy. CARDIOVASCULAR: Regular rate and rhythm without murmurs, gallops, or rubs. RESPIRATORY: Breath sounds equal bilaterally. No accessory muscle use. GASTROINTESTINAL: Abdomen soft, non-tender, nondistended. PEG tube in place MUSCULOSKELETAL: No cyanosis, or edema. BACK: Nontender without obvious deformity. No CVA tenderness. A/P Problem List: (1) Cavitary lesion of lung ICD Code: J98.4 Status: Acute (2) Sepsis ICD Code: A41.9 Status: Acute (3) Squamous cell carcinoma of head and neck ICD Code: C76.0 Status: Chronic (4) Weakness ICD Code: R53.1 Status: Acute Assessment and Plan 66-year-old man with Severe sepsis - hypotensive,HR> 90, WBC 35.2 Pulmonary lesions Infectious versus neoplastic - cavitary lesion, suspect Mycobacterium, lung abscess, septic emboli vs malignancy - Continue IV vancomycin and Zosyn - Consult ID input appreciated - Consult pulmonology input appreciated - Follow up Blood cultures Squamous cell carcinoma of the left neck with unknown primary - Consult oncology. Patient is undergoing radiation chemotherapy. - continue home analgesic regimen Anemia, normocytic normochromic - Maybe secondary to chemotherapy - Hemoglobin 8.5 in hematocrit 25 Hypomagnesemia-resolved status post replacement Generalized weakness, status post fall - Physical therapy/ occupational therapy eval and treat DVT prop SCDs Problem Qualifiers (1) Sepsis: Qualified Code: A41.9 - Sepsis, due to unspecified organism Raza Langley MD November 22, 2016 12:53
[2016-11-22 16:00] VITALS: BP 99/55; PULSE 77; RESP 16; TEMP 97.3; O2SAT 93
--- NOTE | 2016-11-22 16:05 | PD.ID.CON ---
History of Present Illness Service Infectious disease Consult Requested By Dr. Langley Reason for Consult Evaluation and management of cavity lung lesion, aspiration pneumonia in an immunocompromised patient. Primary Care Physician No Primary Care Physician Diagnoses: History of Present Illness Mr. 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 The patient is being treated by Dr. Jorge Gilbert oncologist and Dr. Dominic Guthrie radiation oncologist. Patients also has advanced cancer and is seen at [facility]. The patient undergoes chemotherapy using a port in right chest wall. He undergoes radiation therapy with 5 days of the week and undergoes chemotherapy (carboplatin per notes) on every Sunday (last chemotherapy 10/24/16). The patient frequently denies symptoms and wishes to go home today. As per records, fall was unwitnessed, patient was found on the floor with a head contusion. Poor historian but states that he remembered he had a fall yesterday denies any pain or discomfort. Denies SOB/ dyspnea. Denies chest pain, palpitations, headaches, dizziness. Denies fevers, chills, n/v/d. Denies hematuria, dysuria. Patient states he has urged urinate since the Ruano catheter has been placed. Discussed with patient importance of staying at the hospital for further treatment. Patient himself denies chest pain or shortness of breath. He reports pain at the left side of his neck where his cancer is located. ID is consulted for evaluation and Mment of cavities, lung lesion, aspiration pneumonia in an immunocompromised patient. Review of Systems ROS Limitations: Poor Historian Past Family Social History Allergies: Coded Allergies: No Known Allergies (Unverified , 10/02/16) Past Medical History Squamous cell carcinoma left neck discovered in June 2016 Likely undiagnosed COPD Past Surgical History PEG tube Left neck tumor resection - 9 yrs ago Reported Medications Reported Meds & Active Scripts Active Reported Hydrocodone-Acetaminophen 7.5-325 mg Tab 1 Tab PO Q4H PRN Senokot (Sennosides) 8.6 Mg Tab 8.6 Mg PO DAILY Alprazolam 0.25 Mg Tab 0.25 Mg PO Q4H PRN Omeprazole 20 Mg Tab 20 Mg PO DAILY Morphine Sulfate CR (Morphine Sulfate) 15 Mg Tab 60 Mg PO BID Hydromorphone (Hydromorphone HCl) 2 Mg Tab 2 Mg PO Q6H PRN Active Ordered Medications Current Medications Medications (Trade) Dose Ordered Sig/[place] Route Start Time Stop Time Status Last Admin (NS Flush) 2 ml BID IV FLUSH 11/21/16 21:00 11/22/16 08:30 (Tylenol) 650 mg Q4H PRN PO 11/21/16 18:30 (Zofran Inj) 4 mg Q6H PRN IVP 11/21/16 18:30 (Milk Of Magnesia Liq) 30 ml Q12H PRN PO 11/21/16 18:30 (Narcan Inj) 0.4 mg UNSCH PRN IV 11/21/16 18:30 (Xanax) 0.25 mg Q4H PRN PO 11/21/16 21:30 ([place] 7.5-325 Mg) 1 tab Q4H PRN PO 11/21/16 21:30 (Dilaudid) 2 mg Q6H PRN PO 11/21/16 21:30 (Senokot) 8.6 mg DAILY PO 11/22/16 09:00 11/22/16 08:30 (Oramorph Sr) 60 mg BID PO 11/22/16 09:00 11/22/16 08:30 Pantoprazole Sodium 20 mg 20 mg DAILY PO 11/22/16 09:00 11/22/16 08:29 (Zosyn 3.375 Gm Premix) 50 ml @ 100 mls/hr Q6H IV 11/22/16 13:00 11/22/16 18:18 Family History Reviewed mom's family- heart attack cancer - in dad's family dad lung cancer Social History smoked a whole pack of cigarettes even before coming to hospital. smoked since 20 yrs or or so, about a pack a day resident caregiver reports patient drinks heavily. Patient denies alcohol. no drug abuse Physical Exam Vital Signs Vital Signs Date Time Temp Pulse Resp B/P Pulse Ox O2 Delivery O2 Flow Rate FiO2 11/22/16 12:00 97.8 81 16 100/56 94 11/22/16 09:30 18 11/22/16 08:00 97.0 77 16 108/53 99 11/22/16 04:00 97.2 80 18 98/54 98 11/22/16 00:00 97.7 82 18 96/54 96 11/21/16 20:00 96.6 84 18 110/56 98 11/21/16 19:18 88 23 95/54 100 Nasal Cannula 2.5 11/21/16 16:28 84 22 98/48 96 Nasal Cannula 2 Physical Exam GENERAL: Thin built, poorly nourished patient, in no apparent distress. SKIN: No rashes, ecchymoses or lesions. Cool and dry. HEAD: Atraumatic. Normocephalic. No temporal or scalp tenderness. EYES: Pupils equal round and reactive. Extraocular motions intact. No scleral icterus. No injection or drainage. ENT: Nose without bleeding, purulent drainage or septal hematoma. Throat without erythema, tonsillar hypertrophy or exudate. Uvula midline. Airway patent. NECK: Trachea midline. Left side of the neck with chronic swelling. No signs of acute infection. CARDIOVASCULAR: Regular rate and rhythm without murmurs, gallops, or rubs. RESPIRATORY: Clear to auscultation. Breath sounds equal bilaterally. No wheezes , rales, or rhonchi. GASTROINTESTINAL: Abdomen soft, non-tender, nondistended. PEG tube site okay. MUSCULOSKELETAL: Extremities without clubbing, cyanosis, or edema. No joint tenderness, effusion, or edema noted. No calf tenderness. Negative Homans sign bilaterally. NEUROLOGICAL: Awake and alert. Mostly nonfocal. Psych cooperative IV line sites with no evidence of infection. Laboratory Laboratory Tests Test 11/22/16 06:25 White Blood Count 27.8 Red Blood Count 2.63 Hemoglobin 8.3 Hematocrit 25.2 Mean Corpuscular Volume 95.7 Mean Corpuscular Hemoglobin 31.4 Mean Corpuscular Hemoglobin 32.8 Concent Red Cell Distribution Width 27.8 Platelet Count 178 Mean Platelet Volume 7.7 Neutrophils (%) (Auto) 88.9 Lymphocytes (%) (Auto) 2.4 Monocytes (%) (Auto) 8.4 Eosinophils (%) (Auto) 0.1 Basophils (%) (Auto) 0.2 Neutrophils # (Auto) 24.7 Lymphocytes # (Auto) 0.7 Monocytes # (Auto) 2.3 Eosinophils # (Auto) 0.0 Basophils # (Auto) 0.1 CBC Comment AUTO DIFF Differential Total Cells 100 Counted Neutrophils % (Manual) 42 Band Neutrophils % 37 Lymphocytes % 2 Monocytes % 7 Neutrophils # (Manual) 25.3 Metamyelocytes 3 Myelocytes 7 Promyelocytes 2 Differential Comment FINAL DIFF MANUAL Platelet Estimate NORMAL Platelet Morphology Comment NORMAL Ovalocytes 1+ Prothrombin Time 11.3 Prothromb Time International 1.0 Ratio Activated Partial 31.7 Thromboplast Time Sodium Level 137 Potassium Level 3.9 Chloride Level 103 Carbon Dioxide Level 30.7 Anion Gap 3 Blood Urea Nitrogen 10 Creatinine 0.48 Estimat Glomerular Filtration 174 Rate Random Glucose 71 Calcium Level 8.6 Magnesium Level 1.5 Date/Time Procedure Status Source Growth 11/21/16 14:42 Urine Culture - Preliminary Resulted Urine Catheterized Urine NO GROWTH IN 24 HOURS. 11/21/16 13:20 Aerobic Blood Culture - Preliminary Resulted Blood Peripheral NO GROWTH IN 1 DAY 11/21/16 13:20 Anaerobic Blood Culture - Preliminary Resulted Blood Peripheral NO GROWTH IN 1 DAY Result Diagram: 11/22/16 0625 11/22/16 0625 Imaging Last Impressions Head CT 11/21/161226 Signed Impressions: Service Date/Time: Monday, November 21, 2016 12:51 - CONCLUSION: 1. Stable low-density region in the right frontoparietal lobe. 2. No significant change. 3. No hemorrhage. Raza Valdovinos MD Chest X-Ray 11/21/161226 Signed Impressions: Service Date/Time: Monday, November 21, 2016 13:00 - CONCLUSION: Bilateral upper lung nodular densities grossly unchanged. Reg Perez MD Chest CT 11/21/16 0000 Signed Impressions: Service Date/Time: Monday, November 21, 2016 15:24 - CONCLUSION: 1. 11 mm cavitary lesion left upper lobe. 2. Scattered parenchymal densities throughout the right upper lobe, right middle and to lesser degree the lower lobes, could be infectious or neoplastic. 3. Left neck mass not well seen. 1. Raza Valdovinos MD Cervical Spine CT 11/21/16 0000 Signed Impressions: Service Date/Time: Monday, November 21, 2016 12:53 - CONCLUSION: 1. Large cystic and solid mass in the left neck could be parotid in origin. 2. Multilevel degenerative changes and degenerative subluxations as described above. 3. No fracture. Raza Valdovinos MD Abdomen/Pelvis CT 11/21/16 0000 Signed Impressions: Service Date/Time: Monday, November 21, 2016 15:24 - CONCLUSION: 1. Percutaneous gastrostomy tube. 2. Left sided renal cyst. 3. Intraluminal low density lesion in the small bowel in the left midabdomen could be a small mass. Raza Valdovinos MD Assessment and Plan Assessment and Plan Sepsis present on admission Aspiration pneumonia in the setting of head and neck cancer. Cavity in the lung differential diagnosis metastases with secondary bacterial pneumonia. Head and neck cancer Undergoes chemotherapy using a port Immune compromised Undergoes radiation therapy High-grade leukocytosis: Zosyn only started today after initial first dose. Will assess response to see if any change in regimen needed. Recommendations Continue Zosyn IV case discussed with Danilo SHEPHERD Follow cultures Follow clinically This appears to be secondary infection of the pre-existing cavity which could be either metastases or from recurrent aspiration. Alyssa Ahumada MD November 22, 2016 16:05
[2016-11-22 20:00] VITALS: BP 95/52; PULSE 77; RESP 18; TEMP 97.9; O2SAT 98
[2016-11-23] VITALS: BP 109/52; PULSE 81; RESP 18; TEMP 97.4; O2SAT 97
[2016-11-23] MEDS: PIPERACIL-TAZO 3.375 GM PREMIX 50 ML IV SCH ×4 (00:17→20:15)
[2016-11-23 07:02] LABS: AUTOMATED NEUTROPHIL # 16.9 TH/MM3 (1.8-7.7); BASOPHIL % 0.3 % (0.0-2.0); EOSINOPHIL % 0.1 % (0.0-4.0); HEMATOCRIT 27.4 % (39.0-51.0); LYMPH % 3.6 % (9.0-44.0); LYMPHOCYTE # 0.7 TH/MM3 (1.0-4.8); MEAN CELL VOLUME 95.9 FL (80.0-100.0); MEAN CORPUSCULAR HEMOGLOBIN 31.3 PG (27.0-34.0); MEAN CORPUSCULAR HGB CONC 32.6 % (32.0-36.0); MONO % 7.1 % (0.0-8.0); NEUT % 88.9 % (16.0-70.0); PLATELET COUNT 162 TH/MM3 (150-450); RED BLOOD COUNT 2.86 MIL/MM3 (4.50-5.90); RED CELL DISTRIBUTION WIDTH 28.4 % (11.6-17.2)
[2016-11-23 07:15] LABS: HEMO FLAGS AUTO DIFF
[2016-11-23 08:00] VITALS: BP 111/55; PULSE 81; RESP 16; TEMP 96.8; O2SAT 98
[2016-11-23] MEDS: SODIUM CHLORIDE 0.9% FLUSH 10 ML FLUSH IV FLUSH SCH ×2 (08:46→20:15)
[2016-11-23] MEDS: MORPHINE SULFATE 60 MG CONTROLLED RELEASE TAB PO SCH ×2 (08:46→20:15)
[2016-11-23] MEDS: PANTOPRAZOLE SOD 20 MG DELAYED RELEASE TAB PO SCH (08:46)
[2016-11-23] MEDS: SENNOSIDES 8.6 MG TAB PO SCH (08:46)
[2016-11-23] MEDS: SODIUM CHLOR 0.9% 1000 ML INJ 1,000 ML IV SCH ×2 (09:00→20:14)
--- NOTE | 2016-11-23 09:08 | MB ---
cc: MATTEO GANNON DATE OF CONSULTATION: 11/22/2016 DATE OF : 1950 REASON FOR CONSULTATION Patient with a history of head and neck cancer, who is currently undergoing concurrent chemotherapy and radiation, who had a fall and was sent to the emergency room. CHIEF COMPLAINT Weakness. HISTORY OF PRESENT ILLNESS Mr. Long is a 66-year-old male who has a diagnosis of squamous cell carcinoma of the left neck. This is a [id number] squamous cell carcinoma which was diagnosed in June of 2016. He was found to have a mass deep to the left sternocleidomastoid muscle and lateral to the left carotid space which was 4.3 x 2.9 x 4.3 cm. He also had local adenopathy. These were PET active lesions. The patient has been treated with concurrent chemotherapy and radiation treatments. Unfortunately, he has not been able to receive his chemotherapy treatments due to declining performance status and also persistent thrombocytopenia. The patient has severe dysphagia. He has a PEG tube in place but he has been noncompliant with using his PEG tube for feeds. He has been trying to eat by mouth as much as possible, this has been difficult since he is dysphagic. He has also continued to smoke and drink alcohol during his chemotherapy. He now states that he has stopped engaging in these activities. The patient was sent to the emergency department after he had a fall and was found on the floor with a head contusion. In the emergency room he has undergone head imaging which did not show any acute intracranial process. The patient has been running low blood pressures which could have been partly responsible for his presyncopal episode and fall. His oral intake has been somewhat minimal and he has not been using his PEG tube for feeds. He denies any headaches, no blurry vision. No chest pain. No dyspnea and no abdominal pain and diarrhea. No lower extremity edema or pain. He is awake and alert and is not in any pain. He is able to ambulate around his bed and use the restroom. He is quite cachectic and weak. His ECOG performance status is 1 to 2. REVIEW OF SYSTEMS A comprehensive 14-point review of systems was completed which is negative except as described in the HPI. PAST MEDICAL HISTORY 1. Locally advanced head and neck cancer. 2. History of tobacco abuse. 3. History of alcohol abuse. 4. History of COPD. PAST SURGICAL HISTORY 1. PEG tube placement. 2. Left neck tumor dissection. 3. History of biopsy of the head and neck tumor. MEDICATION Medications were reviewed in the EMR. ALLERGIES NO KNOWN DRUG ALLERGIES. FAMILY HISTORY Family history significant for coronary artery disease. His father had lung cancer. SOCIAL HISTORY He lives with his . He has a caretaker grounds at home. He continues to drink alcohol through his chemotherapy treatments. He also admits to smoking cigarettes. He has greater than 50 pack-years of smoking history. PHYSICAL EXAMINATION VITAL SIGNS: Blood pressure is 95/54, pulse is in the 80s, temperature is 96.6, respiratory rate is 23, O2 sats are 100% on 2 liters nasal cannula. GENERAL: Cachectic, weak male in no apparent distress. HEENT: Pupils are equal, round, reactive to light. EOMI. No oral thrush. No oral lesions. NECK: Neck is supple. No JVD, no bruits. No lymphadenopathy. CHEST: Chest is clear to auscultation bilaterally. CARDIAC: S1-S2, regular rate and rhythm. ABDOMEN: Soft, nontender, nondistended. Bowel sounds are present. EXTREMITIES: Without any edema, erythema or cyanosis. SKIN: Without any petechiae, lesion or bruises. NEURO: No focal deficits. PSYCHIATRIC: Mood and affect is appropriate. LABORATORY DATA WBCs 27.8, hemoglobin is 8.3, platelet count is 178. Serum chemistries show sodium 137, potassium 3.9, chloride 103, CO2 30.7, BUN is 10, creatinine is 0.48, GFR is 174, lactic acid is 1.3, calcium is 8.6, magnesium 1.5, albumin is 2.3. IMAGING STUDIES All imaging was reviewed in the EMR. He has had a chest x-ray which shows bilateral upper lung nodular densities which are stable. CT of the head did not show any acute intracranial abnormality. CT of the abdomen and pelvis shows nonspecific intraluminal low density lesion in the small bowel. Cervical spine CT shows a large cystic and solid mass which was visualized in the left neck. There is multilevel degenerative disease. CT of the chest shows a 11 mm cavitary mass in the left upper lobe. There is scattered parenchymal densities throughout the right upper lobe, right middle and to a lesser degree lower lobes. ASSESSMENT/PLAN This is a 66-year-old male who has a diagnosis of locally advanced squamous cell carcinoma of the head and neck, who is currently undergoing concurrent chemotherapy and radiation treatments. He presents to the emergency room with presyncope and a fall. 1. Presyncope and fall. This is likely related to hypotension, dehydration secondary to poor oral intake. He has not been using his PEG tube on a regular basis for enteral feeds. His oral intake is poor because of dysphagia. He also appears to be intravascularly depleted. We will hold off his blood pressure medications. We will give him IV fluids, normal saline at 75 cc/hour. We will consult dietitian. Will resume his tube feeds. His albumin is quite low. We will also consider starting this patient on TPN but will hold off on this and make an attempt to advance his enteral feeds through the PEG tube. 2. Leukocytosis, likely reactive. There is 11-mm cavitary lesion in the left upper lobe, this could be infectious. There is a possibility of metastatic disease as well but this is less likely. Appreciate infectious disease recommendations. We will consider a PET scan outpatient. We will also consider pulmonary consult for bronchoscopy. 3. Anemia with a hemoglobin of 8.3. We will continue to monitor. Will transfuse packed red blood cells for hemoglobin of 7.5 or less. Thank you for allowing me to participate in the care of this patient. I will continue to follow this patient along. MD GLENN Rizo/KENDELL /1:18 AM /8:45 AM
--- NOTE | 2016-11-23 09:26 | PD.ONC.PN ---
Subjective Subjective Remarks Afebrile overnight. Pt resting in bed with RN, visitor present. He denies SOB, chest pain. He is asking to go home. Objective Data Date Time Temp Pulse Resp B/P Pulse Ox O2 Delivery O2 Flow Rate FiO2 11/23/16 08:00 96.8 81 16 111/55 98 11/23/16 00:00 97.4 81 18 109/52 97 11/22/16 20:00 97.9 77 18 95/52 98 11/22/16 16:00 97.3 77 16 99/55 93 11/22/16 12:00 97.8 81 16 100/56 94 11/22/16 09:30 18 11/23/16 11/23/16 11/23/16 06:59 14:59 22:59 Intake Total 220 ml Output Total 1 ml Balance 219 ml Result Diagram: 11/23/16 0605 11/22/16 0625 Laboratory Results Laboratory Tests Test 11/23/16 06:05 White Blood Count 19.0 TH/MM3 Red Blood Count 2.86 MIL/MM3 Hemoglobin 8.9 GM/DL Hematocrit 27.4 % Mean Corpuscular Volume 95.9 FL Mean Corpuscular Hemoglobin 31.3 PG Mean Corpuscular Hemoglobin 32.6 % Concent Red Cell Distribution Width 28.4 % Platelet Count 162 TH/MM3 Mean Platelet Volume 7.6 FL Neutrophils (%) (Auto) 88.9 % Lymphocytes (%) (Auto) 3.6 % Monocytes (%) (Auto) 7.1 % Eosinophils (%) (Auto) 0.1 % Basophils (%) (Auto) 0.3 % Neutrophils # (Auto) 16.9 TH/MM3 Lymphocytes # (Auto) 0.7 TH/MM3 Monocytes # (Auto) 1.3 TH/MM3 Eosinophils # (Auto) 0.0 TH/MM3 Basophils # (Auto) 0.0 TH/MM3 CBC Comment AUTO DIFF Culture Results Microbiology Date/Time Procedure Status Source Growth 11/21/16 13:20 Aerobic Blood Culture - Preliminary Resulted Blood Peripheral NO GROWTH IN 1 DAY 11/21/16 13:20 Anaerobic Blood Culture - Preliminary Resulted Blood Peripheral NO GROWTH IN 1 DAY 11/21/16 13:20 Aerobic Blood Culture - Preliminary Resulted Blood Peripheral NO GROWTH IN 1 DAY 11/21/16 13:20 Anaerobic Blood Culture - Preliminary Resulted Blood Peripheral NO GROWTH IN 1 DAY 11/21/16 14:42 Urine Culture - Final Complete Urine Catheterized Urine NO GROWTH IN 48 HOURS. Administered Medications Medications (Trade) Dose Ordered Sig/[place] Route PRN Reason Start Time Stop Time Status Last Admin Dose Admin Sodium Chloride (NS Flush) 2 ml BID IV FLUSH 11/21/16 21:00 11/23/16 08:46 Sennosides (Senokot) 8.6 mg DAILY PO 11/22/16 09:00 11/23/16 08:46 Morphine Sulfate (Oramorph Sr) 60 mg BID PO 11/22/16 09:00 11/23/16 08:46 Pantoprazole Sodium 20 mg 20 mg DAILY PO 11/22/16 09:00 11/23/16 08:46 Piperacillin Sod/ Tazobactam Sod (Zosyn 3.375 Gm Premix) 50 ml @ 100 mls/hr Q6H IV 11/22/16 13:00 11/23/16 06:03 Objective Remarks GENERAL: Thin, cachetic older male, lying in bed in no distress. SKIN: Warm and dry. HEAD: Normocephalic. EYES: No scleral icterus. NECK: Supple, trachea midline. XRT skin changes noted. CARDIOVASCULAR: Regular rate and rhythm without murmurs. RESPIRATORY: Breath sounds equal bilaterally. No accessory muscle use. GASTROINTESTINAL: Abdomen soft, non-tender, nondistended. EXTREMITIES: No edema. NEUROLOGICAL: Alert. Normal speech. Follows commands. 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 -- Getting XRT to neck by Dr Guthrie. Hx/Workup: The patient originally developed a left neck mass June 2016. Biopsy confirmed squamous cell carcinoma with extensive necrosis. A CT scan on June 21, 2016 showed a mass in the left sternocleidomastoid muscle and lateral to the left parotid space measuring 1.3 x 2.9 x0.3 cm. The patient had a PET scan that did not identify the primary. He has been getting concurrent chemotherapy and radiation. (2) Weakness Status: Acute Plan: -- Start IV fluids -- Start tube feedings -- The pt has a PEG tube, however he frequently gets confused and unhooks the tube feeding when it is infusing at home. He is able to take in solids and liquids but has poor appetite. Assessment 66 y/o male with history of squamous cell carcinoma of the neck who is currently getting concurrent chemotherapy and radiation who fell at home, likely due to poor po intake and dehydration. Plan 1. Start IVF 2. Start Tube Feedings. 3. Will discuss with our dietitian Marly if he would be a candidate for bolus feedings once discharged. 4. Further XRT per Dr Guthrie. Attending Statement The exam, history, and the medical decision-making described in the above note were completed with the assistance of the mid-level provider. I reviewed and agree with the findings presented. I attest that I had a [id number] encounter with the patient on the same day, and personally performed and documented my assessment and findings in the medical record. Poor appetite- start Megace and mirtazapine continue IVF and Tube feeds Transfuse 1 unit of pRBC. Anemia secondary to chemotherapy/XRT--symptomatic with severe weakness appreciate ID assistance. Discussed with Roxanna Lockhart November 23, 2016 09:26 Jorge Gilbert MD November 23, 2016 23:17
[2016-11-23 10:04] LABS: BANDS 25 % (0-6); NEUTROPHIL # MANUAL DIFF 16.9 TH/MM3 (1.8-7.7); POLYS (SEG NEUTROPHILS) 64 % (16-70); TOXIC GRANULATION 1+ (NORMAL); WBC DIFF SAMPLE 100
[2016-11-23 10:05] LABS: PLATELET ESTIMATE SMEAR NORMAL (NORMAL); PLATELET MORPHOLOGY NORMAL (NORMAL); SCAN/DIFF FINAL DIFF MANUAL
[2016-11-23 12:00] VITALS: BP 111/58; PULSE 76; RESP 16; TEMP 97.2; O2SAT 94
--- NOTE | 2016-11-23 12:41 | HHI.PR ---
Subjective Remarks Follow-up sepsis 11/22/16-patient seen and examined, currently afebrile in no acute event overnight. States he would like to be discharged home 11/23/16-patient seen and examined, stable, no complaint. by the bedside Objective Vitals Vital Signs Date Time Temp Pulse Resp B/P Pulse Ox O2 Delivery O2 Flow Rate FiO2 11/23/16 12:00 97.2 76 16 111/58 94 11/23/16 08:00 96.8 81 16 111/55 98 11/23/16 00:00 97.4 81 18 109/52 97 11/22/16 20:00 97.9 77 18 95/52 98 11/22/16 16:00 97.3 77 16 99/55 93 I/O 11/22/16 11/22/16 11/22/16 11/23/16 11/23/16 11/23/16 07:00 15:00 23:00 07:00 15:00 23:00 Intake Total 60 ml 0 ml 240 ml 220 ml Output Total 500 ml 0 ml 1 ml Balance -440 ml 0 ml 240 ml 219 ml Intake Oral 60 ml 0 ml 240 ml 120 ml IV Total 0 ml 100 ml Output Urine Total 500 ml 0 ml 1 ml # Voids 1 50 # Bowel Movements 0 0 0 0 Result Diagram: 11/23/16 0605 11/22/16 0625 Objective Remarks GENERAL: NAD SKIN: Warm and dry. HEAD: Normocephalic. EYES: No scleral icterus. No injection or drainage. NECK: Supple, trachea midline. No JVD or lymphadenopathy. CARDIOVASCULAR: Regular rate and rhythm without murmurs, gallops, or rubs. RESPIRATORY: Breath sounds equal bilaterally. No accessory muscle use. GASTROINTESTINAL: Abdomen soft, non-tender, nondistended. PEG tube in place MUSCULOSKELETAL: No cyanosis, or edema. BACK: Nontender without obvious deformity. No CVA tenderness. A/P Problem List: (1) Cavitary lesion of lung ICD Code: J98.4 Status: Acute (2) Sepsis ICD Code: A41.9 Status: Acute (3) Squamous cell carcinoma of head and neck ICD Code: C76.0 Status: Chronic (4) Weakness ICD Code: R53.1 Status: Acute Assessment and Plan 66-year-old man with Severe sepsis - hypotensive,HR> 90, WBC 35.2 Pulmonary lesions Infectious versus neoplastic - cavitary lesion, suspect Mycobacterium, lung abscess, septic emboli vs malignancy - Continue IV Zosyn - Appreciate input from ID input - Follow up Blood cultures Squamous cell carcinoma of the left neck with unknown primary - Appreciate input from oncology. Patient is undergoing radiation chemotherapy. - continue home analgesic regimen Anemia, normocytic normochromic - Hemoglobin 8.5 in hematocrit 25; stable and continue to monitor H&H Hypomagnesemia-resolved status post replacement Generalized weakness, status post fall - Physical therapy/ occupational therapy eval and treat DVT prop SCDs Problem Qualifiers (1) Sepsis: Qualified Code: A41.9 - Sepsis, due to unspecified organism Raza Langley MD November 23, 2016 12:41 Raza Langley MD November 23, 2016 12:41
--- NOTE | 2016-11-23 14:45 | HHI.PR ---
Addendum to Inpatient Note Addendum Reason: Additional Documentation Additional Information Chart review documentation: WBC improving: dehydration and Aspiration pneumonia related cavity and secondary bacterial infection. No fevers D.w Dr.Awais Gilbert: patient is not compliant with tube feeds. Likely recurrent aspiration related cavity and secondary bacterial infection. If WBC continues to trend downwards, Clinically improved ok to DC home on Oral Augmentin liquid formulation through PEG tube. Consider palliative care reconsult to address goals of therapy. covering for me this weekend prn. Will sign off please call back if any change in clinical condition or questions. Alyssa Ahumada MD November 23, 2016 14:45
[2016-11-23 16:00] VITALS: BP 93/52; PULSE 90; RESP 16; TEMP 97.3; O2SAT 93
[2016-11-23 20:00] VITALS: BP 101/57; PULSE 79; RESP 18; TEMP 97.5; O2SAT 95
[2016-11-24] VITALS (8 sets, daily range): BP systolic 92–137; BP diastolic 51–64; PULSE 73–96; RESP 14–20; TEMP 96.8–98.5; O2SAT 92–100
[2016-11-24] MEDS: PIPERACIL-TAZO 3.375 GM PREMIX 50 ML IV SCH ×4 (01:27→18:24)
[2016-11-24] MEDS: SODIUM CHLORIDE 0.9% FLUSH 10 ML FLUSH IV FLUSH SCH ×2 (07:54→21:35)
[2016-11-24] MEDS: SODIUM CHLOR 0.9% 1000 ML INJ 1,000 ML IV SCH ×2 (07:54→21:35)
[2016-11-24] MEDS: SENNOSIDES 8.6 MG TAB PO SCH (07:56)
[2016-11-24] MEDS: PANTOPRAZOLE SOD 20 MG DELAYED RELEASE TAB PO SCH (07:56)
[2016-11-24] MEDS: MORPHINE SULFATE 60 MG CONTROLLED RELEASE TAB PO SCH ×2 (07:57→21:35)
--- NOTE | 2016-11-24 09:46 | HHI.PR ---
Subjective Remarks Follow-up sepsis 11/22/16-patient seen and examined, currently afebrile in no acute event overnight. States he would like to be discharged home 11/23/16-patient seen and examined, stable, no complaint. by the bedside 11/24/16-patient seen and examined; Afebrile. Now on tube feed and taking PO as well as. Objective Vitals Vital Signs Date Time Temp Pulse Resp B/P Pulse Ox O2 Delivery O2 Flow Rate FiO2 11/24/16 08:00 97.6 73 14 92/52 93 11/24/16 04:00 96.8 96 18 137/64 92 11/24/16 00:00 97.1 74 16 96/51 94 11/23/16 20:00 97.5 79 18 101/57 95 11/23/16 16:00 97.3 90 16 93/52 93 11/23/16 12:00 97.2 76 16 111/58 94 I/O 11/23/16 11/23/16 11/23/16 11/24/16 11/24/16 11/24/16 07:00 15:00 23:00 07:00 15:00 23:00 Intake Total 220 ml 320 ml 809 ml 1266 ml Output Total 1 ml 200 ml Balance 219 ml 320 ml 609 ml 1266 ml Intake Oral 120 ml 0 ml 240 ml 120 ml IV Total 100 ml 320 ml 509 ml 849 ml Tube Feeding 60 ml 297 ml Output Urine Total 1 ml 200 ml # Voids 50 2 1 # Bowel Movements 0 0 0 0 Result Diagram: 11/23/16 0605 11/22/16 0625 Objective Remarks GENERAL: NAD SKIN: Warm and dry. HEAD: Normocephalic. EYES: No scleral icterus. No injection or drainage. NECK: Supple, trachea midline. No JVD or lymphadenopathy. CARDIOVASCULAR: Regular rate and rhythm without murmurs, gallops, or rubs. RESPIRATORY: Breath sounds equal bilaterally. No accessory muscle use. GASTROINTESTINAL: Abdomen soft, non-tender, nondistended. PEG tube in place MUSCULOSKELETAL: No cyanosis, or edema. BACK: Nontender without obvious deformity. No CVA tenderness. 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 Patient is undergoing radiation chemotherapy. - continue home analgesic regimen -Tube feed restarted Anemia, normocytic normochromic - stable and continue to monitor H&H Hypomagnesemia-resolved status post replacement Generalized weakness, status post fall - Physical therapy/ occupational therapy eval and treat DVT prop SCDs Problem Qualifiers (1) Sepsis: Qualified Code: A41.9 - Sepsis, due to unspecified organism Raza Langley MD November 24, 2016 09:46
--- NOTE | 2016-11-24 11:08 | PD.ONC.PN ---
Subjective Subjective Remarks Afebrile overnight. Patient states he feels well today. He wants to get out of bed. Tolerating tube feeds and trying to eat breakfast, as well. Denies weakness. Objective Data Date Time Temp Pulse Resp B/P Pulse Ox O2 Delivery O2 Flow Rate FiO2 11/24/16 08:00 97.6 73 14 92/52 93 11/24/16 04:00 96.8 96 18 137/64 92 11/24/16 00:00 97.1 74 16 96/51 94 11/23/16 20:00 97.5 79 18 101/57 95 11/23/16 16:00 97.3 90 16 93/52 93 11/23/16 12:00 97.2 76 16 111/58 94 Result Diagram: 11/23/1660411/22/1625 Culture Results Microbiology Date/Time Procedure Status Source Growth 11/21/16 13:20 Aerobic Blood Culture - Preliminary Resulted Blood Peripheral NO GROWTH IN 2 DAYS 11/21/16 13:20 Anaerobic Blood Culture - Preliminary Resulted Blood Peripheral NO GROWTH IN 2 DAYS 11/21/16 13:20 Aerobic Blood Culture - Preliminary Resulted Blood Peripheral NO GROWTH IN 2 DAYS 11/21/16 13:20 Anaerobic Blood Culture - Preliminary Resulted Blood Peripheral NO GROWTH IN 2 DAYS 11/21/16 14:42 Urine Culture - Final Complete Urine Catheterized Urine NO GROWTH IN 48 HOURS. Administered Medications Medications (Trade) Dose Ordered Sig/[place] Route PRN Reason Start Time Stop Time Status Last Admin Dose Admin Sodium Chloride (NS Flush) 2 ml BID IV FLUSH 11/21/16 21:00 11/23/16 08:46 Sennosides (Senokot) 8.6 mg DAILY PO 11/22/16 09:00 11/24/16 07:56 Morphine Sulfate (Oramorph Sr) 60 mg BID PO 11/22/16 09:00 11/24/16 07:57 Pantoprazole Sodium 20 mg 20 mg DAILY PO 11/22/16 09:00 11/24/16 07:56 Piperacillin Sod/ Tazobactam Sod 50 ml @ 100 mls/hr Q6H IV 11/22/16 13:00 11/24/16 06:12 Sodium Chloride (NS 1000 ml Inj) 1,000 ml @ 84 mls/hr [id number] IV 11/23/16 09:00 11/24/16 07:54 Objective Remarks GENERAL: Middle aged male, sitting up in bed in nad. SKIN: Warm and dry. HEAD: Normocephalic. EYES: No injection or drainage. NECK: Supple, trachea midline. CARDIOVASCULAR: Regular rate and rhythm RESPIRATORY: Breath sounds equal bilaterally. No accessory muscle use. GASTROINTESTINAL: Abdomen soft, non-tender, nondistended. EXTREMITIES: No cyanosis NEUROLOGICAL: No obvious focal deficit. Awake, alert, and oriented x3. 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 -- Getting XRT to neck by Dr Guthrie. Hx/Workup: The patient originally developed a left neck mass June 2016. Biopsy confirmed squamous cell carcinoma with extensive necrosis. A CT scan on June 21, 2016 showed a mass in the left sternocleidomastoid muscle and lateral to the left parotid space measuring 1.3 x 2.9 x0.3 cm. The patient had a PET scan that did not identify the primary. He has been getting concurrent chemotherapy and radiation. (2) Weakness Status: Acute Plan: --receiving IVF + TF --able to take in solids and liquids but has poor appetite. (3) Cavitary lesion of lung Status: Acute Plan: --ID following, on IV Zosyn --BC no growth Assessment 66 y/o male with history of squamous cell carcinoma of the neck who is currently getting concurrent chemotherapy and radiation who fell at home, likely due to poor PO intake and dehydration. Plan 1. continue IVF + tube feedings 2. continue physical therapy 3. antibiotics per ID Attending Statement The exam, history, and the medical decision-making described in the above note were completed with the assistance of the mid-level provider. I reviewed and agree with the findings presented. I attest that I had a [id number] encounter with the patient on the same day, and personally performed and documented my assessment and findings in the medical record. keep through the weekend. continue supportive care high risk of re-admission Amalia Gomez November 24, 2016 11:08 Jorge Gilbert MD November 24, 2016 23:19
[2016-11-24] MEDS ORDERED: diphenhydrAMINE HCL 25 MG CAP PO SCH (11:45)
[2016-11-24] MEDS ORDERED: ACETAMINOPHEN 325 MG TAB PO SCH (11:45)
[2016-11-24 12:12] LABS: AUTOMATED NEUTROPHIL # 9.4 TH/MM3 (1.8-7.7); BASOPHIL % 0.2 % (0.0-2.0); EOSINOPHIL % 0.1 % (0.0-4.0); HEMATOCRIT 27.4 % (39.0-51.0); LYMPH % 3.2 % (9.0-44.0); LYMPHOCYTE # 0.3 TH/MM3 (1.0-4.8); MEAN CELL VOLUME 96.3 FL (80.0-100.0); MEAN CORPUSCULAR HEMOGLOBIN 32.1 PG (27.0-34.0); MEAN CORPUSCULAR HGB CONC 33.4 % (32.0-36.0); MONO % 7.3 % (0.0-8.0); NEUT % 89.2 % (16.0-70.0); PLATELET COUNT 129 TH/MM3 (150-450); RED BLOOD COUNT 2.84 MIL/MM3 (4.50-5.90); RED CELL DISTRIBUTION WIDTH 27.9 % (11.6-17.2); WHITE BLOOD COUNT 10.5 TH/MM3 (4.0-11.0)
[2016-11-24 12:17] LABS: HEMO FLAGS AUTO DIFF
[2016-11-24 12:48] LABS: BANDS 19 % (0-6); BASOPHILS 1 % (0-2); MYELOCYTES 1 % (0-0); NEUTROPHIL # MANUAL DIFF 9.3 TH/MM3 (1.8-7.7); POLYS (SEG NEUTROPHILS) 68 % (16-70); PROMYELOCYTES 1 % (0-0); TOXIC GRANULATION 1+ (NORMAL); WBC DIFF SAMPLE 100
[2016-11-24 12:49] LABS: PLATELET ESTIMATE SMEAR LOW (NORMAL); PLATELET MORPHOLOGY NORMAL (NORMAL); SCAN/DIFF FINAL DIFF MANUAL
[2016-11-25] VITALS: BP 98/52; PULSE 74; RESP 20; TEMP 98.5; O2SAT 96
[2016-11-25] MEDS: PIPERACIL-TAZO 3.375 GM PREMIX 50 ML IV SCH ×4 (00:18→17:54)
[2016-11-25 05:59] LABS: AUTOMATED NEUTROPHIL # 6.7 TH/MM3 (1.8-7.7); BASOPHIL % 0.4 % (0.0-2.0); EOSINOPHIL % 0.1 % (0.0-4.0); HEMATOCRIT 30.5 % (39.0-51.0); LYMPH % 7.1 % (9.0-44.0); LYMPHOCYTE # 0.6 TH/MM3 (1.0-4.8); MEAN CELL VOLUME 91.7 FL (80.0-100.0); MEAN CORPUSCULAR HEMOGLOBIN 30.6 PG (27.0-34.0); MEAN CORPUSCULAR HGB CONC 33.3 % (32.0-36.0); MONO % 9.9 % (0.0-8.0); NEUT % 82.5 % (16.0-70.0); PLATELET COUNT 106 TH/MM3 (150-450); RED BLOOD COUNT 3.32 MIL/MM3 (4.50-5.90); RED CELL DISTRIBUTION WIDTH 27.9 % (11.6-17.2); WHITE BLOOD COUNT 8.1 TH/MM3 (4.0-11.0)
[2016-11-25 06:14] LABS: HEMO FLAGS AUTO DIFF
[2016-11-25 08:00] VITALS: BP 112/59; PULSE 75; RESP 14; TEMP 97.6; O2SAT 97
[2016-11-25] MEDS: MORPHINE SULFATE 60 MG CONTROLLED RELEASE TAB PO SCH ×2 (08:32→20:53)
[2016-11-25] MEDS: PANTOPRAZOLE SOD 20 MG DELAYED RELEASE TAB PO SCH (08:32)
[2016-11-25] MEDS: SENNOSIDES 8.6 MG TAB PO SCH (08:33)
[2016-11-25] MEDS: SODIUM CHLOR 0.9% 1000 ML INJ 1,000 ML IV SCH ×2 (08:33→20:53)
[2016-11-25] MEDS: SODIUM CHLORIDE 0.9% FLUSH 10 ML FLUSH IV FLUSH SCH ×2 (08:33→20:53)
[2016-11-25 08:43] LABS: BANDS 30 % (0-6); MYELOCYTES 6 % (0-0); NEUTROPHIL # MANUAL DIFF 7.5 TH/MM3 (1.8-7.7); POLYS (SEG NEUTROPHILS) 56 % (16-70); WBC DIFF SAMPLE 100
[2016-11-25 08:44] LABS: TOXIC GRANULATION 1+ (NORMAL)
[2016-11-25 08:45] LABS: PLATELET ESTIMATE SMEAR LOW (NORMAL); PLATELET MORPHOLOGY NORMAL (NORMAL); SCAN/DIFF FINAL DIFF MANUAL
[2016-11-25 12:00] VITALS: BP 120/62; PULSE 79; RESP 16; TEMP 97.5; O2SAT 98
--- NOTE | 2016-11-25 13:49 | HHI.PR ---
Subjective Remarks Follow-up sepsis 11/22/16-patient seen and examined, currently afebrile in no acute event overnight. States he would like to be discharged home 11/23/16-patient seen and examined, stable, no complaint. by the bedside 11/24/16-patient seen and examined; Afebrile. Now on tube feed and taking PO as well as. 11/25/16-patient seen and examined, afebrile and no acute event overnight Objective Vitals Vital Signs Date Time Temp Pulse Resp B/P Pulse Ox O2 Delivery O2 Flow Rate FiO2 11/25/16 12:00 97.5 79 16 120/62 98 11/25/16 08:00 97.6 75 14 112/59 97 11/25/16 00:00 98.5 74 20 98/52 96 11/24/16 20:00 98.3 74 20 110/61 100 11/24/16 16:00 97.8 75 14 106/55 99 11/24/16 15:12 98.2 75 16 104/57 98 11/24/16 14:36 97.5 73 16 114/56 96 I/O 11/24/16 11/24/16 11/24/16 11/25/16 11/25/16 11/25/16 07:00 15:00 23:00 07:00 15:00 23:00 Intake Total 1266 ml 600 ml 1486 ml 989 ml Output Total 400 ml 700 ml Balance 1266 ml 200 ml 786 ml 989 ml Intake Oral 120 ml 600 ml 720 ml 240 ml IV Total 849 ml 446 ml 412 ml Tube Feeding 297 ml 317 ml Packed Cells 320 ml Other 20 ml Output Urine Total 400 ml 700 ml # Voids 1 2 # Bowel Movements 0 0 1 2 Result Diagram: 11/25/16 0520 11/22/16 0625 Objective Remarks GENERAL: NAD SKIN: Warm and dry. HEAD: Normocephalic. EYES: No scleral icterus. No injection or drainage. NECK: Supple, trachea midline. No JVD or lymphadenopathy. CARDIOVASCULAR: Regular rate and rhythm without murmurs, gallops, or rubs. RESPIRATORY: Breath sounds equal bilaterally. No accessory muscle use. GASTROINTESTINAL: Abdomen soft, non-tender, nondistended. PEG tube in place MUSCULOSKELETAL: No cyanosis, or edema. BACK: Nontender without obvious deformity. No CVA tenderness. 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 Patient is undergoing radiation chemotherapy. - continue home analgesic regimen -Tube feed restarted Anemia, normocytic normochromic - stable and continue to monitor H&H Hypomagnesemia-resolved status post replacement Generalized weakness, status post fall - Physical therapy/ occupational therapy eval and treat DVT prop SCDs Discharge Planning Discharge likely 11/27/16 Problem Qualifiers (1) Sepsis: Qualified Code: A41.9 - Sepsis, due to unspecified organism Raza Langley MD November 25, 2016 13:49
[2016-11-25 16:00] VITALS: BP 114/59; PULSE 74; RESP 16; TEMP 98.3; O2SAT 97
[2016-11-25 20:00] VITALS: BP 112/64; PULSE 74; RESP 20; TEMP 98.1; O2SAT 96
[2016-11-26] VITALS: BP 116/61; PULSE 73; RESP 20; TEMP 96.8; O2SAT 98
[2016-11-26] MEDS: PIPERACIL-TAZO 3.375 GM PREMIX 50 ML IV SCH ×4 (01:21→17:26)
[2016-11-26] MEDS: PANTOPRAZOLE SOD 20 MG DELAYED RELEASE TAB PO SCH (07:44)
[2016-11-26] MEDS: MORPHINE SULFATE 60 MG CONTROLLED RELEASE TAB PO SCH ×2 (07:44→21:20)
[2016-11-26] MEDS: SODIUM CHLOR 0.9% 1000 ML INJ 1,000 ML IV SCH ×2 (07:45→21:20)
[2016-11-26] MEDS: SENNOSIDES 8.6 MG TAB PO SCH (07:46)
[2016-11-26] MEDS: SODIUM CHLORIDE 0.9% FLUSH 10 ML FLUSH IV FLUSH SCH ×2 (07:46→21:00)
[2016-11-26 08:00] VITALS: BP 114/64; PULSE 69; RESP 15; TEMP 98.2; O2SAT 99
--- NOTE | 2016-11-26 09:19 | HHI.PR ---
Subjective Remarks Follow-up sepsis 11/22/16-patient seen and examined, currently afebrile in no acute event overnight. States he would like to be discharged home 11/23/16-patient seen and examined, stable, no complaint. by the bedside 11/24/16-patient seen and examined; Afebrile. Now on tube feed and taking PO as well as. 11/25/16-patient seen and examined, afebrile and no acute event overnight 11/26/16-patient seen and examined; patient is asking if he can be discharged home Objective Vitals Vital Signs Date Time Temp Pulse Resp B/P Pulse Ox O2 Delivery O2 Flow Rate FiO2 11/26/16 00:00 96.8 73 20 116/61 98 11/25/16 20:00 98.1 74 20 112/64 96 11/25/16 16:00 98.3 74 16 114/59 97 11/25/16 12:00 97.5 79 16 120/62 98 I/O 11/25/16 11/25/16 11/25/16 11/26/16 11/26/16 11/26/16 07:00 15:00 23:00 07:00 15:00 23:00 Intake Total 989 ml 800 ml 1453 ml 1476 ml Output Total 450 ml 400 ml 800 ml Balance 989 ml 350 ml 1053 ml 676 ml Intake Oral 240 ml 800 ml 480 ml 240 ml IV Total 412 ml 366 ml 836 ml Tube Feeding 317 ml 607 ml 400 ml Other 20 ml Output Urine Total 450 ml 400 ml 800 ml # Voids 2 # Bowel Movements 2 1 Result Diagram: 11/25/16 0520 11/22/16 0625 Objective Remarks GENERAL: NAD SKIN: Warm and dry. HEAD: Normocephalic. EYES: No scleral icterus. No injection or drainage. NECK: Supple, trachea midline. No JVD or lymphadenopathy. CARDIOVASCULAR: Regular rate and rhythm without murmurs, gallops, or rubs. RESPIRATORY: Breath sounds equal bilaterally. No accessory muscle use. GASTROINTESTINAL: Abdomen soft, non-tender, nondistended. PEG tube in place MUSCULOSKELETAL: No cyanosis, or edema. BACK: Nontender without obvious deformity. No CVA tenderness. 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 Patient is undergoing radiation chemotherapy. - continue home analgesic regimen -Tube feed restarted and continue with aggressive IV fluid hydration Anemia, normocytic normochromic - stable and continue to monitor H&H Hypomagnesemia-resolved status post replacement Generalized weakness, status post fall - Physical therapy/ occupational therapy eval and treat DVT prop SCDs Discharge Planning Discharge likely 11/27/16 Problem Qualifiers (1) Sepsis: Qualified Code: A41.9 - Sepsis, due to unspecified organism Raza Langley MD November 26, 2016 09:19
[2016-11-26 16:00] VITALS: BP 114/63; PULSE 71; RESP 15; TEMP 98.2; O2SAT 98
[2016-11-26 20:00] VITALS: BP 108/68; PULSE 67; RESP 18; TEMP 98.9; O2SAT 97
[2016-11-27] VITALS: BP 100/62; PULSE 76; RESP 20; TEMP 98.2; O2SAT 99
[2016-11-27] MEDS: PIPERACIL-TAZO 3.375 GM PREMIX 50 ML IV SCH ×4 (00:27→20:36)
[2016-11-27 08:00] VITALS: BP 115/60; PULSE 67; RESP 16; TEMP 98.5; O2SAT 98
[2016-11-27] MEDS: SODIUM CHLOR 0.9% 1000 ML INJ 1,000 ML IV SCH (08:20)
[2016-11-27] MEDS: SENNOSIDES 8.6 MG TAB PO SCH (08:31)
[2016-11-27] MEDS: PANTOPRAZOLE SOD 20 MG DELAYED RELEASE TAB PO SCH (08:31)
[2016-11-27] MEDS: MORPHINE SULFATE 60 MG CONTROLLED RELEASE TAB PO SCH ×2 (08:31→20:30)
[2016-11-27] MEDS: SODIUM CHLORIDE 0.9% FLUSH 10 ML FLUSH IV FLUSH SCH ×2 (08:32→20:29)
--- NOTE | 2016-11-27 10:40 | PD.ONC.PN ---
Subjective Subjective Remarks Afebrile overnight. Patient tells me he is going home today. " I don't want to be in the hospital anymore." Objective Data Date Time Temp Pulse Resp B/P Pulse Ox O2 Delivery O2 Flow Rate FiO2 11/27/16 08:00 98.5 67 16 115/60 98 11/27/16 00:00 98.2 76 20 100/62 99 11/26/16 20:00 98.9 67 18 108/68 97 11/26/16 16:00 98.2 71 15 114/63 98 11/27/16 11/27/16 11/27/16 07:00 15:00 23:00 Intake Total 1360 ml Output Total 650 ml Balance 710 ml Result Diagram: 11/25/16 0520 Administered Medications Medications (Trade) Dose Ordered Sig/[place] Route PRN Reason Start Time Stop Time Status Last Admin Dose Admin Sodium Chloride (NS Flush) 2 ml BID IV FLUSH 11/21/16 21:00 11/26/16 07:46 Sennosides (Senokot) 8.6 mg DAILY PO 11/22/16 09:00 11/27/16 08:31 Morphine Sulfate (Oramorph Sr) 60 mg BID PO 11/22/16 09:00 11/27/16 08:31 Pantoprazole Sodium 20 mg 20 mg DAILY PO 11/22/16 09:00 11/27/16 08:31 Piperacillin Sod/ Tazobactam Sod 50 ml @ 100 mls/hr Q6H IV 11/22/16 13:00 11/27/16 05:47 Sodium Chloride (NS 1000 ml Inj) 1,000 ml @ 84 mls/hr [id number] IV 11/23/16 09:00 11/26/16 21:20 Objective Remarks GENERAL: Thin male, standing upright in room in nad. SKIN: Warm and dry. HEAD: Normocephalic. EYES: No injection or drainage. NECK: Supple, trachea midline. mass, left neck CARDIOVASCULAR: Regular rate and rhythm RESPIRATORY: Breath sounds equal bilaterally. No accessory muscle use. GASTROINTESTINAL: Abdomen soft, non-tender, nondistended. PEG tube in place, receiving Jevity 1.5 @ 40cc/hr EXTREMITIES: No cyanosis NEUROLOGICAL: No obvious focal deficit. Awake, alert, and oriented x3. 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 -- Getting XRT to neck by Dr Guthrie--Dr. Gilbert will speak w/ Dr. Guthrie to resume radiation Hx/Workup: The patient originally developed a left neck mass June 2016. Biopsy confirmed squamous cell carcinoma with extensive necrosis. A CT scan on June 21, 2016 showed a mass in the left sternocleidomastoid muscle and lateral to the left parotid space measuring 1.3 x 2.9 x0.3 cm. The patient had a PET scan that did not identify the primary. He has been getting concurrent chemotherapy and radiation. (2) Cavitary lesion of lung Status: Acute Plan: --ID following, on IV Zosyn (since 11/21) --BC no growth Assessment 66 y/o male with history of squamous cell carcinoma of the neck admitted with weakness after fall at home, likely due to poor PO intake and dehydration. Plan 1. stop IVF 2. consult hoisting laborer for bolus tube feeds 3. check CBC, BMP 4. (Dr. Gilbert) to speak with Dr. Guthrie about resuming XRT. will give [place] chemotherapy once XRT resumed Attending Statement The exam, history, and the medical decision-making described in the above note were completed with the assistance of the mid-level provider. I reviewed and agree with the findings presented. I attest that I had a [id number] encounter with the patient on the same day, and personally performed and documented my assessment and findings in the medical record. Spoke with Dr. Guthrie--one additional XRT treatment left. no further chemotherapy at this time due to poor PFS supportive care as above Amalia Gomez November 27, 2016 10:40 Jorge Gilbert MD November 27, 2016 22:23
--- NOTE | 2016-11-27 11:21 | HHI.PR ---
Subjective Remarks Follow-up sepsis 11/22/16-patient seen and examined, currently afebrile in no acute event overnight. States he would like to be discharged home 11/23/16-patient seen and examined, stable, no complaint. by the bedside 11/24/16-patient seen and examined; Afebrile. Now on tube feed and taking PO as well as. 11/25/16-patient seen and examined, afebrile and no acute event overnight 11/26/16-patient seen and examined; patient is asking if he can be discharged home 11/27/16-patient seen and examined,he is now agreeable for discharge to [facility] Objective Vitals Vital Signs Date Time Temp Pulse Resp B/P Pulse Ox O2 Delivery O2 Flow Rate FiO2 11/27/16 08:00 98.5 67 16 115/60 98 11/27/16 00:00 98.2 76 20 100/62 99 11/26/16 20:00 98.9 67 18 108/68 97 11/26/16 16:00 98.2 71 15 114/63 98 I/O 11/26/16 11/26/16 11/26/16 11/27/16 11/27/16 11/27/16 07:00 15:00 23:00 07:00 15:00 23:00 Intake Total 1476 ml 1848 ml 1491 ml 1360 ml Output Total 800 ml 650 ml 650 ml 650 ml Balance 676 ml 1198 ml 841 ml 710 ml Intake Oral 240 ml 960 ml 480 ml 460 ml IV Total 836 ml 518 ml 442 ml 536 ml Tube Feeding 400 ml 370 ml 569 ml 364 ml Output Urine Total 800 ml 650 ml 650 ml 650 ml # Bowel Movements 2 0 0 Result Diagram: 11/25/16 0520 Objective Remarks GENERAL: NAD SKIN: Warm and dry. HEAD: Normocephalic. EYES: No scleral icterus. No injection or drainage. NECK: Supple, trachea midline. No JVD or lymphadenopathy. CARDIOVASCULAR: Regular rate and rhythm without murmurs, gallops, or rubs. RESPIRATORY: Breath sounds equal bilaterally. No accessory muscle use. GASTROINTESTINAL: Abdomen soft, non-tender, nondistended. PEG tube in place MUSCULOSKELETAL: No cyanosis, or edema. BACK: Nontender without obvious deformity. No CVA tenderness. 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 Patient is undergoing radiation chemotherapy. - continue home analgesic regimen -Tube feed restarted and d/c IV fluid hydration Anemia, normocytic normochromic - stable and continue to monitor H&H Hypomagnesemia-resolved status post replacement Generalized weakness, status post fall - Physical therapy/ occupational therapy eval and treat DVT prop SCDs Discharge Planning Discharge likely 11/27/16 Problem Qualifiers (1) Sepsis: Qualified Code: A41.9 - Sepsis, due to unspecified organism Raza Langley MD November 27, 2016 11:21
[2016-11-27 15:45] LABS: AUTOMATED NEUTROPHIL # 4.2 TH/MM3 (1.8-7.7); BASOPHIL % 0.4 % (0.0-2.0); EOSINOPHIL % 0.1 % (0.0-4.0); LYMPH % 6.4 % (9.0-44.0); LYMPHOCYTE # 0.3 TH/MM3 (1.0-4.8); MEAN CORPUSCULAR HEMOGLOBIN 30.8 PG (27.0-34.0); MEAN CORPUSCULAR HGB CONC 33.4 % (32.0-36.0); MONO % 7.6 % (0.0-8.0); NEUT % 85.5 % (16.0-70.0); PLATELET COUNT 66 TH/MM3 (150-450); RED BLOOD COUNT 3.26 MIL/MM3 (4.50-5.90); RED CELL DISTRIBUTION WIDTH 26.5 % (11.6-17.2); WHITE BLOOD COUNT 4.9 TH/MM3 (4.0-11.0)
[2016-11-27 16:00] VITALS: BP 104/53; PULSE 69; RESP 20; TEMP 96.7; O2SAT 99
[2016-11-27 16:07] LABS: HEMO FLAGS AUTO DIFF
[2016-11-27 16:46] LABS: CALCIUM-PROTEIN CORRECTED 7.9 MG/DL (8.5-10.1)
[2016-11-27 16:52] LABS: POTASSIUM 2.9 MEQ/L (3.5-5.1)
[2016-11-27 17:24] LABS: BANDS 8 % (0-6); BASOPHILS 1 % (0-2); NEUTROPHIL # MANUAL DIFF 4.2 TH/MM3 (1.8-7.7); OVALOCYTES 1+ (NORMAL); PLATELET ESTIMATE SMEAR LOW (NORMAL); PLATELET MORPHOLOGY NORMAL (NORMAL); POLYS (SEG NEUTROPHILS) 78 % (16-70); WBC DIFF SAMPLE 100
[2016-11-27 17:25] LABS: SCAN/DIFF FINAL DIFF MANUAL
[2016-11-27] MEDS ORDERED: POTASSIUM CHLORIDE 20 MEQ CONTROLLED RELEASE TAB PO ONE (18:00)
[2016-11-27 20:00] VITALS: BP 110/58; PULSE 76; RESP 20; TEMP 97; O2SAT 98
[2016-11-28] VITALS: BP 110/58; PULSE 76; RESP 20; TEMP 97; O2SAT 98
[2016-11-28] MEDS: PIPERACIL-TAZO 3.375 GM PREMIX 50 ML IV SCH ×4 (01:39→17:38)
[2016-11-28 08:00] VITALS: BP 118/55; PULSE 143; RESP 16; TEMP 97.9; O2SAT 96
[2016-11-28] MEDS: PANTOPRAZOLE SOD 20 MG DELAYED RELEASE TAB PO SCH (08:08)
[2016-11-28] MEDS: SENNOSIDES 8.6 MG TAB PO SCH (08:08)
[2016-11-28] MEDS: MORPHINE SULFATE 60 MG CONTROLLED RELEASE TAB PO SCH ×2 (08:09→20:32)
[2016-11-28] MEDS: SODIUM CHLORIDE 0.9% FLUSH 10 ML FLUSH IV FLUSH SCH ×2 (09:00→20:32)
[2016-11-28] MEDS: ACETAMINOPHEN/HYDROcodone 325 MG/7.5 MG TAB PO PRN ×2 (09:20→13:48)
--- NOTE | 2016-11-28 10:09 | HHI.PR ---
Subjective Remarks Follow-up sepsis 11/22/16-patient seen and examined, currently afebrile in no acute event overnight. States he would like to be discharged home 11/23/16-patient seen and examined, stable, no complaint. by the bedside 11/24/16-patient seen and examined; Afebrile. Now on tube feed and taking PO as well as. 11/25/16-patient seen and examined, afebrile and no acute event overnight 11/26/16-patient seen and examined; patient is asking if he can be discharged home 11/27/16-patient seen and examined,he is now agreeable for discharge to SNF 11/28/16-patient seen and examined, no acute event overnight. Plan for radiation therapy today Objective Vitals Vital Signs Date Time Temp Pulse Resp B/P Pulse Ox O2 Delivery O2 Flow Rate FiO2 11/28/16 08:00 97.9 143 16 118/55 96 11/28/16 00:00 97.0 76 20 110/58 98 11/27/16 20:00 97.0 76 20 110/58 98 11/27/16 16:00 96.7 69 20 104/53 99 I/O 11/27/16 11/27/16 11/27/16 11/28/16 11/28/16 11/28/16 06:59 14:59 22:59 06:59 14:59 22:59 Intake Total 1360 ml 1400 ml 530 ml 1052 ml Output Total 650 ml 550 ml 650 ml Balance 710 ml 1400 ml -20 ml 402 ml Intake Oral 460 ml 1400 ml 480 ml 440 ml IV Total 536 ml 50 ml 50 ml Tube Feeding 364 ml 562 ml Output Urine Total 650 ml 550 ml 650 ml # Voids 8 # Bowel Movements 0 4 0 0 Result Diagram: 11/27/16 1510 11/27/16 1510 Objective Remarks GENERAL: NAD SKIN: Warm and dry. HEAD: Normocephalic. EYES: No scleral icterus. No injection or drainage. NECK: Supple, trachea midline. No JVD or lymphadenopathy. CARDIOVASCULAR: Regular rate and rhythm without murmurs, gallops, or rubs. RESPIRATORY: Breath sounds equal bilaterally. No accessory muscle use. GASTROINTESTINAL: Abdomen soft, non-tender, nondistended. PEG tube in place MUSCULOSKELETAL: No cyanosis, or edema. BACK: Nontender without obvious deformity. No CVA tenderness. 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 Patient is undergoing radiation chemotherapy today 11/28/16. - continue home analgesic regimen -Tube feed restarted Anemia, normocytic normochromic - stable and continue to monitor H&H Hypomagnesemia-resolved status post replacement Generalized weakness, status post fall - Physical therapy/ occupational therapy eval and treat DVT prop SCDs Problem Qualifiers (1) Sepsis: Qualified Code: A41.9 - Sepsis, due to unspecified organism Raza Langley MD November 28, 2016 10:08
[2016-11-28] MEDS ORDERED: WALKER WHEELS/F1 MIS (10:13)
[2016-11-28] MEDS ORDERED: WHEEMIS3 (10:13)
[2016-11-28 12:00] VITALS: BP 104/66; PULSE 80; RESP 16; TEMP 97.5; O2SAT 99
--- NOTE | 2016-11-28 14:42 | PD.ONC.PN ---
Subjective Subjective Remarks Afebrile overnight. Pt resting in chair at bedside in no distress. He finished XRT today. He is asking when he can go home. No bleeding. Objective Data Date Time Temp Pulse Resp B/P Pulse Ox O2 Delivery O2 Flow Rate FiO2 11/28/16 12:00 97.5 80 16 104/66 99 11/28/16 08:00 97.9 143 16 118/55 96 11/28/16 00:00 97.0 76 20 110/58 98 11/27/16 20:00 97.0 76 20 110/58 98 11/27/16 16:00 96.7 69 20 104/53 99 11/28/16 11/28/16 11/28/16 07:00 15:00 23:00 Intake Total 1052 ml Output Total 650 ml Balance 402 ml Result Diagram: 11/27/16 1510 11/27/16 1510 Laboratory Results Laboratory Tests Test 11/27/16 15:10 White Blood Count 4.9 TH/MM3 Red Blood Count 3.26 MIL/MM3 Hemoglobin 10.0 GM/DL Hematocrit 30.0 % Mean Corpuscular Volume 92.0 FL Mean Corpuscular Hemoglobin 30.8 PG Mean Corpuscular Hemoglobin 33.4 % Concent Red Cell Distribution Width 26.5 % Platelet Count 66 TH/MM3 Mean Platelet Volume 8.3 FL Neutrophils (%) (Auto) 85.5 % Lymphocytes (%) (Auto) 6.4 % Monocytes (%) (Auto) 7.6 % Eosinophils (%) (Auto) 0.1 % Basophils (%) (Auto) 0.4 % Neutrophils # (Auto) 4.2 TH/MM3 Lymphocytes # (Auto) 0.3 TH/MM3 Monocytes # (Auto) 0.4 TH/MM3 Eosinophils # (Auto) 0.0 TH/MM3 Basophils # (Auto) 0.0 TH/MM3 CBC Comment AUTO DIFF Differential Total Cells 100 Counted Neutrophils % (Manual) 78 % Band Neutrophils % 8 % Lymphocytes % 10 % Monocytes % 3 % Basophils % 1 % Neutrophils # (Manual) 4.2 TH/MM3 Differential Comment FINAL DIFF MANUAL Platelet Estimate LOW Platelet Morphology Comment NORMAL Ovalocytes 1+ Sodium Level 142 MEQ/L Potassium Level 2.9 MEQ/L Chloride Level 110 MEQ/L Carbon Dioxide Level 25.0 MEQ/L Anion Gap 7 MEQ/L Blood Urea Nitrogen 4 MG/DL Creatinine 0.24 MG/DL Estimat Glomerular Filtration 387 ML/MIN Rate Random Glucose 111 MG/DL Calcium Level 6.7 MG/DL Protein Corrected Calcium 7.9 MG/DL Total Protein 4.8 GM/DL Administered Medications Medications (Trade) Dose Ordered Sig/[place] Route PRN Reason Start Time Stop Time Status Last Admin Dose Admin Sodium Chloride (NS Flush) 2 ml BID IV FLUSH 11/21/16 21:00 11/28/16 09:00 Acetaminophen/ Hydrocodone Bitart ([place] 7.5-325 Mg) 1 tab Q4H PRN PO pain 1-4 11/21/16 21:30 11/28/16 13:48 Sennosides (Senokot) 8.6 mg DAILY PO 11/22/16 09:00 11/28/16 08:08 Morphine Sulfate (Oramorph Sr) 60 mg BID PO 11/22/16 09:00 11/28/16 08:09 Pantoprazole Sodium 20 mg 20 mg DAILY PO 11/22/16 09:00 11/28/16 08:08 Piperacillin Sod/ Tazobactam Sod (Zosyn 3.375 Gm Premix) 50 ml @ 100 mls/hr Q6H IV 11/22/16 13:00 11/28/16 13:48 Objective Remarks GENERAL: Thin male, sitting up in chair at bedside in no distress. SKIN: Warm and dry. HEAD: Normocephalic. EYES: No injection or drainage. NECK: Supple, trachea midline. Mass, left neck. XRT changes. CARDIOVASCULAR: Regular rate and rhythm RESPIRATORY: Breath sounds equal bilaterally. No accessory muscle use. GASTROINTESTINAL: Abdomen soft, non-tender, nondistended. PEG tube in place, receiving Jevity 1.5 @ 40cc/hr EXTREMITIES: No cyanosis NEUROLOGICAL: No obvious focal deficit. Awake, alert, and oriented x3. 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 -- Finished XRT on 11/28. Hx/Workup: The patient originally developed a left neck mass June 2016. Biopsy confirmed squamous cell carcinoma with extensive necrosis. A CT scan on June 21, 2016 showed a mass in the left sternocleidomastoid muscle and lateral to the left parotid space measuring 1.3 x 2.9 x0.3 cm. The patient had a PET scan that did not identify the primary. He has been getting concurrent chemotherapy and radiation. (2) Cavitary lesion of lung Status: Acute Plan: --ID following, on IV Zosyn (since 11/21) --BC no growth Assessment 66 y/o male with history of squamous cell carcinoma of the neck admitted with weakness after fall at home, likely due to poor PO intake and dehydration. Plan 1. Pt finished XRT today. 2. No further chemo planned at this point until performance status improved. 3. Check CBC as he has had recent worsening thrombocytopenia. Not likely due to XRT. Attending Statement The exam, history, and the medical decision-making described in the above note were completed with the assistance of the mid-level provider. I reviewed and agree with the findings presented. I attest that I had a [id number] encounter with the patient on the same day, and personally performed and documented my assessment and findings in the medical record. OK to D/C from oncology perspective Roxanna Woods November 28, 2016 14:42 Jorge Gilbert MD November 29, 2016 00:24
[2016-11-28] MEDS ORDERED: MISC-163 (14:58)
[2016-11-28 16:00] VITALS: BP 106/59; PULSE 80; RESP 16; TEMP 97.9; O2SAT 100
--- NOTE | 2016-11-28 16:14 | HHI.FF ---
Face to Face Verification Diagnosis: (1) Cavitary lesion of lung (2) Squamous cell carcinoma of head and neck Physical Therapy Order: Evaluate and Treat Home Health Nursing Order: Signs/symptoms of disease process I have seen patient Josue Long on 11/28/16. My clinical findings support the need for the requested home health care services because: Ltd mobility - disease progression Deconditioned w/ increased weakness I certify that my clinical findings support that this patient is homebound because: Unsafe to leave home unassisted Poor cardiac reserve Raza Langley MD November 28, 2016 16:14
[2016-11-28 18:40] LABS: HEMATOCRIT 27.6 % (39.0-51.0); MEAN CELL VOLUME 92.9 FL (80.0-100.0); MEAN CORPUSCULAR HEMOGLOBIN 31.1 PG (27.0-34.0); MEAN CORPUSCULAR HGB CONC 33.4 % (32.0-36.0); PLATELET COUNT 84 TH/MM3 (150-450); RED BLOOD COUNT 2.98 MIL/MM3 (4.50-5.90); RED CELL DISTRIBUTION WIDTH 27.2 % (11.6-17.2); WHITE BLOOD COUNT 5.2 TH/MM3 (4.0-11.0)
[2016-11-28 18:45] LABS: REVIEW FLAG FINAL
[2016-11-28 20:00] VITALS: BP 102/49; PULSE 75; RESP 16; TEMP 98.7; O2SAT 97
[2016-11-29] VITALS: BP 108/53; PULSE 77; RESP 16; TEMP 97.9; O2SAT 100
[2016-11-29] MEDS: PIPERACIL-TAZO 3.375 GM PREMIX 50 ML IV SCH ×3 (00:12→11:39)
[2016-11-29 06:29] LABS: AUTOMATED NEUTROPHIL # 3.3 TH/MM3 (1.8-7.7); BASOPHIL % 0.6 % (0.0-2.0); EOSINOPHIL % 0.3 % (0.0-4.0); LYMPHOCYTE # 0.4 TH/MM3 (1.0-4.8); MEAN CELL VOLUME 92.5 FL (80.0-100.0); MEAN CORPUSCULAR HEMOGLOBIN 31.9 PG (27.0-34.0); MEAN CORPUSCULAR HGB CONC 34.5 % (32.0-36.0); MONO % 10.1 % (0.0-8.0); PLATELET COUNT 107 TH/MM3 (150-450); RED BLOOD COUNT 3.03 MIL/MM3 (4.50-5.90); WHITE BLOOD COUNT 4.1 TH/MM3 (4.0-11.0)
[2016-11-29 06:33] LABS: HEMO FLAGS AUTO DIFF
[2016-11-29 07:10] LABS: ALKALINE PHOSPHATASE 122 U/L (45-117); ALT (GPT) 13 U/L (12-78); ANION GAP 6 MEQ/L (5-15); AST (GOT) 15 U/L (15-37); BICARBONATE 30.6 MEQ/L (21.0-32.0); BLOOD UREA NITROGEN 6 MG/DL (7-18); CHLORIDE 99 MEQ/L (98-107); GLOMERULAR FILTRATION RATE 170 ML/MIN (>89); POTASSIUM 3.9 MEQ/L (3.5-5.1); SODIUM (NA) 136 MEQ/L (136-145); TOTAL BILIRUBIN ADULT 0.2 MG/DL (0.2-1.0)
[2016-11-29] MEDS: PANTOPRAZOLE SOD 20 MG DELAYED RELEASE TAB PO SCH (07:57)
[2016-11-29] MEDS: SENNOSIDES 8.6 MG TAB PO SCH (07:57)
[2016-11-29] MEDS: MORPHINE SULFATE 60 MG CONTROLLED RELEASE TAB PO SCH (07:57)
[2016-11-29] MEDS: SODIUM CHLORIDE 0.9% FLUSH 10 ML FLUSH IV FLUSH SCH (07:58)
[2016-11-29 08:00] VITALS: BP 104/57; PULSE 80; RESP 16; TEMP 98; O2SAT 94
[2016-11-29 08:59] LABS: BANDS 17 % (0-6); BASOPHILS 1 % (0-2); NEUTROPHIL # MANUAL DIFF 3.6 TH/MM3 (1.8-7.7); OVALOCYTES 1+ (NORMAL); PLATELET ESTIMATE SMEAR LOW (NORMAL); PLATELET MORPHOLOGY NORMAL (NORMAL); POLYS (SEG NEUTROPHILS) 70 % (16-70); SCAN/DIFF FINAL DIFF MANUAL; WBC DIFF SAMPLE 100
[2016-11-29 09:00] LABS: TOXIC GRANULATION 1+ (NORMAL)
[2016-11-29] MEDS: ACETAMINOPHEN/HYDROcodone 325 MG/7.5 MG TAB PO PRN ×2 (09:37→13:11)
[2016-11-29] MEDS ORDERED: MILKSUS PO (10:57)
[2016-11-29] MEDS ORDERED: AMOXSUS PO (10:57)
--- NOTE | 2016-11-29 10:59 | HHI.PR ---
Subjective Remarks Follow-up sepsis 11/22/16-patient seen and examined, currently afebrile in no acute event overnight. States he would like to be discharged home 11/23/16-patient seen and examined, stable, no complaint. by the bedside 11/24/16-patient seen and examined; Afebrile. Now on tube feed and taking PO as well as. 11/25/16-patient seen and examined, afebrile and no acute event overnight 11/26/16-patient seen and examined; patient is asking if he can be discharged home 11/27/16-patient seen and examined,he is now agreeable for discharge to SNF 11/28/16-patient seen and examined, no acute event overnight. Plan for radiation therapy today 11/29/16-patient seen and examined, completed radiation therapy yesterday. Eating some grapes without any complication or nausea and vomiting. No acute event overnight. Objective Vitals Vital Signs Date Time Temp Pulse Resp B/P Pulse Ox O2 Delivery O2 Flow Rate FiO2 11/29/16 08:00 98.0 80 16 104/57 94 11/29/16 00:00 97.9 77 16 108/53 100 11/28/16 20:00 98.7 75 16 102/49 97 11/28/16 16:00 97.9 80 16 106/59 100 11/28/16 12:00 97.5 80 16 104/66 99 I/O 11/28/16 11/28/16 11/28/16 11/29/16 11/29/16 11/29/16 07:00 15:00 23:00 07:00 15:00 23:00 Intake Total 1052 ml 560 ml 329 ml 614 ml Output Total 650 ml 1100 ml Balance 402 ml 560 ml 329 ml -486 ml Intake Oral 440 ml 240 ml 240 ml 120 ml IV Total 50 ml 0 ml 100 ml Tube Feeding 562 ml 320 ml 89 ml 364 ml Tube Irrigant 30 ml Output Urine Total 650 ml 1100 ml # Voids 2 2 # Bowel Movements 0 1 0 0 Result Diagram: 11/29/1661111/29/16611 Objective Remarks GENERAL: NAD SKIN: Warm and dry. HEAD: Normocephalic. EYES: No scleral icterus. No injection or drainage. NECK: Supple, trachea midline. No JVD or lymphadenopathy. CARDIOVASCULAR: Regular rate and rhythm without murmurs, gallops, or rubs. RESPIRATORY: Breath sounds equal bilaterally. No accessory muscle use. GASTROINTESTINAL: Abdomen soft, non-tender, nondistended. PEG tube in place MUSCULOSKELETAL: No cyanosis, or edema. BACK: Nontender without obvious deformity. No CVA tenderness. 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 Patient completed radiation chemotherapy 11/28/16. - continue home analgesic regimen -Tube feed with tray For Bolus Feedings, Jevity 1.5, 360ml(1.5 cans)@ 8am, 11am, 2pm and 240ml(1-can)@ 5pm and 8pm free water flush 85ml before and 85ml after each bolus feedings Anemia, normocytic normochromic - stable and continue to monitor H&H Hypomagnesemia-resolved status post replacement Generalized weakness, status post fall - Physical therapy/ occupational therapy eval and treat DVT prop SCDs Problem Qualifiers (1) Sepsis: Qualified Code: A41.9 - Sepsis, due to unspecified organism Raza Langley MD November 29, 2016 10:59
--- NOTE | 2016-11-29 11:02 | HHI.DS ---
Discharge Summary Admission Date November 21, 2016 at 16:52 Discharge Date: November 29, 2016 Admitting Diagnosis lung mass, sepsis (1) Cavitary lesion of lung ICD Code: J98.4 (2) Sepsis ICD Code: A41.9 (3) Squamous cell carcinoma of head and neck ICD Code: C76.0 (4) Weakness ICD Code: R53.1 Procedures none Brief History - From Admission Patient is a 66-year-old old with primary medical history of 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 As per records, fall was unwitnessed, patient was found on the floor with a head contusion. Patient is currently being treated for thyroid cancer undergoing chemotherapy and radiation. Patient seen and examined. Requesting to go home. Poor historian but states that he remembered he had a fall yesterday denies any pain or discomfort. Denies SOB/ dyspnea. Denies chest pain, palpitations, headaches, dizziness. Denies fevers, chills, n/ v/d. Denies hematuria, dysuria. Patient states he has urged urinate since the Ruano catheter has been placed. Discussed with patient importance of staying at the hospital for further treatment. Patient was recently hospitalized 10/31/16, for altered mental status, dehydration, hypokalemia. He was discharged 11/03/16. He has been following with his oncologist Dr. Guthrie and he is also due to be seen by Dr. Cuevas. CBC/BMP: 11/29/16 0612 11/29/16 0612 Significant Findings Laboratory Tests Test 11/27/16 11/28/16 11/29/16 15:10 18:25 06:12 Red Blood Count 3.26 MIL/MM3 2.98 MIL/MM3 3.03 MIL/MM3 (4.50-5.90) (4.50-5.90) (4.50-5.90) Hemoglobin 10.0 GM/DL 9.2 GM/DL 9.7 GM/DL (13.0-17.0) (13.0-17.0) (13.0-17.0) Hematocrit 30.0 % 27.6 % 28.0 % (39.0-51.0) (39.0-51.0) (39.0-51.0) Red Cell Distribution Width 26.5 % 27.2 % 27.0 % (11.6-17.2) (11.6-17.2) (11.6-17.2) Platelet Count 66 TH/MM3 84 TH/MM3 107 TH/MM3 (150-450) (150-450) (150-450) Neutrophils (%) (Auto) 85.5 % 80.0 % (16.0-70.0) (16.0-70.0) Lymphocytes (%) (Auto) 6.4 % (9.0-44.0) Lymphocytes # (Auto) 0.3 TH/MM3 0.4 TH/MM3 (1.0-4.8) (1.0-4.8) Neutrophils % (Manual) 78 % (16-70) Band Neutrophils % 8 % (0-6) 17 % (0-6) Platelet Estimate LOW (NORMAL) LOW (NORMAL) Ovalocytes 1+ (NORMAL) 1+ (NORMAL) Potassium Level 2.9 MEQ/L (3.5-5.1) Chloride Level 110 MEQ/L (98-107) Blood Urea Nitrogen 4 MG/DL (7-18) 6 MG/DL (7-18) Creatinine 0.24 MG/DL 0.49 MG/DL (0.60-1.30) (0.60-1.30) Random Glucose 111 MG/DL 174 MG/DL (74-106) (74-106) Calcium Level 6.7 MG/DL (8.5-10.1) Protein Corrected Calcium 7.9 MG/DL (8.5-10.1) Total Protein 4.8 GM/DL 6.1 GM/DL (6.4-8.2) (6.4-8.2) Monocytes (%) (Auto) 10.1 % (0.0-8.0) Lymphocytes % 7 % (9-44) Toxic Granulation 1+ (NORMAL) Alkaline Phosphatase 122 U/L (45-117) Albumin 2.0 GM/DL (3.4-5.0) PE at Discharge GENERAL: NAD SKIN: Warm and dry. HEAD: Normocephalic. EYES: No scleral icterus. No injection or drainage. NECK: Supple, trachea midline. No JVD or lymphadenopathy. CARDIOVASCULAR: Regular rate and rhythm without murmurs, gallops, or rubs. RESPIRATORY: Breath sounds equal bilaterally. No accessory muscle use. GASTROINTESTINAL: Abdomen soft, non-tender, nondistended. PEG tube in place MUSCULOSKELETAL: No cyanosis, or edema. BACK: Nontender without obvious deformity. No CVA tenderness. Hospital Course Patient admitted secondary to severe sepsis due to pulmonary infiltrate likely aspiration pneumonia for which she was started on IV antibiotics with consultation to infectious disease specialist. Oncology was consulted as patient has a history of squamous cell carcinoma of the neck and he underwent radiation therapy. He was restarted on tube feed with tray with monitoring of caloric intake. All electrolyte abnormalities were corrected accordingly. Physical therapy was consulted. DVT and GI prophylaxis were provided. Prior to discharge, patient condition improved and vital remained stable. He will be discharged on by mouth liquid Augmentin Pt Condition on Discharge: Stable Discharge Disposition: Disch w/ Home Health Serv Discharge Time: > 30 minutes Discharge Instructions DIET: Follow Instructions for: Heart Healthy Diet, On Tube Feeding Speech Therapy-Diet Recommends: Regular Activities you can perform: Regular-No Restrictions Follow up Referrals: Oncology PCP Follow-up - 1 Week SNF/[facility]/ with [facility] New Medications: 3-in-1 Bedside Toilet (3-in-1 Bedside Toilet) 1 Mis Mis 1 EA .ROUTE DIRECTED #1 EA Amoxicillin-Clavulanate Liq (Augmentin Es-600 Liq) 600-42.9 Mg/5 Ml Susp 750 MG PO BID Not for adults, adolescents, or children >/= 40kg. Not interchangeable with 200 mg/5 mL or 400 mg/5 mL due to clavulanic acid. Infection #14 Ref 0 ML Walker with Front Wheels (Walker with Front Wheels) 1 Mis Mis 1 EA .ROUTE DIRECTED #1 Ref 0 EA Wheelchair (Wheelchair) 1 Mis Mis 1 EA .ROUTE DIRECTED #1 Ref 0 EA Magnesium Hydroxide Liq (Milk of Magnesia Liq) 400 Mg/5 Ml Susp 30 ML PO Q12H PRN CONSTIPATION #100 ML Continued Medications: Alprazolam (Alprazolam) 0.25 Mg Tab 0.25 MG PO Q4H PRN ANXIETY Ref 0 TAB Hydrocodone-Acetaminophen (Hydrocodone-Acetaminophen) 7.5-325 mg Tab 1 TAB PO Q4H PRN PAIN Ref 0 TAB Hydromorphone (Hydromorphone) 2 Mg Tab 2 MG PO Q6H PRN PAIN Ref 0 TAB Morphine Sulfate CR (Morphine Sulfate CR) 15 Mg Tab 60 MG PO BID Omeprazole (Omeprazole) 20 Mg Tab 20 MG PO DAILY #30 Ref 0 TAB Sennosides (Senokot) 8.6 Mg Tab 8.6 MG PO DAILY Constipation Ref 0 TAB Raza Langley MD November 29, 2016 11:02
[2016-11-29 12:00] VITALS: BP 106/58; PULSE 72; RESP 16; TEMP 97.9; O2SAT 94
== END 2016-11-29 14:06 | disposition home or self-care (01) | DRG 871 ==
LOC: NEPC 12:07 → NEDA 16:52 → N07A 19:50
PROVIDERS: ADMIT Hospitalist; ATTEND Hospitalist
DX: A41.9 Sepsis, unspecified organism (principal); J69.0 Pneumonitis due to inhalation of food and vomit; R64 Cachexia; E83.42 Hypomagnesemia; D69.6 Thrombocytopenia, unspecified; C77.0 Secondary and unspecified malignant neoplasm of lymph nodes of head, face and neck; Z68.1 Body mass index [BMI] 19.9 or less, adult; J44.9 Chronic obstructive pulmonary disease, unspecified; C73 Malignant neoplasm of thyroid gland; K21.9 Gastro-esophageal reflux disease without esophagitis; S00.01XA Abrasion of scalp, initial encounter; R65.20 Severe sepsis without septic shock; C44.42 Squamous cell carcinoma of skin of scalp and neck; R13.10 Dysphagia, unspecified; E86.0 Dehydration; D64.81 Anemia due to antineoplastic chemotherapy; T45.1X5A Adverse effect of antineoplastic and immunosuppressive drugs, initial encounter; F10.10 Alcohol abuse, uncomplicated; F17.210 Nicotine dependence, cigarettes, uncomplicated; W19.XXXA Unspecified fall, initial encounter; Y92.009 Unspecified place in unspecified non-institutional (private) residence as the place of occurrence of the external cause; Z80.1 Family history of malignant neoplasm of trachea, bronchus and lung; Z85.819 Personal history of malignant neoplasm of unspecified site of lip, oral cavity, and pharynx; Z91.19 Patient's noncompliance with other medical treatment and regimen; Z92.3 Personal history of irradiation; Z93.1 Gastrostomy status
CPT/HCPCS: 36430; 70450; 71010; 71260; 72125; 74177; 80048; 80053; 81001; 82550; 83605; 83735; 84155; 84484; 85007; 85027; 85610; 85730; 86850; 86900; 86901; 86920; 87040; 87086; 93005; 96361; 96365; 96367; 96368; J1642; J2543; J3370; J3475; J7030; J7050; P9016; Q9967